=== PATIENT | male | born 1955 | race Caucasian/White ===

== ENCOUNTER → 2020-10-29 08:02 | Outpatient (BNVA) | payer OTHER, SELFPAY | PROVIDERS: Visit Provider Psychiatry & Neurology Neurology | DX: Z76.89 Persons encountering health services in other specified circumstances (principal) ==

== ENCOUNTER 2020-11-15 07:52 | Outpatient (REF) | payer OTHER, SELFPAY ==
--- NOTE | 2020-11-15 07:55 | CT_ITS ---
EXAMINATION: CT MAXILLOFACIAL WITHOUT CONTRAST CLINICAL INFORMATION: Deviated septum. COMPARISON: None. TECHNIQUE: Multidetector helical imaging was performed in the axial plane with generation of coronal and sagittal reformatted images. This CT examination was performed using dose optimization techniques as appropriate, variously including the following: *Automated exposure control *Adjustment of mA and/or kV according to patient size (this includes techniques or standardized protocols for targeted exams where dose is matched to indication/reason for exam; i.e. extremities or head) *Use of iterative reconstruction technique DLP: 126 mGy-cm. FINDINGS: Aside from very mild mucosal thickening in the right maxillary antrum and in the ethmoid air cells, the remaining paranasal sinuses are fairly well aerated. There is a sigmoidal-shaped nasal septal deviation with a leftward curvature anterosuperiorly and a rightward curvature posteriorly. Nasal septal spurring projects into the right nasal passage with mild distortion of the right inferior turbinate. The ostiomeatal complexes are clear. The lamina papyracea are intact. The ethmoid roofs are asymmetric. The carotid canals are normally covered by bone. Multiple root canals noted. The mastoid air cells and visualized middle ear cavities are well aerated. The orbits are normal. The TMJs are unremarkable. The imaged portions of the brain demonstrate no acute abnormality. CT/CT sinus wo con IMPRESSION: Moderate sigmoidal-shaped nasal septal deviation with nasal septal spurring. Very mild mucosal thickening in the right maxillary and ethmoid sinuses.
== END 2020-11-15 07:53 | disposition home or self-care (01) ==
LOC: HO.CT 07:52
PROVIDERS: PCP Nurse Practitioner Family; Visit Provider Otolaryngology
DX: J34.2 Deviated nasal septum (principal); J33.8 Other polyp of sinus
CPT/HCPCS: 70486

== ENCOUNTER 2021-03-26 10:15 | Outpatient (REF) | payer OTHER, SELFPAY ==
[2021-03-26 10:59] LABS: Glucose Urine UA NEG (NEG); Leukocyte Esterase Urine NEG (NEG); Nitrite Urine NEG (NEG); Specific Gravity - Urine <= 1.005 (1.005-1.025); Urine Blood NEG (NEG); Urine Ketones NEG (NEG); Urine Protein NEG (NEG-TRACE)
[2021-03-26 11:01] LABS: Appearance Urine CLEAR; Color Urine STRAW
[2021-03-26 11:19] LABS: RBC Urine 0 /HPF (0); WBC Urine 0 /HPF (0-4)
== END 2021-03-26 10:16 | disposition home or self-care (01) ==
LOC: HO.LAB 10:15
PROVIDERS: PCP Nurse Practitioner Family; Visit Provider Urology
DX: N39.0 Urinary tract infection, site not specified (principal)
CPT/HCPCS: 81001; 87086

== ENCOUNTER 2021-03-31 10:15 | Outpatient (REF) | payer MEDICARE, OTHER, SELFPAY ==
--- NOTE | ~2021-03-31 | XR_ITS ---
EXAMINATION: XR HIP, LEFT CLINICAL INFORMATION: Pain left hip COMPARISON: None. TECHNIQUE: Two views of the left hip. FINDINGS: No fracture, dislocation, or destructive process. There is no focal joint narrowing or erosive change or definite subchondral sclerosis. Soft tissue planes are unremarkable. No widening left SI joint or pubis. XR/XR hip LT min 2V IMPRESSION: No focal joint narrowing or erosive change.
[2021-03-31 11:49] LABS: Alanine Aminotransferase 24 U/L (0-40); Albumin Level 4.8 g/dL (3.5-5.0); Alkaline Phosphatase 75 U/L (39-117); Anion Gap 12 (12-20); Aspartate Amino Transferase 17 U/L (5-37); Bilirubin Total 0.6 mg/dL (0.0-1.0); Blood Urea Nitrogen 20 mg/dL (9-16); Calcium 9.9 mg/dL (8.4-10.2); Carbon Dioxide 29 mmol/L (22-29); Chloride 104 mmol/L (96-108); Cholesterol 225 mg/dL; Estimated Glomerular Filt Rate > 60; Glucose Fasting 98 mg/dL (60-99); HDL Cholesterol 46 mg/dL; LDL Cholesterol Calculated 143 mg/dl; Sodium 140 mmol/L (135-145); Total Protein 7.5 g/dL (6.5-8.0); Triglycerides 184 mg/dL
[2021-03-31 12:13] LABS: Prostate Specific Antigen Scr 0.22 ng/mL (<0.05-4.0); TSH reflex Free T4 0.98 uIU/mL (0.32-4.0)
== END 2021-03-31 10:16 | disposition home or self-care (01) ==
LOC: HO.HMGCX 10:15
PROVIDERS: PCP Nurse Practitioner Family; Visit Provider Nurse Practitioner Family
DX: Z12.5 Encounter for screening for malignant neoplasm of prostate (principal); M25.552 Pain in left hip; I10 Essential (primary) hypertension
CPT/HCPCS: 36415; 73502; 80053; 80061; 84153; 84443

== ENCOUNTER 2021-04-04 09:11 | Outpatient (REF) | payer MEDICARE, OTHER, SELFPAY | END 2021-04-04 09:12 | disposition home or self-care (01) | LOC: HO.10HDL 09:11 | PROVIDERS: Visit Provider Physician Assistant Medical | DX: Z13.89 Encounter for screening for other disorder (principal) ==

== ENCOUNTER → 2021-04-17 08:06 | Outpatient (REF) | payer MEDICARE, OTHER, SELFPAY ==
--- NOTE | ~2021-04-17 | NM_ITS ---
Exercise Myocardial perfusion study Indication: Shortness of breath to evaluate for myocardial ischemia Technique: The patient was brought in for an exercise perfusion study on 04/17/2021. Patient performed exercise as per Suman protocol and was injected 40 mCi of sestamibi was given intravenously one target HR was achieved. Images were obtained using the SPECT gamma camera interlaced with the gating device. Images were obtained in supine position. Resting perfusion study was performed on 04/18/2021. Patient was administered 40 mCi of sestamibi intravenously at rest. Images were then obtained in supine position. Images obtained with and without CT attenuation. Total DLP 113 mGy-cm. Images were processed with the software and compared side to side in short axis, horizontal long axis and vertical long axis views. Findings: The stress perfusion study showed non attenuated images show mildly to moderately reduced uptake in the inferior wall of the LV myocardium. Remainder of the LV myocardium is normally perfused. Attenuation corrected images show normal uptake of radiotracer in all segments of LV myocardium. The gated study shows normal LV systolic function with calculated LVEF of 70%. LV cavity is normal in size. The gated study shows normal systolic wall thickening and contraction of all segments. There is no transient ischemic dilation. Resting study shows no change in perfusion pattern compared to stress perfusion study. Gating at rest reveals normal systolic wall motion with ejection fraction at 70%. The findings are consistent with normal myocardial perfusion. NM/NM vadim perf SPECT rest & str Impression: 1. Normal myocardial perfusion 2. Gated LVEF is 70% 3. Transient ischemic dilatation not present Stress EKG is negative for ischemia
--- NOTE | 2021-04-17 09:36 | CA_ITS ---
Acquisition Time: 2021-04-17 08:18:35 Total Exercise Time: 00:07:20 Test Indications: SOB, HTN Medications: SEE CHART Protocol: HIPOLITO Max HR: 142 BPM 91% of Pred: 155 BPM Max BP: 168/098 mmHG Max Work Load: 9.0 METS Exercise stress nuclear using Hipolito protocol, total of 7 min 20 sec, METS 9.00, TAPHR 91 %. Pt tolerated well, denies any anginal sx. EKG with isolated PVC's no ischemic changes seen during exercise or in recovery. Nuclear images to follow. Normotensive response to exercise. Test reviewed with Dr. Clarke. Referred By: Landon Wong Overread By: Raya Hearn NP
== END ==
LOC: HO.CARD 08:06
PROVIDERS: Visit Provider Nurse Practitioner Family
DX: R06.02 Shortness of breath (principal)
CPT/HCPCS: 78452; 93016; 93017; 93018; A9500

== ENCOUNTER → 2021-08-15 09:02 | Outpatient (BNVA) | payer MEDICARE, OTHER, SELFPAY | PROVIDERS: PCP Nurse Practitioner Family; Visit Provider Urology | DX: N48.1 Balanitis (principal); N40.1 Benign prostatic hyperplasia with lower urinary tract symptoms; R35.1 Nocturia | CPT/HCPCS: 51798; 99212 ==

== ENCOUNTER → 2021-09-16 08:55 | Outpatient (BNVA) | payer MEDICARE, OTHER, SELFPAY | PROVIDERS: PCP Nurse Practitioner Family; Visit Provider Urology | DX: N40.1 Benign prostatic hyperplasia with lower urinary tract symptoms (principal); R35.1 Nocturia | CPT/HCPCS: 52000; 99212 ==

== ENCOUNTER → 2021-11-07 11:14 | Outpatient (BNVA) | payer MEDICARE, OTHER, SELFPAY | PROVIDERS: PCP Nurse Practitioner Family; Visit Provider Urology ==

== ENCOUNTER 2021-12-17 11:05 | Outpatient (REF) | payer MEDICARE, OTHER, SELFPAY ==
[2021-12-17 13:58] LABS: MANUAL DIFF FLAG NO
[2021-12-17 14:01] LABS: Basophils Percent Auto 0.6 % (0-2); Eosinophils Absolute Auto 0.1 X10*3/uL (0.0-0.4); Eosinophils Percent Auto 2.3 % (0-4); Hematocrit 43.4 % (42.0-52.0); Hemoglobin 14.8 g/dl (14.0-18.0); Imm Gran Abs Auto 0.01 X10*3/uL (0.00-0.03); Imm Gran Pct Auto 0.2 % (0.0-0.4); Lymphocytes Absolute Auto 1.7 X10*3/uL (1.2-4.9); Lymphocytes Percent Auto 32.5 % (20-40); Mean Corpuscular HGB Conc 34.1 g/dl (31.0-36.0); Mean Corpuscular Hemoglobin 29.4 pg (27.0-33.0); Mean Corpuscular Volume 86.3 fL (80.0-98.0); Mean Platelet Volume 9.6 fL (9.4-12.4); Monocytes Absolute Auto 0.5 X10*3/uL (0.1-1.2); Monocytes Percent Auto 9.9 % (2-11); Neutrophils Absolute Auto 2.9 x10*3/uL (2.0-8.3); Neutrophils Percent Auto 54.5 % (45-73); Platelet Count 224 X10*3/uL (160-400); Red Blood Count 5.03 X10*6/uL (4.60-5.80); Red Cell Distribution Width 12.8 % (11.0-16.0); White Blood Count 5.2 X10*3/uL (4.8-10.8)
[2021-12-17 14:28] LABS: Alanine Aminotransferase 43 U/L (0-40); Albumin Level 4.8 g/dL (3.5-5.0); Alkaline Phosphatase 76 U/L (39-117); Anion Gap 14 (12-20); Aspartate Amino Transferase 28 U/L (5-37); Bilirubin Total 0.6 mg/dL (0.0-1.0); Blood Urea Nitrogen 16 mg/dL (9-16); Calcium 10.1 mg/dL (8.4-10.2); Carbon Dioxide 27 mmol/L (22-29); Chloride 102 mmol/L (96-108); Estimated Glomerular Filt Rate 57; Glucose Random 100 mg/dL (60-115); Potassium 4.6 mmol/L (3.3-5.1); Sodium 138 mmol/L (135-145); Total Protein 7.9 g/dL (6.5-8.0)
== END 2021-12-17 11:06 | disposition home or self-care (01) ==
LOC: HO.10HDL 11:05
PROVIDERS: Visit Provider Physician Assistant Medical
DX: L40.0 Psoriasis vulgaris (principal); Z79.899 Other long term (current) drug therapy
CPT/HCPCS: 36415; 80053; 85025

== ENCOUNTER 2022-12-09 14:50 | Outpatient (REF) | payer MEDICARE, OTHER, SELFPAY ==
[2022-12-12 05:29] LABS: TS Negative Control Passed; TS Panel A 2; TS Panel B 4; TS Positive Control Passed; TSpotTB Negative (Negative)
== END 2022-12-09 14:51 | disposition home or self-care (01) ==
LOC: HO.LAB 14:50
PROVIDERS: PCP Nurse Practitioner Family; Visit Provider Physician Assistant Medical
DX: Z11.1 Encounter for screening for respiratory tuberculosis (principal); L40.0 Psoriasis vulgaris
CPT/HCPCS: 36415; 86481

== ENCOUNTER 2023-07-22 13:02 | Outpatient (AMB) | payer MEDICARE, OTHER, SELFPAY ==
--- NOTE | 2023-07-22 13:20 | MHC.PC.OV ---
Vital Signs 07/22/23 13:21 Height 6 ft 1 in Weight 278 lb BMI 36.7 BP 142/94 H Blood Pressure Location Rt brachial Position Sitting Pulse 88 Pulse Source Pulse Oximeter Pulse Oximetry (%) 98 Oxygen Delivery Method Room Air Intake Visit Reasons: 3 month ffup asthma Allergies oxycodone Allergy (Unknown, Verified 07/22/23 13:25) itchy ENVIRONMENTAL Allergy (Unknown, Uncoded 07/22/23 13:25) ITCHY EYES, WHEEZING statins Allergy (Unknown, Uncoded 07/22/23 13:25) hives Tremfya Allergy (Unknown, Uncoded 07/22/23 13:25) secondary rash Medication List - Last Reconciled 07/22/23 by ANANT Wallace albuterol sulfate 2.5 mg (3 mL) inhalation QID PRN aspirin (Adult Aspirin Regimen) 81 mg PO DAILY famotidine (Pepcid AC) 20 mg PO BID loratadine (Allergy Relief (loratadine)) 10 mg PO DAILY pantoprazole 40 mg PO DAILY 90 days secukinumab (Cosentyx Pen 300 mg/2 Pens () mg subcut Q4W Tobacco use date assessed: 07/22/23 Fall risk assessment: No Falls in past year Last assessed Fall Risk: 07/22/23 Dental Screening Dental Screen Date: 07/22/23 Did you have a dental visit in the last 12 months?: Yes Did you have a dental problem in the last 6 months where you did not have access to dental care?: No Was dental information given to patient?: Patient has dentist HPI 3 month ffup asthma HPI Details HTN: Pt is not currently taking any medications for this. Pt reports that his blood pressure is much better at home. 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 He will continue to monitor his BP at home. Denies chest pain, shortness of breath, headache, dizziness, and blurred vision. Pt c/o pain to his right thumb after an injury many years ago. He reports pain to the base of his thumb. Will order xr. Due for colon screen, will refer to GI. Due for PSA, will order. Denies dribbling with urination, weak stream, and nocturia. [facility] Medical History (Updated 07/22/23 @ 14:17 by ANANT Wallace) Asthma Balanitis Benign prostatic hyperplasia with lower urinary tract symptoms Feeling of incomplete bladder emptying GERD (gastroesophageal reflux disease) Gross hematuria Nocturia Psoriatic arthritis Surgical History H/O umbilical hernia repair History of prostate surgery History of surgery Family History Father Diabetes Hypertension Cancer Mother Hypertension Cancer Social History Housing: House Patient Tobacco Use Status: Never used Tobacco e-Cigarette/Vaping Use: Never Used Second Hand Smoke Exposure: No Current occupational status: retired Cognitive needs: No Hearing needs: No Vision needs: No Review of Systems Const Reports as per HPI Physical exam (Primary Care) Vital Signs: Last Vital Signs Pulse 88 07/22/23 13:21 BP 142/94 H 07/22/23 13:21 Pulse Ox 98 07/22/23 13:21 Oxygen Delivery Method Room Air 07/22/23 13:21 BMI result Body Mass Index 36.7 Tobacco/Smoking Status: Tobacco use Status Tobacco use date assessed 07/22/23 07/22/23 13:29 Patient Tobacco Use Status Never used Tobacco 07/22/23 13:21 e-Cigarette/Vaping Use Never Used 07/22/23 13:29 Const General: cooperative Nutritional Appearance: obese Orientation/consciousness: patient oriented x3 Resp Effort & Inspection: normal respiratory effort Auscultation: clear to auscultation bilaterally Cardio Rate: regular rate Rhythm: regular rhythm Heart sounds: S1 normal heart sound present and S2 normal heart sound present Neuro General: patient oriented x3 Extrem Other: right thenar swollen, slight tenderness with touch, weakness with flexion of right thumb, extensive varicose veins to BLE Right lower extremity: no edema Left lower extremity: no edema Psych Appearance: grossly normal Mental Status: mental status grossly normal Speech and movement: Normal speech and movement present Affect: normal affect Attitude: cooperative Thought process: Normal thought process present Thought content: Normal thought content present Insight: Good insight present (Psych) Judgement: Good judgement present (Psych) Assessment and Plan Assessment & Plan (1) HTN (hypertension): Code(s): I10 - Essential (primary) hypertension Plan: Continue to monitor BP at home (2) Screening for colon cancer: Code(s): Z12.11 - Encounter for screening for malignant neoplasm of colon Plan: Referred to GI (3) Screening PSA (prostate specific antigen): Code(s): Z12.5 - Encounter for screening for malignant neoplasm of prostate Plan: PSA ordered (4) Pain of right thumb: Code(s): M79.644 - Pain in right finger(s) (5) Obesity: Code(s): E66.9 - Obesity, unspecified (6) Obstructive sleep apnea: Code(s): G47.33 - Obstructive sleep apnea (adult) (pediatric) Plan The patient agreed to the use of a biomedical field service engineer for this encounter. Scribed for KACY Quintanilla-TRAMAINE by Cathi Barkley biomedical field service engineer, on 07/22/2023 at 13:30 EST. Orders: Orders Comprehensive Bypro. Panel Fast Today I10 - Essential (primary) hypertension Lipid Panel Today I10 - Essential (primary) hypertension TSH reflex Free T4 Today I10 - Essential (primary) hypertension Complete Blood Count Auto Diff Today I10 - Essential (primary) hypertension UA CC w/rflx Micro + Cult Today I10 - Essential (primary) hypertension Prostate Specific Antigen Scr Today Z12.5 - Encounter for screening for malignant neoplasm of prostate XR finger RT min 2V Today M79.644 - Pain in right finger(s) CA echo transthoracic complete Today E66.9 - Obesity, unspecified, G47.33 - Obstructive sleep apnea (adult) (pediatric), I10 - Essential (primary) hypertension Referrals Gastroenterology Referral Z12.11 - Encounter for screening for malignant neoplasm of colon Coding Level of Care Code Est Pt Level 3 (09203) Diagnoses HTN (hypertension) I10 Screening for colon cancer Z12.11 Screening PSA (prostate specific antigen) Z12.5 Pain of right thumb M79.644 Obesity E66.9 Obstructive sleep apnea G47.33
[2023-07-22 13:21] VITALS: BP 142/94; PULSE 88; O2SAT 98; BMI 36.7
== END 2023-07-22 14:32 | disposition home or self-care (01) ==
PROVIDERS: PCP Nurse Practitioner Family; Visit Provider Nurse Practitioner Family
DX: I10 Essential (primary) hypertension (principal); M79.644 Pain in right finger(s); E66.9 Obesity, unspecified; Z68.36 Body mass index [BMI] 36.0-36.9, adult; G47.33 Obstructive sleep apnea (adult) (pediatric)
CPT/HCPCS: 99213

== ENCOUNTER 2023-07-23 08:23 | Outpatient (REF) | payer MEDICARE, OTHER, SELFPAY ==
--- NOTE | ~2023-07-23 | XR_ITS ---
EXAMINATION: XR THUMB, RIGHT CLINICAL INFORMATION: Pain. COMPARISON: None available. TECHNIQUE: Three views of the right thumb. FINDINGS: There is bony demineralization. There is mild osteoarthritic change of the interphalangeal joint of the thumb. There is marked osteoarthritic change of the first carpometacarpal joint. No fracture or dislocation is seen. Normal sesamoid bones are noted. There is no focal soft tissue swelling, gas or foreign body. XR/XR finger RT min 2V IMPRESSION: There is mild osteoarthritic change of the interphalangeal joint of the right thumb, and marked osteoarthritic change is seen of the first carpometacarpal joint. No fracture or dislocation is seen.
[2023-07-23 11:22] LABS: MANUAL DIFF FLAG NO
[2023-07-23 11:33] LABS: Basophils Absolute Auto 0.1 X10*3/uL (0.0-0.2); Basophils Percent Auto 1.7 % (0-2); Eosinophils Absolute Auto 0.2 X10*3/uL (0.0-0.4); Hematocrit 42.9 % (42.0-52.0); Hemoglobin 14.6 g/dl (14.0-18.0); Imm Gran Abs Auto 0.01 X10*3/uL (0.00-0.03); Imm Gran Pct Auto 0.2 % (0.0-0.4); Lymphocytes Absolute Auto 1.4 X10*3/uL (1.2-4.9); Lymphocytes Percent Auto 28.3 % (20-40); Mean Corpuscular Hemoglobin 29.6 pg (27.0-33.0); Mean Platelet Volume 9.9 fL (9.4-12.4); Monocytes Absolute Auto 0.5 X10*3/uL (0.1-1.2); Monocytes Percent Auto 10.7 % (2-11); Neutrophils Absolute Auto 2.6 x10*3/uL (2.0-8.3); Neutrophils Percent Auto 55.1 % (45-73); Platelet Count 223 X10*3/uL (160-400); Red Blood Count 4.93 X10*6/uL (4.60-5.80); Red Cell Distribution Width 12.7 % (11.0-16.0); White Blood Count 4.8 X10*3/uL (4.8-10.8)
[2023-07-23 11:39] LABS: Appearance Urine Clear; Color Urine Yellow; Glucose Urine UA Negative (Negative); Leukocyte Esterase Urine Negative (Negative); Nitrite Urine Negative (Negative); PH 5.5 (5.0-9.0); Specific Gravity - Urine 1.015 (1.005-1.025); Urine Blood Negative (Negative); Urine Ketones Negative (Negative); Urine Protein Negative (Neg-Trace)
[2023-07-23 12:25] LABS: Alanine Aminotransferase 46 U/L (0-40); Albumin Level 4.6 g/dL (3.5-5.0); Alkaline Phosphatase 77 U/L (39-117); Anion Gap 13 (12-20); Aspartate Amino Transferase 27 U/L (5-37); Bilirubin Total 0.5 mg/dL (0.0-1.0); Blood Urea Nitrogen 17 mg/dL (9-16); Calcium 9.8 mg/dL (8.4-10.2); Carbon Dioxide 27 mmol/L (22-29); Chloride 105 mmol/L (96-108); Cholesterol 228 mg/dL (<200); Estimated Glomerular Filt Rate 57; Glucose Fasting 112 mg/dL (60-99); HDL Cholesterol 49 mg/dL (>40); LDL Cholesterol Calculated 134 mg/dL (<100); Potassium 4.8 mmol/L (3.3-5.1); Sodium 140 mmol/L (135-145); Total Protein 7.5 g/dL (6.5-8.0); Triglycerides 227 mg/dL (<150)
[2023-07-23 12:28] LABS: TSH reflex Free T4 1.46 uIU/mL (0.32-4.0)
[2023-07-23 12:35] LABS: Prostate Specific Antigen Scr 0.23 ng/mL (<0.05-4.0)
== END 2023-07-23 08:24 | disposition home or self-care (01) ==
LOC: HO.HMGCX 08:23
PROVIDERS: PCP Nurse Practitioner Family; Visit Provider Nurse Practitioner Family
DX: M79.644 Pain in right finger(s) (principal); I10 Essential (primary) hypertension; Z12.5 Encounter for screening for malignant neoplasm of prostate
CPT/HCPCS: 36415; 73140; 80053; 80061; 81003; 84153; 84443; 85025

== ENCOUNTER 2023-08-10 08:27 | Outpatient (REF) | payer MEDICARE, OTHER, SELFPAY ==
--- NOTE | ~2023-08-10 | US_ITS ---
EXAMINATION: US ABDOMEN COMPLETE CLINICAL INFORMATION: Elevated liver enzymes. COMPARISON: Ultrasound abdomen 10/18/2019. TECHNIQUE: Real-time imaging of the abdominal viscera. Technically difficult study secondary to body habitus. FINDINGS: PANCREAS: Normal. ABDOMINAL AORTA: The proximal, mid, and distal segments are normal in caliber. INFERIOR VENA CAVA: Visualized portions are normal. LIVER: The liver is normal in size. The liver contour is normal. There is diffuse increased liver parenchymal echogenicity, consistent with hepatic steatosis. No focal hepatic lesion. There is no intrahepatic biliary duct dilatation seen. GALLBLADDER: Normal. The gallbladder is physiologically distended without evidence of stones, sludge, polyps, wall thickening or pericholecystic fluid. COMMON BILE DUCT: Normal in caliber measuring 0.6 cm in diameter. RIGHT KIDNEY: Normal. No hydronephrosis. No renal calculi or focal parenchymal lesions. The kidney measures 11.8 cm in maximum dimension. LEFT KIDNEY: Previously seen left renal cyst which measured only 1 cm is not seen on the current study. No hydronephrosis. No renal calculi or focal parenchymal lesions. The kidney measures 12.1 cm in maximum dimension. SPLEEN: Normal. The spleen measures 11.0 cm in maximum dimension. FREE FLUID: None. US/US abdomen complete IMPRESSION: Hepatic steatosis.
== END 2023-08-10 08:28 | disposition home or self-care (01) ==
LOC: HO.HMGCX 08:27
PROVIDERS: PCP Nurse Practitioner Family; Visit Provider Nurse Practitioner Family
DX: R74.8 Abnormal levels of other serum enzymes (principal)
CPT/HCPCS: 76700

== ENCOUNTER → 2023-08-23 07:52 | Outpatient (REF) | payer MEDICARE, OTHER, SELFPAY ==
--- NOTE | 2023-08-23 07:54 | CA_ITS ---
Transthoracic Echocardiogram Patient (Last, First, Middle): Kwabena Lucio J Gender: Male Date of : 1955 Age: 68 Procedure Date: 08/23/2023 Procedure Type: Transthoracic Echocardiogram Location: OP Height: 185.42 cm Weight: 121.56 kg BSA: 2.44 m2 Heart Rate: bpm BP: 160 / 94 mmHg Security Analyst: YULISSA Referring MD: Landon Wong [facility]- Teletype Telegrapher: Jhonatan Murcia MD Symptoms: I10 - Essential (primary) hypertension Study Quality: Adequate with contrast ECG Rhythm: Sinus Conclusions: - 1. Normal LV ejection fraction of 65-70% with mild LVH with grade 1 diastolic dysfunction 2. Mild aortic regurgitation 3. Mildly dilated ascending aorta at 3.8 cm 4. No gross pericardial effusion Findings Left Ventricle Normal left ventricular size and systolic function. There is mildly increased left ventricular wall thickness. The visually estimated ejection fraction is between 65-70%. Spectral Doppler is indicative of an impaired relaxation filling pattern. E/E prime ratio is <8, consistent with normal filling pressures. Evidence suggests grade I (mild) diastolic dysfunction. Right Ventricle Normal right ventricular cavity size and systolic function. Atria The left atrium is likely dilated. Interatrial shunt cannot be excluded. The right atrium was not well visualized. Aortic Valve The aortic valve was not well visualized. There is no aortic valve stenosis. There is mild aortic valve regurgitation. Mitral Valve Likely normal mitral valve structure and function. There is trace mitral valve regurgitation. There is no mitral valve stenosis. Pulmonic Valve The pulmonic valve is likely normal. There is trace pulmonic valve regurgitation. Tricuspid Valve Normal tricuspid valve structure. Tricuspid regurgitation envelope is inadequate for calculation of right ventricular systolic pressure. Great Vessels The pulmonary artery was not well visualized. There is mild dilatation of the ascending aorta measuring 3.80 cm. Venous The inferior vena cava is normal in size and collapses greater than 50% with inspiration. Pericardium/Pleural There is no evidence of pericardial effusion. Measurements 2D Linear Measurements IVSd: 1.31 0.6-0.9/0.6-1.0 cm LVIDd: 4.45 3.9-5.3/4.2-5.9 cm LVIDd Index: 1.82 2.4-3.2/2.2-3.1 cm/m2 LVIDs: 2.52 2.0-3.6 cm LVPWd: 1.22 0.7-1.1 cm LA Diam: 3.70 2.7-3.8/3.0-4.0 cm LAIDs Index: 1.52 1.5-2.3 cm/m2 LV Mass: 262.03 67-162/88-224 g LV Mass Index: 107.39 43-95/49-115 g/m2 LVOT Diam: 2.20 3.0+(-)1.3 cm 2D Systolic Function EF 4C: 65.60 >55% EF 2C: 69.50 >55% EF BiP: 68.00 >55% Mitral Valve MV Pk E: 0.64 MV PK A: 0.81 MV Decel Time: 254.00 E/A: 0.80 E'Lateral: 8.49 E'Medial: 6.31 E/E' Med: 10.10 E/E' Lat: 7.50 PHT: 74.00 MVA PHT: 2.97 Decel Taliaferro: 2.52 Aortic Valve AoV Pk Kiko: 1.42 AoV Mn Kiko: 1.03 AoV VTI: 0.29 AoV Pk Grad: 8.00 Aov Mn Grad: 5.00 [place] Cont.VTI: 3.94 LVOT LVOT Pk Kiko: 1.29 LVOT Mn Kiko: 1.00 LVOT VTI: 0.30 LVOT Pk Grad: 7.00 LVOT Mn Grad: 4.00 LVOT Diam: 2.20 LVOT Area: 3.80 Diastolic Function MV Pk E: 0.64 MV Pk A: 0.81 E/A: 0.80 E'Medial: 6.31 E/E' Med: 10.10 E' Laterial: 8.49 E/E' Lat: 7.50 Right Ventricle TAPSE (mm): 22.80 TVS' Kiko: 10.10 Tricuspid Valve RA Press: 3.00 Great Vessels Aorta Sinus of Valsalva: 3.72 2.0-3.5 cm Ao Asc: 3.80 2.1-3.4 cm Updated in Other Vendor System with Status of Final Jhonatan Murcia MD electronically signed on 08/23/2023 4:46:24 PM with status of Final
== END ==
LOC: HO.CARD 07:52
PROVIDERS: PCP Nurse Practitioner Family; Visit Provider Nurse Practitioner Family
DX: I10 Essential (primary) hypertension (principal); E66.9 Obesity, unspecified; G47.33 Obstructive sleep apnea (adult) (pediatric)
CPT/HCPCS: 93306; Q9957

== ENCOUNTER → 2023-08-23 07:54 | Outpatient (BNV) | payer MEDICARE, OTHER, SELFPAY | PROVIDERS: PCP Nurse Practitioner Family; Visit Provider Internal Medicine Cardiovascular Disease | DX: I35.1 Nonrheumatic aortic (valve) insufficiency (principal); I51.9 Heart disease, unspecified | CPT/HCPCS: 93306 ==

== ENCOUNTER 2023-08-24 11:22 | Outpatient (AMB) | payer MEDICARE, OTHER, SELFPAY ==
[2023-08-24 11:27] VITALS: BP 152/90; PULSE 82; TEMP 36.1; O2SAT 96; BMI 35.8
--- NOTE | 2023-08-24 11:27 | MHC.OFFWIV ---
Intake Vital Signs 08/24/23 11:27 Height 6 ft 1 in Weight 271 lb BMI 35.8 BP 152/90 H Blood Pressure Location Lt brachial Position Sitting Pulse 82 Pulse Source Pulse Oximeter Temp 97.0 F Temp Source Temporal Artery Scan Pulse Oximetry (%) 96 Oxygen Delivery Method Room Air Intake Visit Reasons: EST/sinus infection Intake Note: pt is here for c/o sinus infection, cough, congestion Patient Tobacco Use Status: Never used Tobacco Allergies oxycodone Allergy (Unknown, Verified 08/24/23 11:51) itchy ENVIRONMENTAL Allergy (Unknown, Uncoded 08/24/23 11:51) ITCHY EYES, WHEEZING statins Allergy (Unknown, Uncoded 08/24/23 11:51) hives Tremfya Allergy (Unknown, Uncoded 08/24/23 11:51) secondary rash Medication List - Last Reconciled 08/24/23 by Jermain Lin MD albuterol sulfate 2.5 mg (3 mL) inhalation QID PRN aspirin (Adult Aspirin Regimen) 81 mg PO DAILY ezetimibe 10 mg PO DAILY famotidine (Pepcid AC) 20 mg PO BID loratadine (Allergy Relief (loratadine)) 10 mg PO DAILY pantoprazole 40 mg PO DAILY 90 days secukinumab (Cosentyx Pen 300 mg/2 Pens () mg subcut Q4W Do you need a note to return to daycare/school/sports/work: Yes HPI EST/sinus infection HPI Details Patient presents for a sick visit. Reporting symptoms of sinus congestion, sore throat and difficulty swallowing. Low-grade fever. No family member is sick. No recent travel. Patient reports symptoms of malaise and fatigue. [facility] Medical History (Updated 08/24/23 @ 11:53 by Jermain Lin MD) Mild ascending aorta dilatation Psoriatic arthritis Balanitis Gross hematuria Feeling of incomplete bladder emptying Benign prostatic hyperplasia with lower urinary tract symptoms Nocturia Asthma GERD (gastroesophageal reflux disease) Surgical History History of surgery History of prostate surgery H/O umbilical hernia repair Family History Father Diabetes Hypertension Cancer Mother Hypertension Cancer Social History Housing: House Patient Tobacco Use Status: Never used Tobacco e-Cigarette/Vaping Use: Never Used Second Hand Smoke Exposure: No Current occupational status: retired Cognitive needs: No Hearing needs: No Vision needs: No Physical Exam Vital Signs: Last Vital Signs Temp 97.0 F 08/24/23 11:27 Pulse 82 08/24/23 11:27 BP 152/90 H 08/24/23 11:27 Pulse Ox 96 08/24/23 11:27 Oxygen Delivery Method Room Air 08/24/23 11:27 BMI result Body Mass Index 35.8 Const General: cooperative and healthy appearing Nutritional Appearance: well nourished Orientation/consciousness: patient oriented x3 Limitations: no limitations HEENT Head: Yes normal to inspection Eyes General: appearance normal, both eyes and all related structures Neck Neck: Yes normal visual inspection Chest Chest palpation & inspection: normal palpation of entire chest wall Resp Other: Scattered wheeze. Effort & Inspection: normal respiratory effort Neuro General: patient oriented x3 Assessment & Plan Assessment & Plan (1) Acute bronchitis: Code(s): J20.9 - Acute bronchitis, unspecified Plan Chest x-ray was reviewed by me. Antibiotics, prednisone and albuterol called in. If symptoms do not improve to follow-up here. Orders: Orders XR chest 2V Today R05.9 - Cough, unspecified Coding Level of Care Code Est Pt Level 4 (39064) Diagnoses Acute bronchitis J20.9
== END 2023-08-24 12:40 | disposition home or self-care (01) ==
PROVIDERS: PCP Nurse Practitioner Family; Visit Provider Internal Medicine
DX: J20.9 Acute bronchitis, unspecified (principal)
CPT/HCPCS: 99214

== ENCOUNTER 2023-08-24 11:40 | Outpatient (REF) | payer MEDICARE, OTHER, SELFPAY ==
--- NOTE | ~2023-08-24 | XR_ITS ---
EXAMINATION: XR CHEST 2 VIEW CLINICAL INFORMATION: Fall COMPARISON: 07/15/2020 TECHNIQUE: PA and lateral views of the chest obtained. FINDINGS: The lungs are clear. There are no pleural effusions. The cardiomediastinal silhouette is normal. XR/XR chest 2V IMPRESSION: No acute cardiopulmonary disease.
== END 2023-08-24 11:41 | disposition home or self-care (01) ==
LOC: HO.HMGCX 11:40
PROVIDERS: PCP Nurse Practitioner Family; Visit Provider Internal Medicine
DX: R05.9 Cough, unspecified (principal)
CPT/HCPCS: 71046

== ENCOUNTER 2023-09-14 16:40 | Outpatient (REF) | payer MEDICARE, OTHER, SELFPAY ==
--- NOTE | ~2023-09-14 | XR_ITS ---
EXAMINATION: XR HAND, RIGHT CLINICAL INFORMATION: Pain in right hand. COMPARISON: None available. TECHNIQUE: PA, lateral, and oblique views of the right hand. Radiopaque marker placed by technologist to indicate the area of concern as indicated by the patient along the shaft of the 1st metacarpal. FINDINGS: The bones are diffusely demineralized. Severe degenerative changes at the 1st carpometacarpal joint with loss of the joint space, remodeling, and periarticular sclerotic and cystic change. There is radial subluxation of the 1st metacarpal. Mild degenerative changes in scattered IP joints. XR/XR hand RT min 3V IMPRESSION: Severe degenerative changes 1st carpometacarpal joint. No displaced fracture. Recommend followup imaging in 10-14 days if fracture is suspected.
== END 2023-09-14 16:41 | disposition home or self-care (01) ==
LOC: HO.HOSX 16:40
PROVIDERS: Visit Provider Orthopaedic Surgery
DX: M79.641 Pain in right hand (principal)
CPT/HCPCS: 73130

== ENCOUNTER 2023-09-15 07:54 | Outpatient (AMB) | payer MEDICARE, OTHER, SELFPAY ==
[2023-09-15 08:08] VITALS: BMI 35.8
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
== END 2023-09-15 08:53 | disposition home or self-care (01) ==
PROVIDERS: PCP Nurse Practitioner Family; Visit Provider Orthopaedic Surgery
DX: M18.11 Unilateral primary osteoarthritis of first carpometacarpal joint, right hand (principal)
CPT/HCPCS: 99203

== ENCOUNTER → 2023-09-15 07:54 | Outpatient (BNVA) | payer MEDICARE, OTHER, SELFPAY | PROVIDERS: PCP Nurse Practitioner Family; Visit Provider Orthopaedic Surgery | DX: M79.641 Pain in right hand (principal) ==

== ENCOUNTER 2023-10-29 08:04 | Outpatient (REF) | payer MEDICARE, OTHER, SELFPAY ==
[2023-10-29 12:05] LABS: Alanine Aminotransferase 55 U/L (0-40); Albumin Level 4.7 g/dL (3.5-5.0); Alkaline Phosphatase 68 U/L (39-117); Anion Gap 13 (12-20); Aspartate Amino Transferase 33 U/L (5-37); Bilirubin Total 0.4 mg/dL (0.0-1.0); Blood Urea Nitrogen 24 mg/dL (9-16); Calcium 9.8 mg/dL (8.4-10.2); Carbon Dioxide 28 mmol/L (22-29); Chloride 106 mmol/L (96-108); Cholesterol 217 mg/dL (<200); Estimated Glomerular Filt Rate > 60; Glucose Fasting 106 mg/dL (60-99); HDL Cholesterol 50 mg/dL (>40); LDL Cholesterol Calculated 135 mg/dL (<100); Potassium 5.1 mmol/L (3.3-5.1); Sodium 142 mmol/L (135-145); Total Protein 7.6 g/dL (6.5-8.0); Triglycerides 164 mg/dL (<150)
== END 2023-10-29 08:05 | disposition home or self-care (01) ==
LOC: HO.HMGCLDS 08:04
PROVIDERS: PCP Nurse Practitioner Family; Visit Provider Nurse Practitioner Family
DX: E78.5 Hyperlipidemia, unspecified (principal); R74.8 Abnormal levels of other serum enzymes
CPT/HCPCS: 36415; 80053; 80061

== ENCOUNTER 2023-11-10 08:10 | Outpatient (AMB) | payer MEDICARE, OTHER, SELFPAY ==
--- NOTE | 2023-11-10 09:17 | MHC.OFFWIV ---
Intake Vital Signs 11/10/23 09:19 Height 6 ft 1 in Weight 280 lb 4 oz BMI 37.0 BP 146/90 H Blood Pressure Location Lt brachial Position Sitting Pulse 96 Pulse Source Pulse Oximeter Temp 97.6 F Temp Source Temporal Artery Scan Pulse Oximetry (%) 97 Oxygen Delivery Method Room Air Intake Visit Reasons: EP, sore throat, congestion ([phone]) Intake Note: Pt is here c/o sore throat and chest congestion for the past five days. Patient Tobacco Use Status: Never used Tobacco Allergies oxycodone Allergy (Unknown, Verified 11/10/23 09:45) itchy ENVIRONMENTAL Allergy (Unknown, Uncoded 11/10/23 09:18) ITCHY EYES, WHEEZING statins Allergy (Unknown, Uncoded 11/10/23 09:18) hives Tremfya Allergy (Unknown, Uncoded 11/10/23 09:18) secondary rash Medication List - Last Reconciled 11/10/23 by Jovana Carrillo PA-C albuterol sulfate 2.5 mg (3 mL) inhalation QID PRN aspirin (Adult Aspirin Regimen) 81 mg PO DAILY doxycycline hyclate 100 mg PO BID ezetimibe 10 mg PO DAILY famotidine (Pepcid AC) 20 mg PO BID loratadine (Allergy Relief (loratadine)) 10 mg PO DAILY pantoprazole 40 mg PO DAILY 90 days secukinumab (Cosentyx Pen 300 mg/2 Pens () mg subcut Q4W Do you need a note to return to daycare/school/sports/work: No HPI HPI Comments History of Present Illness Details sore throat, sinus pain and tenderness, bad taste in mouth started 5 days hx of recurrent sinus infections when laying down at night causes PND and coughing last sinus infection treated w/ ab 2 months ago UTD on vaccines [facility] Medical History (Updated 11/10/23 @ 09:22 by Jovana Carrillo PA-C) Mild ascending aorta dilatation Psoriatic arthritis Balanitis Gross hematuria Feeling of incomplete bladder emptying Benign prostatic hyperplasia with lower urinary tract symptoms Nocturia Asthma GERD (gastroesophageal reflux disease) Surgical History History of surgery History of prostate surgery H/O umbilical hernia repair Family History Father Diabetes Hypertension Cancer Mother Hypertension Cancer Social History (Updated 09/15/23 @ 08:15 by Anuradha Alarcon [facility]) Housing: House Patient Tobacco Use Status: Never used Tobacco e-Cigarette/Vaping Use: Never Used Second Hand Smoke Exposure: No Current occupational status: 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 Cognitive needs: No Hearing needs: No Vision needs: No Review of Systems Const All systems reviewed & are unremarkable except as noted in HPI and below Physical Exam Vital Signs: Last Vital Signs Temp 97.6 F 11/10/23 09:19 Pulse 96 11/10/23 09:19 BP 146/90 H 11/10/23 09:19 Pulse Ox 97 11/10/23 09:19 Oxygen Delivery Method Room Air 11/10/23 09:19 BMI result Body Mass Index 37.0 Const Other: awake alert nad TM intact, + effusion and loss of landmarks on R, mild injection on L Nares patent, turbinates pale and edematous bilat R>L, frontal sinuses on R tender w/ palp + PND, otherwise pharynx clear RRR LS CTAB Results AMB Rapid Strep AMB Rapid Strep Negative Last Edit by Vi Sanchez CMA on 11/10/23 09:52 Results Reviewed Results Reviewed: Laboratory Last Values Strep Scn Rapid Clinic Negative 11/10/23 09:50 Assessment & Plan Assessment & Plan (1) Sinusitis: Code(s): J32.9 - Chronic sinusitis, unspecified Qualifiers: Sinusitis location: frontal Chronicity: acute Recurrence: recurrent Qualified Code(s): J01.11 - Acute recurrent frontal sinusitis Plan . Orders: Orders AMB Rapid Strep Screen Today Z13.9 - Encounter for screening, unspecified Medications: New prednisone 50 mg PO DAILY 5 days 5 tabs 0RF azithromycin For 250 mg dose pack: take 500 mg today (day 1), then 250 mg for 4 days (days 2-5) PO 5 days 6 tabs 0RF Coding Level of Care Code Est Pt Level 3 (00455) Diagnoses Acute recurrent frontal sinusitis J01.11 Sinusitis location: frontal Chronicity: acute Recurrence: recurrent
[2023-11-10 09:19] VITALS: BP 146/90; PULSE 96; TEMP 36.4; O2SAT 97; BMI 37.0
== END 2023-11-10 10:16 | disposition home or self-care (01) ==
PROVIDERS: PCP Nurse Practitioner Family; Visit Provider Nurse Practitioner Family
DX: J01.11 Acute recurrent frontal sinusitis (principal); J02.9 Acute pharyngitis, unspecified
CPT/HCPCS: 87880; 99213

== ENCOUNTER 2023-11-30 14:20 | Outpatient (AMB) | payer MEDICARE, OTHER, SELFPAY ==
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
== END 2023-11-30 15:19 | disposition home or self-care (01) ==
PROVIDERS: PCP Nurse Practitioner Family; Visit Provider Orthopaedic Surgery
DX: M18.11 Unilateral primary osteoarthritis of first carpometacarpal joint, right hand (principal)
CPT/HCPCS: 20600; 99213

== ENCOUNTER → 2023-11-30 14:20 | Outpatient (BNVA) | payer MEDICARE, OTHER, SELFPAY | PROVIDERS: PCP Nurse Practitioner Family; Visit Provider Orthopaedic Surgery | DX: M18.11 Unilateral primary osteoarthritis of first carpometacarpal joint, right hand (principal) | CPT/HCPCS: 20600; 99212; J1020 ==

== ENCOUNTER 2023-12-27 08:46 | Outpatient (AMB) | payer MEDICARE, OTHER, SELFPAY ==
[2023-12-27 08:58] VITALS: BP 150/88; PULSE 89; O2SAT 99; BMI 37.0
--- NOTE | 2023-12-27 08:58 | A.OFFPC_ITS ---
Vital Signs 12/27/23 08:58 Height 6 ft 1 in Weight 280 lb 2 oz BMI 37.0 BP 150/88 H Blood Pressure Location Rt brachial Position Sitting Pulse 89 Pulse Source Pulse Oximeter Pulse Oximetry (%) 99 Oxygen Delivery Method Room Air Intake Visit Reasons: Annual PE Intake Note: Pt is here for his Annual PE Allergies oxycodone Allergy (Unknown, Verified 12/27/23 09:02) itchy ENVIRONMENTAL Allergy (Unknown, Uncoded 12/27/23 09:02) ITCHY EYES, WHEEZING statins Allergy (Unknown, Uncoded 12/27/23 09:02) hives Tremfya Allergy (Unknown, Uncoded 12/27/23 09:02) secondary rash Medication List - Last Reconciled 12/27/23 by ANANT Wallace albuterol sulfate 2.5 mg (3 mL) inhalation Q4-6H PRN aspirin (Adult Aspirin Regimen) 81 mg PO DAILY ezetimibe 10 mg PO DAILY famotidine (Pepcid AC) 20 mg PO BID loratadine (Allergy Relief (loratadine)) 10 mg PO DAILY pantoprazole 40 mg PO DAILY 90 days Tobacco use date assessed: 12/27/23 Fall risk assessment: No Falls in past year Last assessed Fall Risk: 12/27/23 Dental Screening Dental Screen Date: 12/27/23 Did you have a dental visit in the last 12 months?: Yes Did you have a dental problem in the last 6 months where you did not have access to dental care?: No Was dental information given to patient?: Patient has dentist HPI Annual PE HPI Details Pt is here for a PE. Will order labs. PSA is up to date. He does report incomplete bladder emptying, nocturia, and dribbling with urination. Pt would like a different urologist, will refer. Due for colon screen. Pt has been referred to GI but would like to see a different provider, will refer again. Pt's blood pressure is elevated today. Will start losartan 25mg. 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 Denies chest pain, shortness of breath, headache, dizziness, and blurred vision. Informed pt that he can obtain his prevnar 20 vaccine at his pharmacy. [facility] Medical History (Updated 12/27/23 @ 10:05 by ANANT Wallace) Mild ascending aorta dilatation Psoriatic arthritis Balanitis Gross hematuria Feeling of incomplete bladder emptying Benign prostatic hyperplasia with lower urinary tract symptoms Nocturia Asthma GERD (gastroesophageal reflux disease) Surgical History History of surgery History of prostate surgery H/O umbilical hernia repair Family History Father Diabetes Hypertension Cancer Mother Hypertension Cancer Social History (Updated 09/15/23 @ 08:15 by Anuradha [facility]) Housing: House Patient Tobacco Use Status: Never used Tobacco e-Cigarette/Vaping Use: Never Used Second Hand Smoke Exposure: No Current occupational status: 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 1. Little interest or pleasure in doing things: not at all 2. Feeling down, depressed, or hopeless: not at all 3. Trouble falling or staying asleep, or sleeping too much: not at all 4. Feeling tired or having little energy: not at all 5. Poor appetite or overeating: more than half the days 6. Feeling bad about yourself - or that you are a failure or have let yourself or your family down: not at all 7. Trouble concentrating on things, such as reading the newspaper or watching television: not at all 8. Moving or speaking so slowly that other people could have noticed. Or the opposite - being so fidgety or restless that you have been moving around a lot more than usual: not at all 9. Thoughts that you would be better off or of hurting yourself in some way: not at all Total score: 2 Source: Developed by Drs. Dwight Ferreira, Yoselin Ruvalcaba, Curt Tabares and colleagues, with an educational salina from [employer]. Thrive Questionnaire Date Thrive assessed: 12/27/23 I am a: Patient What is your living situation today?: I have a steady place to live Within the past 12 months, did the food you bought not last and you didn't have the money to get more?: Never true Within the past 12 months, did you worry whether your food would run out before you got money to buy more?: Never true Do you have trouble paying for medicines?: No Do you have trouble getting transportation to medical appointments?: No Do you have trouble paying your heating and electricity bill?: No Do you have trouble taking care of your child, family member or friend?: No Do you have trouble with day-to-day activities such as bathing, preparing meals, shopping, managing finances, etc.?: No Are you currently unemployed and looking for a job?: No Are you interested in more education?: No THRIVE Score: 0 AUDIT C Alcohol Use Questionnaire (AUDIT-C) 1. How often do you have a drink containing alcohol?: 2-4 times a month 2. How many drinks containing alcohol do you have on a typical day when you are drinking?: 7 to 9 3. How often do you have six or more drinks on one occasion?: Weekly Total Score: 8 PATRICIA-7 AMB Questionnaire PATRICIA-7 Date PATRICIA - 7 assessed: 12/27/23 Feeling nervous, anxious, or on edge: 0 = Not at all Not being able to stop or control worryin = Not at all Worrying too much about different things: 0 = Not at all Trouble relaxin = Not at all Being so restless that it is hard to sit still: 0 = Not at all Becoming easily annoyed or irritable: 0 = Not at all Feeling afraid as if something awful might happen: 0 = Not at all Total PATRICIA-7 score (0-4 normal; 5-9 mild; 10-14 moderate; 15-21 severe): 0 Source: Developed by Drs. Dwight Ferreira, Yoselin Ruvalcaba, Curt Tabares and colleagues, with an educational salina from [employer]. Review of Systems Const Denies chills and Denies fever(s) Eyes Denies blurry vision ENT Denies vertigo, Denies dizziness and Denies sore throat Card Denies chest pain at rest, Denies chest pain with activity, Denies diaphoresis, Denies dyspnea and Denies dyspnea on exertion Resp Denies cough, Denies dyspnea, Denies dyspnea on exertion and Denies wheezing GI Denies abdominal pain, Denies melena, Denies hematochezia, Denies constipation, Denies diarrhea and Denies loose stools Denies hematuria Musc Denies numbness and Denies tingling Skin/Breast Denies lesions Neuro Denies vertigo, Denies dizziness, Denies numbness and Denies tingling Psych Denies anxiety, Denies depression, Denies homicidal ideation, Denies suicidal ideation and Denies other (substance abuse) Aller/Immun Denies wheezing Physical exam (Primary Care) Vital Signs: Last Vital Signs Pulse 89 12/27/23 08:58 BP 150/88 H 12/27/23 08:58 Pulse Ox 99 12/27/23 08:58 Oxygen Delivery Method Room Air 12/27/23 08:58 BMI result Body Mass Index 37.0 Tobacco/Smoking Status: Tobacco use Status Tobacco use date assessed 12/27/23 12/27/23 09:06 Patient Tobacco Use Status Never used Tobacco 12/27/23 09:06 e-Cigarette/Vaping Use Never Used 12/27/23 09:06 Const General: cooperative Nutritional Appearance: obese Orientation/consciousness: patient oriented x3 HENMT Head: Yes normal to inspection, Yes normocephalic and Yes atraumatic Ears: TM's normal bilaterally Eyes General: appearance normal, both eyes and all related structures Alignment and Position: alignment normal and position normal Neck Neck: Yes normal visual inspection and Yes no lymphadenopathy Thyroid: Thyroid normal Resp Effort & Inspection: normal respiratory effort Auscultation: clear to auscultation bilaterally Cardio Rate: regular rate Rhythm: regular rhythm Heart sounds: S1 normal heart sound present, S2 normal heart sound present and no murmurs GI Palpation (GI): Soft to palpation and nontender Auscultation: normal bowel sounds Male General Exam: Yes normal external exam Penis: normal penis Scrotum: scrotum normal, testes descended bilaterally and no inguinal hernias Testes: no testicular mass Skin Rashes: no rashes Neuro General: patient oriented x3, moves all extremities, no focal motor deficits and deep tendon reflexes 2+ bilaterally Romberg Test: Negative Psych Appearance: grossly normal Mental Status: mental status grossly normal Speech and movement: Normal speech and movement present Affect: normal affect Attitude: cooperative Thought process: Normal thought process present Thought content: Normal thought content present Insight: Good insight present (Psych) Judgement: Good judgement present (Psych) Assessment and Plan Assessment & Plan (1) Screening PSA (prostate specific antigen): Code(s): Z12.5 - Encounter for screening for malignant neoplasm of prostate Plan: PSA ordered (2) Benign prostatic hyperplasia with lower urinary tract symptoms: Code(s): N40.1 - Benign prostatic hyperplasia with lower urinary tract symptoms Plan: Referred to urology (3) Encounter for routine adult physical exam with abnormal findings: Code(s): Z00.01 - Encounter for general adult medical examination with abnormal findings (4) HTN (hypertension): Code(s): I10 - Essential (primary) hypertension Plan: starting losartan, pt's is a nurse, and will monitor his BP. They know to call if BP sustains above 140/90 Plan The patient agreed to the use of a medical accountant for this encounter. Scribed for ANANT Quintanilla by Cathi Barkley medical accountant, on 12/27/2023 at 09:15 EST. Orders: Orders Complete Blood Count Auto Diff Today Z00.00 - Encounter for general adult medical examination without abnormal findings Comprehensive [place]. Panel Fast Today Z00.00 - Encounter for general adult medical examination without abnormal findings TSH reflex Free T4 Today Z00.00 - Encounter for general adult medical examination without abnormal findings UA CC w/rflx Micro + Cult Today Z00.00 - Encounter for general adult medical examination without abnormal findings Lipid Panel Today Z00.00 - Encounter for general adult medical examination without abnormal findings Prostate Specific Antigen Scr Today Z12.5 - Encounter for screening for malignant neoplasm of prostate Referrals Gastroenterology Referral Z12.11 - Encounter for screening for malignant neoplasm of colon Urology Referral N40.1 - Benign prostatic hyperplasia with lower urinary tract symptoms Medications: New losartan 25 mg PO DAILY 30 days 30 tabs 2RF Coding Level of Care Code Est Pt Prev Care >65y(76824) Diagnoses Screening PSA (prostate specific antigen) Z12.5 Benign prostatic hyperplasia with lower urinary tract symptoms N40.1 Encounter for routine adult physical exam with abnormal findings Z00.01 HTN (hypertension) I10
== END 2023-12-27 09:42 | disposition home or self-care (01) ==
PROVIDERS: PCP Nurse Practitioner Family; Visit Provider Nurse Practitioner Family
DX: Z00.01 Encounter for general adult medical examination with abnormal findings (principal); I10 Essential (primary) hypertension; Z12.5 Encounter for screening for malignant neoplasm of prostate; N40.1 Benign prostatic hyperplasia with lower urinary tract symptoms
CPT/HCPCS: 99213; 99397

== ENCOUNTER 2024-02-21 08:25 | Outpatient (AMB) | payer MEDICARE, OTHER, SELFPAY ==
[2024-02-21 08:38] VITALS: BP 142/80; PULSE 91; TEMP 36.8; O2SAT 97; BMI 36.9
--- NOTE | 2024-02-21 08:38 | AM.OFFWIN_ITS ---
Intake Vital Signs 02/21/24 08:38 Height 6 ft 1 in Weight 280 lb BMI 36.9 BP 142/80 H Blood Pressure Location Lt brachial Position Sitting Pulse 91 Pulse Source Pulse Oximeter Temp 98.2 F Temp Source Oral Pulse Oximetry (%) 97 Oxygen Delivery Method Room Air Intake Visit Reasons: EP Breathing Diff, Walking Intake Note: pt is here for difficulty breathing with exertion Patient Tobacco Use Status: Never used Tobacco Allergies oxycodone Allergy (Unknown, Verified 03/01/24 14:28) itchy ENVIRONMENTAL Allergy (Unknown, Uncoded 03/01/24 14:28) ITCHY EYES, WHEEZING statins Allergy (Unknown, Uncoded 03/01/24 14:28) hives Tremfya Allergy (Unknown, Uncoded 03/01/24 14:28) secondary rash Medication List - Last Reconciled 03/01/24 by Jermain Lin MD albuterol sulfate 2.5 mg (3 mL) inhalation Q4-6H PRN aspirin (Adult Aspirin Regimen) 81 mg PO DAILY bisacodyl (Dulcolax (bisacodyl)) 20 mg (4 x 5 mg) PO ONCE PRN 1 day ezetimibe 10 mg PO DAILY 90 days losartan 25 mg PO DAILY 30 days omega 5-mza-cpi-fish oil 1,200 (144-216) mg (Fish Oil) caps PO pantoprazole 40 mg PO DAILY 90 days polyethylene glycol 3350 (Miralax) 238 grams PO ONCE PRN 1 day Do you need a note to return to daycare/school/sports/work: No HPI EP Breathing Diff, Walking HPI Details 68-year-old male presents to the office for a sick visit. Patient came down with COVID 5 weeks ago. He got a prescription for Paxlovid. His symptoms subsided. Two weeks later, patient reports he choked on a piece of food. Subsequently his cough has worsened with shortness of breath. He has been using the nebulizer 4 times a day. No fever or chills. Main symptom is the shortness of breath. [facility] Medical History (Updated 02/29/24 @ 08:17 by Emily Hernandez PA-C) Mild ascending aorta dilatation Psoriatic arthritis Balanitis Gross hematuria Feeling of incomplete bladder emptying Benign prostatic hyperplasia with lower urinary tract symptoms Nocturia Asthma GERD (gastroesophageal reflux disease) Surgical History History of surgery History of prostate surgery H/O umbilical hernia repair Family History Father Diabetes Hypertension Cancer Mother Hypertension Cancer Social History Housing: House Patient Tobacco Use Status: Never used Tobacco e-Cigarette/Vaping Use: Never Used Second Hand Smoke Exposure: No Current occupational status: 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 Cognitive needs: No Hearing needs: No Vision needs: No Physical Exam Vital Signs: Last Vital Signs Temp 98.2 F 02/21/24 08:38 Pulse 91 02/21/24 08:38 BP 142/80 H 02/21/24 08:38 Pulse Ox 97 02/21/24 08:38 Oxygen Delivery Method Room Air 02/21/24 08:38 BMI result Body Mass Index 36.9 Const General: cooperative and healthy appearing Nutritional Appearance: well nourished Orientation/consciousness: patient oriented x3 Limitations: no limitations HEENT Head: Yes normal to inspection Eyes General: appearance normal, both eyes and all related structures Neck Neck: Yes normal visual inspection Chest Chest palpation & inspection: normal palpation of entire chest wall Resp Other: Basilar crackles, right lower base. Effort & Inspection: normal respiratory effort Neuro General: patient oriented x3 Assessment & Plan Assessment & Plan (1) Upper respiratory tract infection: Code(s): J06.9 - Acute upper respiratory infection, unspecified Plan: Antibiotics ordered. Increase fluid intake. Tylenol for aches and pains. If symptoms worsen, follow-up here for a recheck. X-ray images were personally reviewed by me. No infiltrate seen. Orders: Orders XR chest 2V 02/21/24 R05.9 - Cough, unspecified Medications: Changed From azithromycin For 250 mg dose pack: take 500 mg today (day 1), then 250 mg for 4 days (days 2-5) PO 5 days 6 tabs 0RF To azithromycin For 250 mg dose pack: take 500 mg today (day 1), then 250 mg for 4 days (days 2-5) PO 6 tabs 0RF 5 days Refilled albuterol sulfate 2.5 mg (3 mL) inhalation Q4-6H PRN 75 mL 0RF shortness of michael ath or wheezing J45.909 - Unspecified asthma, uncomplicated prednisone 50 mg PO DAILY 5 tabs 0RF 5 days Discontinued bempedoic acid-ezetimibe 180-10 mg Discontinued Reason: Insurance Denied 1 tab PO DAILY 90 tabs 0RF ezetimibe Discontinued Reason: Duplicate 10 mg PO DAILY 90 tabs 0RF Coding Level of Care Code Est Pt Level 4 (60809) Diagnoses Upper respiratory tract infection J06.9
== END 2024-02-21 10:17 | disposition home or self-care (01) ==
PROVIDERS: PCP Nurse Practitioner Family; Visit Provider Internal Medicine
DX: J06.9 Acute upper respiratory infection, unspecified (principal)
CPT/HCPCS: 99214

== ENCOUNTER 2024-02-21 08:54 | Outpatient (REF) | payer MEDICARE, OTHER, SELFPAY ==
--- NOTE | ~2024-02-21 | XR_ITS ---
EXAMINATION: XR CHEST CLINICAL INFORMATION: Cough unspecified COMPARISON: Chest radiograph from 08/24/2023 TECHNIQUE: 2 views of the chest were obtained. FINDINGS: Stable elevation the right hemidiaphragm. No pneumothorax. Trachea is midline. Cardiac mediastinal silhouette is not enlarged. No large pleural effusion. Flowing anterior osteophytes of the thoracolumbar spine. Soft tissues are unremarkable. XR/XR chest 2V IMPRESSION: No acute cardiopulmonary process.
[2024-02-21 11:16] LABS: Appearance Urine Clear; Color Urine Yellow; Glucose Urine UA Negative (Negative); Leukocyte Esterase Urine Negative (Negative); Nitrite Urine Negative (Negative); PH 5.5 (5.0-9.0); Specific Gravity - Urine 1.025 (1.005-1.025); Urine Blood Negative (Negative); Urine Ketones Negative (Negative); Urine Protein Negative (Neg-Trace)
[2024-02-21 11:20] LABS: MANUAL DIFF FLAG NO
[2024-02-21 11:25] LABS: Basophils Absolute Auto 0.1 X10*3/uL (0.0-0.2); Basophils Percent Auto 0.9 % (0-2); Eosinophils Absolute Auto 0.3 X10*3/uL (0.0-0.4); Eosinophils Percent Auto 5.3 % (0-4); Hematocrit 42.1 % (42.0-52.0); Hemoglobin 14.2 g/dl (14.0-18.0); Imm Gran Abs Auto 0.01 X10*3/uL (0.00-0.03); Imm Gran Pct Auto 0.2 % (0.0-0.4); Lymphocytes Absolute Auto 1.4 X10*3/uL (1.2-4.9); Lymphocytes Percent Auto 24.9 % (20-40); Mean Corpuscular HGB Conc 33.7 g/dl (31.0-36.0); Mean Corpuscular Hemoglobin 29.3 pg (27.0-33.0); Mean Corpuscular Volume 86.8 fL (80.0-98.0); Mean Platelet Volume 9.4 fL (9.4-12.4); Monocytes Absolute Auto 0.6 X10*3/uL (0.1-1.2); Monocytes Percent Auto 10.2 % (2-11); Neutrophils Absolute Auto 3.3 x10*3/uL (2.0-8.3); Neutrophils Percent Auto 58.5 % (45-73); Platelet Count 242 X10*3/uL (160-400); Red Blood Count 4.85 X10*6/uL (4.60-5.80); Red Cell Distribution Width 13.1 % (11.0-16.0); White Blood Count 5.7 X10*3/uL (4.8-10.8)
[2024-02-21 13:13] LABS: Prostate Specific Antigen Scr 0.72 ng/mL (<0.05-4.0)
[2024-02-21 13:59] LABS: Alanine Aminotransferase 46 U/L (0-40); Albumin Level 4.7 g/dL (3.5-5.0); Alkaline Phosphatase 78 U/L (39-117); Anion Gap 12 (12-20); Aspartate Amino Transferase 26 U/L (5-37); Bilirubin Total 0.4 mg/dL (0.0-1.0); Blood Urea Nitrogen 20 mg/dL (9-16); Calcium 9.7 mg/dL (8.4-10.2); Carbon Dioxide 27 mmol/L (22-29); Chloride 108 mmol/L (96-108); Cholesterol 217 mg/dL (<200); Estimated Glomerular Filt Rate 58; Glucose Fasting 109 mg/dL (60-99); HDL Cholesterol 54 mg/dL (>40); LDL Cholesterol Calculated 122 mg/dL (<100); Potassium 4.9 mmol/L (3.3-5.1); Sodium 142 mmol/L (135-145); Total Protein 7.6 g/dL (6.5-8.0); Triglycerides 208 mg/dL (<150)
[2024-02-21 14:19] LABS: TSH reflex Free T4 1.07 uIU/mL (0.32-4.0)
== END 2024-02-21 08:55 | disposition home or self-care (01) ==
LOC: HO.HMGCX 08:54
PROVIDERS: PCP Nurse Practitioner Family; Referring Provider Internal Medicine; Visit Provider Nurse Practitioner Family
DX: Z00.00 Encounter for general adult medical examination without abnormal findings (principal); R05.9 Cough, unspecified; Z12.5 Encounter for screening for malignant neoplasm of prostate
CPT/HCPCS: 36415; 71046; 80053; 80061; 81003; 84153; 84443; 85025

== ENCOUNTER → 2024-02-29 07:23 | Outpatient (BNVA) | payer MEDICARE, OTHER, SELFPAY | PROVIDERS: PCP Nurse Practitioner Family; Visit Provider Physician Assistant ==

== ENCOUNTER 2024-04-13 09:21 | Outpatient (AMB) | payer MEDICARE, OTHER, SELFPAY ==
--- NOTE | 2024-04-13 09:27 | MHC.PC.OV ---
Vital Signs 04/13/24 09:29 Height 6 ft 1 in Weight 279 lb BMI 36.8 BP 136/98 H Blood Pressure Location Lt brachial Position Sitting Pulse 91 Pulse Source Pulse Oximeter Pulse Oximetry (%) 98 Oxygen Delivery Method Room Air Intake Visit Reasons: 4M F/U Intake Note: Patient here for follow up on HTN and would like to talk about a possible UTI that has been present for about 3 weeks, pain when urinating,chills, inflammation. Allergies oxycodone Allergy (Unknown, Verified 04/13/24 10:17) itchy ENVIRONMENTAL Allergy (Unknown, Uncoded 04/13/24 10:17) ITCHY EYES, WHEEZING statins Allergy (Unknown, Uncoded 04/13/24 10:17) hives Tremfya Allergy (Unknown, Uncoded 04/13/24 10:17) secondary rash Medication List - Last Reconciled 04/13/24 by ANANT Wallace albuterol sulfate 2.5 mg (3 mL) inhalation Q4-6H PRN aspirin (Adult Aspirin Regimen) 81 mg PO DAILY bisacodyl (Dulcolax (bisacodyl)) 20 mg (4 x 5 mg) PO ONCE PRN 1 day ezetimibe 10 mg PO DAILY 90 days losartan 50 mg PO DAILY 30 days omega 0-mkf-ixq-fish oil 1,200 (144-216) mg (Fish Oil) caps PO pantoprazole 40 mg PO DAILY 90 days polyethylene glycol 3350 (Miralax) 238 grams PO ONCE PRN 1 day Tobacco use date assessed: 12/27/23 Fall risk assessment: No Falls in past year Last assessed Fall Risk: 04/13/24 Dental Screening Dental Screen Date: 12/27/23 HPI 4M F/U HPI Details HTN: Blood pressure is managed with losartan 25mg. BP is elevated today. His BPs at home are more stable, though some are slightly elevated. Will increase losartan from 25mg to 50mg. Denies chest pain, shortness of breath, headache, dizziness, and blurred vision. Pt has started a walking routine, up to 6 miles a day. [facility] Medical History Mild ascending aorta dilatation Psoriatic arthritis Balanitis Gross hematuria Feeling of incomplete bladder emptying Benign prostatic hyperplasia with lower urinary tract symptoms Nocturia Asthma GERD (gastroesophageal reflux disease) Surgical History History of surgery History of prostate surgery H/O umbilical hernia repair Family History Father Diabetes Hypertension Cancer Mother Hypertension Cancer Social History Housing: House Patient Tobacco Use Status: Never used Tobacco e-Cigarette/Vaping Use: Never Used Second Hand Smoke Exposure: No Current occupational status: 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 07540 - PHQ-9 Billing: Patient declined-do not bill Source: Developed by Drs. Dwight Ferreira, Curt Mayen and colleagues, with an educational salina from [employer]. Thrive Questionnaire Date Thrive assessed: 12/27/23 PATRICIA-7 AMB Questionnaire PATRICIA-7 Date PATRICIA - 7 assessed: 12/27/23 Source: Developed by Drs. Dwight Ferreira, Yoselin Ruvalcaba, Curt Tabares and colleagues, with an educational salina from [employer]. PATRICIA-7 Assessment Billing PATRICIA-7 Assessment Tool: pt declined-do not bill Review of Systems Const Reports as per HPI Physical exam (Primary Care) Vital Signs: Last Vital Signs Pulse 91 04/13/24 09:29 BP 136/98 H 04/13/24 09:29 Pulse Ox 98 04/13/24 09:29 Oxygen Delivery Method Room Air 04/13/24 09:29 BMI result Body Mass Index 36.8 Tobacco/Smoking Status: Tobacco use Status Tobacco use date assessed 12/27/23 04/13/24 09:29 Patient Tobacco Use Status Never used Tobacco 04/13/24 09:29 e-Cigarette/Vaping Use Never Used 04/13/24 09:29 Thrive Assessment: Date of Thrive Assessment Date Thrive assessed 12/27/23 04/13/24 09:29 Const General: cooperative Nutritional Appearance: obese Orientation/consciousness: patient oriented x3 Neuro General: patient oriented x3 Psych Appearance: grossly normal Mental Status: mental status grossly normal Speech and movement: Normal speech and movement present Affect: normal affect Attitude: cooperative Thought process: Normal thought process present Thought content: Normal thought content present Insight: Good insight present (Psych) Judgement: Good judgement present (Psych) Results AMB Urinalysis, Automated UA Leukoctes 0 Megha/uL Last Edit by Saima Ferrer [facility] on 04/13/24 09:49 UA Nitrite Negative Last Edit by Saima Ferrer [facility] on 04/13/24 09:49 UA Urobilinogen 0.2 mg/dL Last Edit by Saima Ferrer [facility] on 04/13/24 09:49 UA Protein 0 mg/dL Last Edit by Saima Ferrer [facility] on 04/13/24 09:49 UA pH 6.0 Last Edit by Saima Ferrer [facility] on 04/13/24 09:49 UA Blood 0 Lamine/uL Last Edit by Saima Ferrer [facility] on 04/13/24 09:49 UA Specific Effie 1.015 Last Edit by RamilaJuan Ferrer [facility] on 04/13/24 09:49 UA Ketone Negative Last Edit by Saima Ferrer [facility] on 04/13/24 09:49 UA Bilirubin 0 mg/dL Last Edit by RamilaJuan Ferrer [facility] on 04/13/24 09:49 UA Glucose 0 mg/dL Last Edit by RamilaJuan Ferrer [facility] on 04/13/24 09:49 Assessment and Plan Assessment & Plan (1) HTN (hypertension): Code(s): I10 - Essential (primary) hypertension Plan: Increasing losartan from 25mg to 50mg Plan The patient agreed to the use of a emergency medical tech for this encounter. Scribed for ANANT Quintanilla by Cathi Barkley emergency medical tech, on 04/13/2024 at 09:45 EST. Orders: Orders Comprehensive [place]. Panel Fast Today I10 - Essential (primary) hypertension AMB Urinalysis Automated Today Z13.9 - Encounter for screening, unspecified Complete Blood Count Auto Diff Today I10 - Essential (primary) hypertension TSH reflex Free T4 Today I10 - Essential (primary) hypertension UA CC w/rflx Micro + Cult Today I10 - Essential (primary) hypertension Lipid Panel Today I10 - Essential (primary) hypertension Medications: New mupirocin 2% 1 appl topical DAILY 50 grams 0RF Changed From losartan 25 mg PO DAILY 30 days 30 tabs 2RF To losartan 50 mg PO DAILY 30 days 30 tabs 2RF Coding Level of Care Code Est Pt Level 3 (04666) Diagnoses HTN (hypertension) I10
[2024-04-13 09:29] VITALS: BP 136/98; PULSE 91; O2SAT 98; BMI 36.8
== END 2024-04-13 09:58 | disposition home or self-care (01) ==
PROVIDERS: PCP Nurse Practitioner Family; Visit Provider Nurse Practitioner Family
DX: Z13.9 Encounter for screening, unspecified (principal); I10 Essential (primary) hypertension
CPT/HCPCS: 81003; 99213

== ENCOUNTER 2024-04-17 08:20 | Outpatient (REF) | payer MEDICARE, OTHER, SELFPAY ==
[2024-04-17 10:25] LABS: MANUAL DIFF FLAG NO
[2024-04-17 10:38] LABS: Appearance Urine Clear; Color Urine Yellow; Glucose Urine UA Negative (Negative); Leukocyte Esterase Urine Negative (Negative); Nitrite Urine Negative (Negative); PH 5.5 (5.0-9.0); Urine Blood Negative (Negative); Urine Ketones Negative (Negative); Urine Protein Negative (Neg-Trace)
[2024-04-17 10:39] LABS: Basophils Absolute Auto 0.1 X10*3/uL (0.0-0.2); Basophils Percent Auto 1.2 % (0-2); Eosinophils Absolute Auto 0.3 X10*3/uL (0.0-0.4); Eosinophils Percent Auto 5.4 % (0-4); Hematocrit 41.3 % (42.0-52.0); Hemoglobin 13.9 g/dl (14.0-18.0); Imm Gran Abs Auto 0.01 X10*3/uL (0.00-0.03); Imm Gran Pct Auto 0.2 % (0.0-0.4); Lymphocytes Absolute Auto 1.7 X10*3/uL (1.2-4.9); Lymphocytes Percent Auto 35.7 % (20-40); Mean Corpuscular HGB Conc 33.7 g/dl (31.0-36.0); Mean Corpuscular Hemoglobin 29.3 pg (27.0-33.0); Mean Corpuscular Volume 87.1 fL (80.0-98.0); Mean Platelet Volume 9.6 fL (9.4-12.4); Monocytes Absolute Auto 0.6 X10*3/uL (0.1-1.2); Monocytes Percent Auto 11.8 % (2-11); Neutrophils Absolute Auto 2.2 x10*3/uL (2.0-8.3); Neutrophils Percent Auto 45.7 % (45-73); Platelet Count 198 X10*3/uL (160-400); Red Blood Count 4.74 X10*6/uL (4.60-5.80); Red Cell Distribution Width 12.6 % (11.0-16.0); White Blood Count 4.9 X10*3/uL (4.8-10.8)
[2024-04-17 11:10] LABS: Alanine Aminotransferase 36 U/L (0-40); Albumin Level 4.5 g/dL (3.5-5.0); Alkaline Phosphatase 76 U/L (39-117); Anion Gap 15 (12-20); Aspartate Amino Transferase 26 U/L (5-37); Bilirubin Total 0.4 mg/dL (0.0-1.0); Blood Urea Nitrogen 19 mg/dL (9-16); Calcium 9.5 mg/dL (8.4-10.2); Carbon Dioxide 24 mmol/L (22-29); Chloride 106 mmol/L (96-108); Cholesterol 210 mg/dL (<200); Estimated Glomerular Filt Rate 56; Glucose Fasting 113 mg/dL (60-99); HDL Cholesterol 47 mg/dL (>40); LDL Cholesterol Calculated 129 mg/dL (<100); Potassium 4.3 mmol/L (3.3-5.1); Sodium 141 mmol/L (135-145); Total Protein 7.3 g/dL (6.5-8.0); Triglycerides 171 mg/dL (<150)
[2024-04-17 11:12] LABS: TSH reflex Free T4 1.36 uIU/mL (0.32-4.0)
[2024-04-20 08:04] LABS: TS Negative Control Passed; TS Panel A 0; TS Panel B 3; TS Positive Control Passed; TSpotTB Negative (Negative)
== END 2024-04-17 08:21 | disposition home or self-care (01) ==
LOC: HO.HMGCLDS 08:20
PROVIDERS: PCP Nurse Practitioner Family; Referring Provider Physician Assistant Medical; Visit Provider Nurse Practitioner Family
DX: I10 Essential (primary) hypertension (principal); L40.0 Psoriasis vulgaris; L40.59 Other psoriatic arthropathy; D48.5 Neoplasm of uncertain behavior of skin; Z79.899 Other long term (current) drug therapy
CPT/HCPCS: 36415; 80053; 80061; 81003; 84443; 85025; 86481

== ENCOUNTER 2024-06-28 07:13 | Day surgery (SDC) | payer MEDICARE, OTHER, SELFPAY ==
[2024-06-26 13:30] VITALS: BMI 36.9
--- NOTE | 2024-06-26 14:28 | P.CONAN_ITS ---
Documented by User: Ary Hi NP 06/26/24 14:29 HPI - Anesthesia Eval Consult details Narrative: 69yo M for Colonoscopy PMFSH Active Problems Active Problems: All Active Problems History of adenomatous polyp of colon (Acute) GERD (gastroesophageal reflux disease) (Acute) Encounter for routine adult physical exam with abnormal findings (Acute) Physical exam (Acute) Visit for suture removal (Acute) Suture check (Acute) Cellulitis (Acute) Fatty liver (Acute) Arthritis of carpometacarpal (CMC) joint of right thumb (Acute) Acute bronchitis (Acute) Osteoarthritis of thumb (Acute) Elevated liver enzymes (Acute) Obesity (Acute) Pain of right thumb (Acute) Screening for colon cancer (Acute) Upper respiratory tract infection (Acute) Asthma (Acute) Nocturia (Acute) Benign prostatic hyperplasia with lower urinary tract symptoms (Acute) Dyslipidemia (Acute) SOB (shortness of breath) (Acute) Left hip pain (Acute) Screening PSA (prostate specific antigen) (Acute) HTN (hypertension) (Acute) Balanitis (Acute) Chronic UTI (urinary tract infection) (Acute) Obstructive sleep apnea (Acute) Past Medical History Medical History Mild ascending aorta dilatation Psoriatic arthritis Balanitis Gross hematuria Feeling of incomplete bladder emptying Benign prostatic hyperplasia with lower urinary tract symptoms Nocturia Asthma GERD (gastroesophageal reflux disease) Family History Family History Father Diabetes Hypertension Cancer Mother Hypertension Cancer Surgical History Surgical History History of surgery History of prostate surgery H/O umbilical hernia repair Social History Social History Housing: House Patient Tobacco Use Status: Never used Tobacco e-Cigarette/Vaping Use: Never Used Second Hand Smoke Exposure: No Use of substances other than those prescribed or required for medical reasons: No Are you DNR?: No Advance Directives: No Advance Directives Information Provided: Yes Current occupational status: 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 Cognitive needs: No Hearing needs: No Vision needs: No Meds Allergies Allergy/AdvReac Type Severity Reaction Status Date / Time oxycodone Allergy Unknown itchy Verified 06/28/24 07:41 ENVIRONMENTAL Allergy Unknown ITCHY Uncoded 06/28/24 07:41 EYES, WHEEZING statins Allergy Unknown hives Uncoded 06/28/24 07:41 Tremfya Allergy Unknown secondary Uncoded 06/28/24 07:41 rash Home Medications ?Medication ?Instructions ?Recorded ?Confirmed ?Last Taken ?Type aspirin 81 mg tablet,delayed 81 mg PO DAILY 03/31/21 06/28/24 Unknown History release (Adult Aspirin Regimen) omega 8-lee-obd-fish oil 1,200 mg 1 cap PO DAILY 02/29/24 06/28/24 06/21/24 History (144 mg-216 mg) capsule (Fish Oil) risankizumab-rzaa 150 mg/mL See Rx Instructions .Route .COMPLEX 06/28/24 06/28/24 Unknown History subcutaneous pen injector (Skyrizi) Exam Height,Weight and Vital Signs: Height 6 ft 1 in Weight 127.006 kg Pertinent Lab Results Pertinent Lab Results: Laboratory Tests 04/17/24 08:34 WBC 4.9 Hgb 13.9 L Hct 41.3 L Plt Count 198 Sodium 141 Potassium 4.3 Chloride 106 Carbon Dioxide 24 BUN 19 H Creatinine 1.27 Narrative Narrative: ECHO 2022 Conclusions: - 1. Normal LV ejection fraction of 65-70% with mild LVH with grade 1 diastolic dysfunction 2. Mild aortic regurgitation 3. Mildly dilated ascending aorta at 3.8 cm 4. No gross pericardial effusion Assessment and Plan Assessment Anesthesia Assessment: Chart Reviewed Documented by User: Deidra Landeros MD 06/28/24 08:32 [facility] Past Medical History Medical History Mild ascending aorta dilatation Psoriatic arthritis Balanitis Gross hematuria Feeling of incomplete bladder emptying Benign prostatic hyperplasia with lower urinary tract symptoms Nocturia Asthma GERD (gastroesophageal reflux disease) Family History Family History Father Diabetes Hypertension Cancer Mother Hypertension Cancer Family history of problems with anesthesia: No Surgical History Surgical History History of surgery History of prostate surgery H/O umbilical hernia repair History of Problems with Anesthesia: No Social History Social History Housing: House Patient Tobacco Use Status: Never used Tobacco e-Cigarette/Vaping Use: Never Used Second Hand Smoke Exposure: No Use of substances other than those prescribed or required for medical reasons: No Are you DNR?: No Advance Directives: No Advance Directives Information Provided: Yes Current occupational status: 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 Cognitive needs: No Hearing needs: No Vision needs: No Meds Allergies Allergy/AdvReac Type Severity Reaction Status Date / Time oxycodone Allergy Unknown itchy Verified 06/28/24 07:41 ENVIRONMENTAL Allergy Unknown ITCHY Uncoded 06/28/24 07:41 EYES, WHEEZING statins Allergy Unknown hives Uncoded 06/28/24 07:41 Tremfya Allergy Unknown secondary Uncoded 06/28/24 07:41 rash Home Medications ?Medication ?Instructions ?Recorded ?Confirmed ?Last Taken ?Type aspirin 81 mg tablet,delayed 81 mg PO DAILY 03/31/21 06/28/24 Unknown History release (Adult Aspirin Regimen) omega 9-vtc-fza-fish oil 1,200 mg 1 cap PO DAILY 02/29/24 06/28/24 06/21/24 History (144 mg-216 mg) capsule (Fish Oil) risankizumab-rzaa 150 mg/mL See Rx Instructions .Route .COMPLEX 06/28/24 06/28/24 Unknown History subcutaneous pen injector (Skyrizi) Exam Airway Mallampati Class: II TM Dist: >3cm Neck ROM: Full Heart: rrr Lungs: cta Assessment and Plan Assessment Anesthesia Assessment: Anesthesia Plan Discussed Final Anesthetic Review Family History of Problems with Anesthesia: No History of Problems with Anesthesia: No NPO: Yes ASA Class: III Final Preanesthetic Review: No Changes in Pt Med Stat, Meds/Allgs Chart Reviewed, Consent Obtained/Reviewed and Anes Risks/Benef Reviewed Patient Risk: Intermediate Procedure Risk: Low Anesthetic Plan Anesthetic Plan: MAC: Disposition: Standard PACU
[2024-06-28 08:00] VITALS: BP 152/77; PULSE 92; RESP 14; TEMP 36.6; O2SAT 98
[2024-06-28] MEDS: Lactated Ringers 1,000 ML 100 ML IVCONT (08:11)
--- NOTE | 2024-06-28 08:24 | MHC.SHP ---
Pre-Procedural Eval Section A - 24 Hr Update-Section A only Date of Service: 06/28/24 Section B - Complete if H&P > 30 days Chief Complaint: Personal history of colonic polyps Relevant Family History (Specify if Yes): No Relevant Social History: None Present Medications: see Short Stay Collaborative assessment Medical History: Significant History (Mild ascending aorta dilatation Psoriatic arthritis Balanitis Gross hematuria Feeling of incomplete bladder emptying Benign prostatic hyperplasia with lower urinary tract symptoms Nocturia Asthma GERD (gastroesophageal reflux disease)) History of Previous Operations: Relevant previous surgery/procedure and date(s) (History of surgery History of prostate surgery H/O umbilical hernia repair) Allergies: Allergies Allergy/AdvReac Type Severity Reaction Status Date / Time oxycodone Allergy Unknown itchy Verified 06/28/24 07:41 ENVIRONMENTAL Allergy Unknown ITCHY Uncoded 06/28/24 07:41 EYES, WHEEZING statins Allergy Unknown hives Uncoded 06/28/24 07:41 Tremfya Allergy Unknown secondary Uncoded 06/28/24 07:41 rash Review of Systems Sugical H&P ROS: Negative: Constitution, Cardiovascular, Respiratory, Neurological, Psychiatric, Hem-Onc, Allergic/Immunologic, Gastrointestinal, Genitourinary, Musculoskeletal, Integumentary, Endocrine and Eyes/Ears/Nose/Throat Exam Surgical H&P Exam: Normal: HEENT, Normal: Heart, Normal: Lungs, Normal: Extremities, Normal: Abdomen, Normal: Skin and Normal: Neurological Plan Diagnosis/Plan: Unchanged I have reviewed the history and physical and performed a pertinent physical examination on my patient. No changes have occurred unless specified. Time Spent With Patient Time: Total time managing care of this patient today ____ minutes.
--- NOTE | 2024-06-28 08:25 | HO.OPN-COLON ---
Colonoscopy Operative Note Operative Note Date of Service: 06/28/24 Narrative: Operative Information Procedure Description: Colonoscopy Indication: screening, hx of colonic polyps Anesthesia: MAC COLONOSCOPY Instrument: Olympus variable stiffness ADULT scope 190L Colonoscopy Monitoring: Vital signs and clinical assessment, continuous EKG monitoring, Pulse oximetry, Carbon Dioxide monitoring and blood pressure monitoring were done throughout the procedure. Colon withdrawal time was 12 minutes. Procedure: The patient was placed in the left lateral decubitis position and pre-procedure medications were administered. After a digital rectal examination of the ano-rectum, the video colonoscope was inserted into the rectum and advanced through the colon to the cecum/TI. The colonoscope was slowly withdrawn in a retrograde panoramic fashion and the colon mucosa was carefully examined including a retroflexed view of the rectum. Findings and interventions are described below. Procedure Difficulty: easy Findings: Terminal Ileum-normal Cecum:normal Right sided retroflexion- normal Ascending Colon: moderate diverticulosis Transverse Colon -normal Descending Colon:normal Sigmoid Colon: moderate diverticulosis Rectum: Retroflexion with medium internal hemorrhoids seen, grade I-- 6-8 mm sessile polyp removed with cold snare Anorectum - normal Intervention: cold snare Colon preparation: [place] Bowel Preparation Scale Right colon; 3 Transverse colon: 3 Left colon; 3 (0 = Unprepared colon segment with mucosa not seen due to solid stool that cannot be cleared. 1 = Portion of mucosa of the colon segment seen, but other areas of the colon segment not well seen due to staining, residual stool and/or opaque liquid. 2 = Minor amount of residual staining, small fragments of stool and/or opaque liquid, but mucosa of colon segment seen well. 3 = Entire mucosa of colon segment seen well with no residual staining, small fragments of stool or opaque liquid) Impression and Post Procedure Diagnosis: diverticulosis colon polyp internal hemorrhoids Plan: High fiber diet leaflet Avoid straining at stool, epsom salts and sitz bath, anusol supps or cream Repeat Colonoscopy in 5-7 years due to polyp and prior hx of unknown type of polyps or earlier if clinically indicated Above findings were reviewed with the patient and relevant handouts were provided if indicated.
[2024-06-28 08:57] VITALS: BP 114/64; PULSE 85; RESP 16; TEMP 36.1; O2SAT 94
[2024-06-28 09:12] VITALS: BP 126/82; PULSE 81; RESP 16; TEMP 36.1; O2SAT 95
== END 2024-06-28 09:28 | disposition home or self-care (01) ==
PROVIDERS: PCP Nurse Practitioner Family; Visit Provider Internal Medicine Gastroenterology
PROC: 0DJD8ZZ Inspection of Lower Intestinal Tract, Via Natural or Artificial Opening Endoscopic (ICD-10-PCS; CPT 45378; principal; 2024-06-28 08:30)
DX: Z12.11 Encounter for screening for malignant neoplasm of colon (principal); Z86.010 Personal history of colon polyps; K63.5 Polyp of colon; K57.30 Diverticulosis of large intestine without perforation or abscess without bleeding; K64.0 First degree hemorrhoids; K21.9 Gastro-esophageal reflux disease without esophagitis; N40.1 Benign prostatic hyperplasia with lower urinary tract symptoms; R35.1 Nocturia; R39.14 Feeling of incomplete bladder emptying; N48.1 Balanitis; L40.50 Arthropathic psoriasis, unspecified; I77.819 Aortic ectasia, unspecified site; J45.909 Unspecified asthma, uncomplicated; Z79.82 Long term (current) use of aspirin; Z79.899 Other long term (current) drug therapy; Z98.890 Other specified postprocedural states; Z88.8 Allergy status to other drugs, medicaments and biological substances
CPT/HCPCS: 45385; 88305; J2704

== ENCOUNTER → 2024-06-28 07:13 | Outpatient (BNV) | payer MEDICARE, OTHER, SELFPAY | PROVIDERS: PCP Nurse Practitioner Family; Visit Provider Internal Medicine Gastroenterology | DX: Z12.11 Encounter for screening for malignant neoplasm of colon (principal); Z86.010 Personal history of colon polyps; K63.5 Polyp of colon; K57.90 Diverticulosis of intestine, part unspecified, without perforation or abscess without bleeding | CPT/HCPCS: 45385 ==

== ENCOUNTER 2024-08-15 10:01 | Outpatient (AMB) | payer MEDICARE, OTHER, SELFPAY ==
[2024-08-15 10:06] VITALS: BP 132/80; PULSE 92; O2SAT 98; BMI 36.4
--- NOTE | 2024-08-15 10:06 | A.OFFPC_ITS ---
Vital Signs 08/15/24 10:06 Height 6 ft 1 in Weight 276 lb BMI 36.4 BP 132/80 Blood Pressure Location Rt brachial Position Sitting Pulse 92 Pulse Source Pulse Oximeter Pulse Oximetry (%) 98 Intake Visit Reasons: 4 month follow up Intake Note: pt is here for 4 mon f/u Accompanied by: Self / Same As Patient Allergies oxycodone Allergy (Unknown, Verified 08/15/24 10:11) itchy ENVIRONMENTAL Allergy (Unknown, Uncoded 06/28/24 07:41) ITCHY EYES, WHEEZING statins Allergy (Unknown, Uncoded 06/28/24 07:41) hives Tremfya Allergy (Unknown, Uncoded 06/28/24 07:41) secondary rash Tobacco use date assessed: 12/27/23 Fall risk assessment: No Falls in past year Last assessed Fall Risk: 08/15/24 Dental Screening Dental Screen Date: 12/27/23 HPI 4 month follow up HPI Details HTN: Blood pressure is stable, managed with losartan 50mg. Pt reports that his blood pressure at home is stable as well. Denies chest pain, headache, dizziness, and blurred vision. Pt reports having COVID approximately 6 months ago. Since then he has had increased shortness of breath. Pt reports that this is worse with physical activity and he has had to stop his walking routine. Will order labs, echo, stress test, CT, and PFT testing to r/o any underlying pathology. EKG in office today showed normal sinus rhythm. [facility] Medical History Mild ascending aorta dilatation Psoriatic arthritis Balanitis Gross hematuria Feeling of incomplete bladder emptying Benign prostatic hyperplasia with lower urinary tract symptoms Nocturia Asthma GERD (gastroesophageal reflux disease) Surgical History History of surgery History of prostate surgery H/O umbilical hernia repair Family History Father Diabetes Hypertension Cancer Mother Hypertension Cancer Social History Housing: House Patient Tobacco Use Status: Never used Tobacco e-Cigarette/Vaping Use: Never Used Second Hand Smoke Exposure: No Current occupational status: 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 1. Little interest or pleasure in doing things: not at all 2. Feeling down, depressed, or hopeless: not at all 3. Trouble falling or staying asleep, or sleeping too much: several days 4. Feeling tired or having little energy: several days 5. Poor appetite or overeating: several days 6. Feeling bad about yourself - or that you are a failure or have let yourself or your family down: not at all 7. Trouble concentrating on things, such as reading the newspaper or watching television: not at all 8. Moving or speaking so slowly that other people could have noticed. Or the opposite - being so fidgety or restless that you have been moving around a lot more than usual: not at all 9. Thoughts that you would be better off or of hurting yourself in some way: not at all Total score: 3 Depression Screening Interpretation: Negative Depression Screening Done: Yes 81889 - PHQ-9 Billing: Yes Source: Developed by Drs. Dwight Ferreira, Yoselin Ruvalcaba, Curt Tabares and colleagues, with an educational salina from [email or web address]. Thrive Questionnaire Date Thrive assessed: 08/15/24 I am a: Patient What is your living situation today?: I have a steady place to live Within the past 12 months, did the food you bought not last and you didn't have the money to get more?: Never true Within the past 12 months, did you worry whether your food would run out before you got money to buy more?: Never true Do you have trouble paying for medicines?: No Do you have trouble getting transportation to medical appointments?: No Do you have trouble paying your heating and electricity bill?: No Do you have trouble taking care of your child, family member or friend?: No Do you have trouble with day-to-day activities such as bathing, preparing meals, shopping, managing finances, etc.?: No Are you currently unemployed and looking for a job?: No Are you interested in more education?: No Please select the resources that you would like help with: None Currently or been in a relationship where the following occur: No concerns reported THRIVE Score: 0 AUDIT C Alcohol Use Questionnaire (AUDIT-C) 1. How often do you have a drink containing alcohol?: 2-4 times a month 2. How many drinks containing alcohol do you have on a typical day when you are drinking?: 5 or 6 3. How often do you have six or more drinks on one occasion?: Less than monthly Total Score: 5 Score Reviewed/Action Taken: Yes PATRICIA-7 AMB Questionnaire PATRICIA-7 Date PATRICIA - 7 assessed: 08/15/24 Feeling nervous, anxious, or on edge: 0 = Not at all Not being able to stop or control worryin = Not at all Worrying too much about different things: 0 = Not at all Trouble relaxin = Several days Being so restless that it is hard to sit still: 0 = Not at all Becoming easily annoyed or irritable: 0 = Not at all Feeling afraid as if something awful might happen: 0 = Not at all Total PATRICIA-7 score (0-4 normal; 5-9 mild; 10-14 moderate; 15-21 severe): 1 Source: Developed by Drs. Dwight Ferreira, Yoselin Ruvalcaba, Curt Tabares and colleagues, with an educational salina from [email or web address]. PATRICIA-7 Assessment Billing PATRICIA-7 Assessment Tool: PATRICIA-7 Assessment 92251 Review of Systems Const Reports as per HPI Physical exam (Primary Care) Vital Signs: Last Vital Signs Pulse 92 08/15/24 10:06 BP 132/80 08/15/24 10:06 Pulse Ox 98 08/15/24 10:06 BMI result Body Mass Index 36.4 Tobacco/Smoking Status: Tobacco use Status Tobacco use date assessed 12/27/23 08/15/24 10:07 Patient Tobacco Use Status Never used Tobacco 08/15/24 10:07 e-Cigarette/Vaping Use Never Used 08/15/24 10:07 PHQ-9: PHQ-9 Score PHQ-9: Total score 3 08/15/24 10:14 Depression Screening Interpretation: Negative Thrive Assessment: Date of Thrive Assessment Date Thrive assessed 08/15/24 08/15/24 10:14 Currently or been in a relationship where the following occur: No concerns reported Const General: cooperative Nutritional Appearance: obese Orientation/consciousness: patient oriented x3 Resp Effort & Inspection: normal respiratory effort Auscultation: clear to auscultation bilaterally Cardio Rate: regular rate Rhythm: regular rhythm Heart sounds: S1 normal heart sound present and S2 normal heart sound present Neuro General: patient oriented x3 Extrem Right lower extremity: no edema Left lower extremity: no edema Psych Appearance: grossly normal Mental Status: mental status grossly normal Speech and movement: Normal speech and movement present Affect: normal affect Attitude: cooperative Thought process: Normal thought process present Thought content: Normal thought content present Insight: Good insight present (Psych) Judgement: Good judgement present (Psych) Assessment and Plan Assessment & Plan (1) SOB (shortness of breath): Code(s): R06.02 - Shortness of breath Plan: Labs, echo, stress test, CT, and PFT testing ordered (2) HTN (hypertension): Code(s): I10 - Essential (primary) hypertension Plan: stable currently Plan The patient agreed to the use of a medical scientist for this encounter. Scribed for ANANT Quintanilla by Cathi Barkley medical scientist, on 08/15/2024 at 11:00 EST. Orders: Orders Comprehensive [place]. Panel Fast Today R06.02 - Shortness of breath TSH reflex Free T4 Today R06.02 - Shortness of breath UA CC w/rflx Micro + Cult Today R06.02 - Shortness of breath CA echo transthoracic complete Today R06.02 - Shortness of breath NM cardiolite stress test Today R06.02 - Shortness of breath Complete Blood Count Auto Diff Today R06.02 - Shortness of breath Lipid Panel Today R06.02 - Shortness of breath B Type Natriuretic Peptide Today R06.02 - Shortness of breath CA stress test Today R06.02 - Shortness of breath PFT pulmonary function test Today R06.02 - Shortness of breath CT chest wo IV con Today R06.02 - Shortness of breath Coding Level of Care Code Est Pt Level 3 (34370) Diagnoses SOB (shortness of breath) R06.02 HTN (hypertension) I10 Additional Codes PATRICIA-7 Assessment Billing - PATRICIA-7 Assessment Tool: PATRICIA-7 Assessment 36624 ([id number])
== END 2024-08-15 12:06 | disposition home or self-care (01) ==
PROVIDERS: PCP Nurse Practitioner Family; Visit Provider Nurse Practitioner Family
DX: R06.02 Shortness of breath (principal); I10 Essential (primary) hypertension

== ENCOUNTER → 2024-08-15 10:01 | Outpatient (BNVA) | payer MEDICARE, OTHER, SELFPAY | PROVIDERS: PCP Nurse Practitioner Family; Visit Provider Nurse Practitioner Family ==

== ENCOUNTER 2024-08-15 11:32 | Outpatient (REF) | payer MEDICARE, OTHER, SELFPAY ==
[2024-08-15 13:38] LABS: MANUAL DIFF FLAG NO
[2024-08-15 13:45] LABS: Appearance Urine Clear; Color Urine Yellow; Glucose Urine UA Negative (Negative); Leukocyte Esterase Urine Negative (Negative); Nitrite Urine Negative (Negative); PH 5.5 (5.0-9.0); Urine Blood Negative (Negative); Urine Ketones Negative (Negative); Urine Protein Negative (Neg-Trace)
[2024-08-15 13:48] LABS: Basophils Absolute Auto 0.1 X10*3/uL (0.0-0.2); Basophils Percent Auto 0.7 % (0-2); Eosinophils Absolute Auto 0.1 X10*3/uL (0.0-0.4); Eosinophils Percent Auto 1.9 % (0-4); Hematocrit 40.6 % (42.0-52.0); Imm Gran Abs Auto 0.07 X10*3/uL (0.00-0.03); Lymphocytes Absolute Auto 1.9 X10*3/uL (1.2-4.9); Lymphocytes Percent Auto 27.5 % (20-40); Mean Corpuscular HGB Conc 34.5 g/dl (31.0-36.0); Mean Corpuscular Hemoglobin 29.6 pg (27.0-33.0); Mean Corpuscular Volume 85.8 fL (80.0-98.0); Mean Platelet Volume 9.4 fL (9.4-12.4); Monocytes Absolute Auto 0.6 X10*3/uL (0.1-1.2); Monocytes Percent Auto 9.4 % (2-11); Neutrophils Absolute Auto 4.1 x10*3/uL (2.0-8.3); Neutrophils Percent Auto 59.5 % (45-73); Platelet Count 243 X10*3/uL (160-400); Red Blood Count 4.73 X10*6/uL (4.60-5.80); White Blood Count 6.8 X10*3/uL (4.8-10.8)
[2024-08-15 14:09] LABS: B Type Natriuretic Peptide 12 pg/mL (<100)
[2024-08-15 14:27] LABS: Alanine Aminotransferase 63 U/L (0-40); Albumin Level 4.7 g/dL (3.5-5.0); Alkaline Phosphatase 75 U/L (39-117); Anion Gap 13 (12-20); Aspartate Amino Transferase 40 U/L (5-37); Bilirubin Total 0.6 mg/dL (0.0-1.0); Blood Urea Nitrogen 17 mg/dL (9-16); Carbon Dioxide 26 mmol/L (22-29); Chloride 105 mmol/L (96-108); Cholesterol 207 mg/dL (<200); Estimated Glomerular Filt Rate 56; Glucose Fasting 106 mg/dL (60-99); HDL Cholesterol 48 mg/dL (>40); LDL Cholesterol Calculated 111 mg/dL (<100); Potassium 4.6 mmol/L (3.3-5.1); Sodium 139 mmol/L (135-145); TSH reflex Free T4 1.19 uIU/mL (0.32-4.0); Total Protein 7.7 g/dL (6.5-8.0); Triglycerides 241 mg/dL (<150)
== END 2024-08-15 11:33 | disposition home or self-care (01) ==
LOC: HO.HMGCLDS 11:32
PROVIDERS: PCP Nurse Practitioner Family; Visit Provider Nurse Practitioner Family
DX: R06.02 Shortness of breath (principal); I10 Essential (primary) hypertension; Z79.899 Other long term (current) drug therapy
CPT/HCPCS: 36415; 80053; 80061; 81003; 83880; 84443; 85025; 96127; 99212

== ENCOUNTER 2024-10-20 11:06 | Outpatient (REF) | payer MEDICARE, OTHER, SELFPAY ==
--- NOTE | ~2024-10-20 | XR_ITS ---
EXAMINATION: XR CHEST CLINICAL INFORMATION: R05.9 - Cough, unspecified COMPARISON: X-ray dated February 21, 2024. TECHNIQUE: 2 views of the chest were obtained. FINDINGS: No consolidation pleural effusion or pneumothorax. Cardiomediastinal silhouette is normal in size. Calcified plaque thoracic aorta. Multilevel thoracic spondylosis. XR/XR chest 2V IMPRESSION: No acute airspace disease. Electronically signed by: Braden Morales MD 10/20/2024 03:24 PM EST
[2024-10-20 16:08] LABS: Influenza A PCR NEGATIVE (Negative); Influenza B PCR NEGATIVE (Negative); Resp Syncy Virus RNA Qual PCR NEGATIVE (Negative); SARS COV2 PCR INHOUSE NEGATIVE (Negative)
== END 2024-10-20 11:07 | disposition home or self-care (01) ==
LOC: HO.HMGCX 11:06
PROVIDERS: PCP Nurse Practitioner Family; Visit Provider Physician Assistant
DX: R05.9 Cough, unspecified (principal); J06.9 Acute upper respiratory infection, unspecified
CPT/HCPCS: 0241U; 71046; 99212

== ENCOUNTER 2024-10-20 11:06 | Outpatient (AMB) | payer MEDICARE, OTHER, SELFPAY ==
[2024-10-20 11:15] VITALS: BP 132/80; PULSE 83; TEMP 36.8; O2SAT 97
--- NOTE | 2024-10-20 11:15 | AM.OFFWIN_ITS ---
Intake Vital Signs 10/20/24 11:15 Height 6 ft 1 in BP 132/80 Blood Pressure Location Lt brachial Position Sitting Pulse 83 Pulse Source Pulse Oximeter Temp 98.3 F Temp Source Oral Pulse Oximetry (%) 97 Intake Visit Reasons: EP Flu like symptoms Intake Note: pt is here for chest congestion, sinuses for 3 days Patient Tobacco Use Status: Never used Tobacco Accompanied by: Self / Same As Patient Allergies oxycodone Allergy (Unknown, Verified 10/20/24 11:16) itchy ENVIRONMENTAL Allergy (Unknown, Uncoded 06/28/24 07:41) ITCHY EYES, WHEEZING statins Allergy (Unknown, Uncoded 06/28/24 07:41) hives Tremfya Allergy (Unknown, Uncoded 06/28/24 07:41) secondary rash Do you need a note to return to daycare/school/sports/work: No HPI HPI Comments History of Present Illness Details History of Present Illness The patient is a 69-year-old male presenting with flu-like symptoms and respiratory concerns. The symptoms began three days ago, following exposure to his , who had flu-like symptoms. Although not confirmed, she did not test for flu, COVID-19, or RSV. The patient's primary complaints include chest congestion, shortness of breath, and wheezing. He has a history of asthma but denies having COPD. He is not a smoker nor does he use vaping products. The patient reports head congestion and itchy ears but denies fever, nausea, vomiting, or diarrhea. He describes the mucus as being thick and dark in color, similar to a sinus infection. For management, he has been using albuterol nebulizers at home. He is on Symbicort, which he takes as prescribed, and uses a rescue inhaler more frequently than usual. The inhaler offers minimal relief due to the thickness of the mucus. The patient reports using Zyrtec regularly and has taken generic Mucinex, which he plans to continue. He has not used decongestants aside from those mentioned. Physical Exam General: Cooperative, healthy appearing, comfortable and no acute distress Orientation/consciousness: Patient oriented x3 Limitations: No limitations Head: Normal to inspection Ears: Hearing grossly normal bilaterally, external ears normal and TM's normal bilaterally, but reports itchy ears Nose: Normal external nose present, Normal nares present and No nasal discharge present Face and sinus: Normal facial exam and Sinuses tender Mouth: Normal oral and palatal mucosa present and moist mucous membranes Throat: Yes tonsils normal, Yes uvula midline. Posterior oropharynx erythema Eyes: Appearance normal, both eyes and all related structures Neck: Normal visual inspection Respirtory: Clear to auscultation bilaterally. Normal respiratory effort, able to speak in complete sentences, Actively coughing, no respiratory distress, not tachypneic, no tripod positioning and no use of accessory muscles Cardiovascular: Regular rate and rhythm. Normal S1 and S2 Skin: No rashes or lesions noted Neuro: Patient oriented x3 Extremities: Normal to inspection and Yes no clubbing, cyanosis or edema [facility] Medical History Mild ascending aorta dilatation Psoriatic arthritis Balanitis Gross hematuria Feeling of incomplete bladder emptying Benign prostatic hyperplasia with lower urinary tract symptoms Nocturia Asthma GERD (gastroesophageal reflux disease) Surgical History History of surgery History of prostate surgery H/O umbilical hernia repair Family History Father Diabetes Hypertension Cancer Mother Hypertension Cancer Social History Housing: House Patient Tobacco Use Status: Never used Tobacco e-Cigarette/Vaping Use: Never Used Second Hand Smoke Exposure: No Current occupational status: 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 - Possible atypical pneumonia Administer a Z-Siva for presumed walking pneumonia due to its anti-inflammatory effects that may benefit the patient's respiratory status. - History of Asthma: Prescribe Tessalon Perles to manage cough symptoms, especially nocturnally. Advise the patient on the continued use of inhalers as needed. Encourage fluid intake and consider using a decongestant to help alleviate the thickness of mucus. Recommend a chest x-ray to exclude pneumonia, and await further reports. If a pneumonia diagnosis is confirmed, consider adding Augmentin as a secondary antibiotic. Patient was informed and verbally consented to the use of an ambient scribe for clinic note documentation during this visit. Orders: Orders XR chest 2V Today R05.9 - Cough, unspecified SARS-CoV2/FLU/RSV Today J06.9 - Acute upper respiratory infection, unspecified Medications: New azithromycin For 250 mg dose pack: take 500 mg today (day 1), then 250 mg for 4 days (days 2-5) PO 6 tabs 0RF benzonatate 200 mg PO TID PRN 14 caps 0RF cough Coding Level of Care Code Est Pt Level 4 (07227) Diagnoses Upper respiratory tract infection, unspecified type J06.9 URI type: unspecified URI
== END 2024-10-20 12:48 | disposition home or self-care (01) ==
PROVIDERS: PCP Nurse Practitioner Family; Visit Provider Physician Assistant
DX: J06.9 Acute upper respiratory infection, unspecified (principal)

== ENCOUNTER 2024-10-20 11:31 | Outpatient (REF) | payer MEDICARE, OTHER, SELFPAY | END 2024-10-20 11:32 | disposition home or self-care (01) | LOC: HO.LAB 11:31 | PROVIDERS: Visit Provider Physician Assistant | DX: Z13.89 Encounter for screening for other disorder (principal) ==

== ENCOUNTER → 2024-10-20 11:35 | Outpatient (BNV) | payer MEDICARE, OTHER, SELFPAY | PROVIDERS: PCP Nurse Practitioner Family; Visit Provider Radiology Diagnostic Radiology | DX: R05.9 Cough, unspecified (principal) | CPT/HCPCS: 71046 ==

== ENCOUNTER 2024-11-23 10:20 | Outpatient (AMB) | payer MEDICARE, OTHER, SELFPAY ==
--- OUTSIDE RECORDS SUMMARY | 2024-11-23 10:22 | XMS_ITS | Patient Health Record ---
Author Organization [facility] Address [address] [place] [phone] Care Team Providers Care Static Balancer Name Role Phone GOPI QUINN Primary Care Provider Alexis Bajwa Jr REASON FOR REFERRAL No Information MEDICATIONS Medication SIG (Take, Route, Frequency, Duration) Notes Start Date End Date Status Pantoprazole Sodium 40 MG 1 tablet Orall y Every AM for 90 Active Suprep Bowel Prep 1 as directed Orally 1 for 1 dose Active Aspir-81 81 MG 1 tablet Orally Once a day Active Fish Oil 1000 MG 1 capsule Orally Onc e a day 10/05/2018 Active Cetirizine HCl 10 MG 1 tablet Orally Once a day Active Tremfya 100 MG/ML 1 ml Subcutaneous as directed Active IMMUNIZATIONS Vaccine Route Administration Date Status Comme nts Influenza Unknown 08/17/2018 Administered SOCIAL HISTORY Sex Assigned At : Social History Observation Description Sex Assigned At Unknown PROBLEMS Problem Type ICD Code Onset Dates Problem Status W/U Status Risk SNOMED Code Notes Problem Colon cancer screening (Z12.11) Active confirmed 499540613 Problem Rectal bleeding (K62.5) Active confirmed 12906434 Problem Gastroesophageal reflux disease without esophagitis (K21.9) Active confirmed 084062545 Problem Hypertension, unspecified type (I10) Active confirmed 25812553 Encounters Encounter Location Date Provider Diagnosis [facility] [address] [place] [phone] 12/01/2023 Alexis Sanchez Jr PLAN OF TREATMENT Future Test Test Name Order Date UPPER GI ENDOSCOPY 02/09/2013 COLONOSCOPY 02/09/2013 COLONOSCOPY 12/18/2016 UPPER GI ENDOSCOPY 10/05/2018 COLONOSCOPY 10/05/2018 Insurance Providers Payer Name Payer Address Payer Phone Subscriber Number Group Number Insured Name Patient Relationship to Insured Coverage Start Date Coverage End Date MEDICARE OF [place] [address] [place] [address] [id number] AIDA SCHULTZ Self - patient is the insured [facility] IN[facility]MNITY [address] [place] [address] [id number] AIDA SCHULTZ Self - patient is the insured MEDICAL (GENERAL) HISTORY Medical History History ICD Code psoriasis gastroesophageal reflux disease (GERD) hypertension hyperlipidemia asthma onychomycosis Denies OR,DM,CVA,renal disease sleep apnea Surgical History Surgery Date(Month/Year) lipoma bladder surgery X 2 tonsillectomy and adenoidectomy hernia repair sleep apnia surgery prostate surgery-removal of scar tissue
--- OUTSIDE RECORDS SUMMARY | 2024-11-23 10:22 | XMS_ITS ---
Author Organization [facility] Address [address] [place] [phone] Care Team Providers Care Benzene Washer Name Role Phone GOPI QUINN Primary Care Provider Alexis Bajwa Jr REASON FOR VISIT cancelled appt. Encounters Encounter Location Date Provider Diagnosis [facility] [address] [place] [id number] 11/01/2023 Alexis Sanchez Jr PLAN OF TREATMENT No Information
[2024-11-23 12:00] VITALS: BP 130/90; PULSE 60; TEMP 36.7; O2SAT 98
--- NOTE | 2024-11-23 12:00 | AM.OFFWIN_ITS ---
Intake Vital Signs 11/23/24 12:00 Weight 285 lb BP 130/90 H Blood Pressure Location Rt brachial Position Sitting Pulse 60 Pulse Source Pulse Oximeter Temp 98.0 F Temp Source Oral Pulse Oximetry (%) 98 Oxygen Delivery Method Room Air Intake Visit Reasons: EP-respiratory infection Intake Note: Patient here for SOB, congestion that has been present for 4 days. Patient Tobacco Use Status: Never used Tobacco Allergies oxycodone Allergy (Unknown, Verified 11/23/24 12:01) itchy ENVIRONMENTAL Allergy (Unknown, Uncoded 11/23/24 12:01) ITCHY EYES, WHEEZING statins Allergy (Unknown, Uncoded 11/23/24 12:01) hives Tremfya Allergy (Unknown, Uncoded 11/23/24 12:01) secondary rash Do you need a note to return to daycare/school/sports/work: No HPI EP-respiratory infection HPI Details This note is constructed using voice recognition software. While every effort has been made to ensure accuracy, research director errors may have been included. The patient is a 69 year old male who presents to the clinic today with cough, sinus congestion for the past 4 days. He has a longstanding history being immune compromised due to medication, so he is tries to be on top of the symptoms when they start. He did start his nebulizer 4 times a day, which seems to be helping the symptoms. He reports the cough which is dry in nature, and dyspnea with activity. He also reports chronic dyspnea due to long COVID. He denies fever, chills. He does report maxillary sinus congestion on the right, which is worse when he leans forward. He is taking Mucinex 12 hour to help his symptoms, it does help him get out thick green secretions. He tested x 2 for covid, negative for both tests. [facility] Medical History Mild ascending aorta dilatation Psoriatic arthritis Balanitis Gross hematuria Feeling of incomplete bladder emptying Benign prostatic hyperplasia with lower urinary tract symptoms Nocturia Asthma GERD (gastroesophageal reflux disease) Surgical History History of surgery History of prostate surgery H/O umbilical hernia repair Family History Father Diabetes Hypertension Cancer Mother Hypertension Cancer Social History Housing: House Patient Tobacco Use Status: Never used Tobacco e-Cigarette/Vaping Use: Never Used Second Hand Smoke Exposure: No Current occupational status: 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 Cognitive needs: No Hearing needs: No Vision needs: No Review of Systems Const All systems reviewed & are unremarkable except as noted in HPI and below Physical Exam Vital Signs: Last Vital Signs Temp 98.0 F 11/23/24 12:00 Pulse 60 11/23/24 12:00 BP 130/90 H 11/23/24 12:00 Pulse Ox 98 11/23/24 12:00 Oxygen Delivery Method Room Air 11/23/24 12:00 Const General: cooperative, healthy appearing, comfortable and no acute distress Orientation/consciousness: patient oriented x3 Limitations: no limitations HEENT Head: Yes normal to inspection Ears: hearing grossly normal bilaterally, external ears normal and TM's normal bilaterally General nose exam: Normal external nose present, Normal nares present, Abnormal mucous membranes and turbinates present erythematous and Nasal discharge present purulent Face and sinus: Yes normal facial exam and Yes sinus tenderness Mouth: Normal oral and palatal mucosa present and moist mucous membranes Throat: Yes posterior oropharynx normal, Yes tonsils normal and Yes uvula midline Eyes General: appearance normal, both eyes and all related structures Neck Neck: Yes normal visual inspection Resp Effort & Inspection: normal respiratory effort, able to speak in complete sentences, Actively coughing, no respiratory distress, not tachypneic, no tripod positioning and no use of accessory muscles Auscultation: clear to auscultation bilaterally Cardio Rate: regular rate Rhythm: regular rhythm Heart sounds: normal S1 and S2 Skin General skin exam: no rashes or lesions noted Neuro General: patient oriented x3 Extrem General: Yes normal to inspection and Yes no clubbing, cyanosis or edema Assessment & Plan Assessment & Plan (1) Sinusitis: Code(s): J32.9 - Chronic sinusitis, unspecified Qualifiers: Sinusitis location: maxillary Chronicity: acute Recurrence: non- recurrent Qualified Code(s): J01.00 - Acute maxillary sinusitis, unspecified Plan: Supportive measures encouraged and reviewed. Advised consideration of sinus rinse if needed. Antibiotic sent to requested pharmacy, advised patient to take antibiotics until completed and not to stop if feeling better, unless the patient has side effects. Advised patient to follow up with primary care provider with worsening or failure to resolve. Viral swab obtained to rule out Covid, Influenza, and RSV based on symptoms. Advised mask wearing while symptomatic and quarantine per current CDC guidelines. Reviewed at home support methods including hydration, humidification, vix vapor rub, sinus rinse, and otc treatment options. Advised follow up with worsening symptoms such as dyspnea at rest, which would require emergent evaluation. Plan See above for full details and plan. Orders: Orders SARS-CoV2/FLU/RSV Today J06.9 - Acute upper respiratory infection, unspecified Medications: New azithromycin For 250 mg dose pack: take 500 mg today (day 1), then 250 mg for 4 days (days 2-5) PO 6 tabs 0RF prednisone 40 mg (2 x 20 mg) PO DAILY 10 tabs 0RF 5 days Coding Level of Care Code Est Pt Level 3 (73116) Diagnoses Acute non-recurrent maxillary sinusitis J01.00 Sinusitis location: maxillary Chronicity: acute Recurrence: non-recurrent
== END 2024-11-23 12:53 | disposition home or self-care (01) ==
PROVIDERS: PCP Nurse Practitioner Family; Visit Provider Registered Nurse
DX: J01.00 Acute maxillary sinusitis, unspecified (principal)

== ENCOUNTER 2024-12-18 08:27 | Outpatient (AMB) | payer MEDICARE, OTHER, SELFPAY ==
[2024-12-18 08:28] VITALS: BP 150/90; PULSE 89; O2SAT 97; BMI 37.7
--- NOTE | 2024-12-18 08:28 | MHC.PC.OV ---
Vital Signs 12/18/24 08:28 Height 6 ft 1 in Weight 286 lb BMI 37.7 BP 150/90 H Blood Pressure Location Lt brachial Position Sitting Pulse 89 Pulse Source Pulse Oximeter Pulse Oximetry (%) 97 Oxygen Delivery Method Room Air Intake Visit Reasons: 4 month follow up Intake Note: pt is here for 4 mon f/up Hand Screen Printer Required: No Accompanied by: Self / Same As Patient Allergies oxycodone Allergy (Unknown, Verified 12/18/24 08:28) itchy ENVIRONMENTAL Allergy (Unknown, Uncoded 11/23/24 12:01) ITCHY EYES, WHEEZING statins Allergy (Unknown, Uncoded 11/23/24 12:01) hives Tremfya Allergy (Unknown, Uncoded 11/23/24 12:01) secondary rash Medication List - Last Reconciled 12/18/24 by Landon Wong, TELESCOPE REPAIRER- albuterol sulfate 2.5 mg (3 mL) inhalation Q4-6H PRN albuterol sulfate 90 mcg/actuation 1 inh inhalation QID PRN aspirin (Adult Aspirin Regimen) 81 mg PO DAILY budesonide-formoterol 80-4.5 mcg/actuation (Symbicort) 2 puffs inhalation BID clotrimazole mg PO BID ezetimibe 10 mg PO DAILY 90 days losartan 50 mg PO DAILY mupirocin 2% 1 appl topical DAILY pantoprazole 40 mg PO DAILY 90 days tamsulosin 0.4 mg PO DAILY Tobacco use date assessed: 12/18/24 Fall risk assessment: No Falls in past year Last assessed Fall Risk: 12/18/24 Dental Screening Dental Screen Date: 12/18/24 Did you have a dental visit in the last 12 months?: Yes Did you have a dental problem in the last 6 months where you did not have access to dental care?: No Was dental information given to patient?: Patient has dentist HPI 4 month follow up HPI Details Chief Complaint The patient presents with persistent shortness of breath and chest discomfort following COVID-19 infection. History of Present Illness The patient is a 69-year-old male presenting with respiratory symptoms following a recent COVID-19 infection about a month ago, which smyth his fourth episode with COVID-19. He reports ongoing shortness of breath, most notably with mild physical activity, and some associated chest discomfort. These symptoms have persisted for approximately four weeks. The patient has a history of asthma and has been using his nebulizer more frequently due to the exacerbated symptoms. Additional diagnostic assessments, including a previously ordered stress test, echocardiogram, and PFT were not completed due to COVID-19. Normal sinus rhythm was noted on today's ECG. The patient?s blood pressure has remained stable at home within the 130s systolically, and his oxygen saturation levels have been reported consistently at 98% or above. There is a consideration of Long COVID syndrome based on the persistent symptoms and patient history. Social History Health Maintenance - Reinforcement of previously ordered PFT testing - Resubmission of stress test and echocardiogram Review of Systems - Cardiovascular: Reports chest discomfort with activity - Respiratory: Reports increased shortness of breath with activity Physical Exam General: Cooperative, healthy appearing, comfortable, no acute distress and well developed Orientation: Patient oriented x3 Limitations: No limitations Head: Normal to inspection Ears: Hearing grossly normal bilaterally Nose: Normal external nose present Face and sinus: Normal facial exam Eyes: Appearance normal, both eyes and all related structures Neck: Normal visual inspection and Yes full ROM Respiratory: Shortness of breath with slightest activity, lungs sound tight with wheezing scattered Cardiovascular: Regular rate and rhythm. Normal S1 and S2, normal sinus rhythm noted on EKG GI: Normal to inspection. Soft to palpation and nontender Skin: No rashes or lesions noted Neuro: Patient oriented x3 Extremities: Normal to inspection Results - Tests: Normal sinus rhythm noted on today's ECG Plan - I will refer the patient to a slag motor operator for further evaluation due to the persistent respiratory symptoms and underlying asthma. - I will also reinforce the order for pulmonary function testing PFT) to assess lung function. - I plan to resubmit the orders for the previously planned echocardiogram ,stress test, PFT to investigate chest discomfort and dyspnea. Patient was informed and verbally consented to the use of an ambient scribe for clinic note documentation during this visit. Discussion Notes During our discussion, I acknowledged the patient's concern about his ongoing respiratory symptoms, which appear to align with a Long COVID syndrome. I explained the necessity of further evaluating the pulmonary symptoms due to his history of asthma and recent COVID infection. We discussed the previously planned diagnostic tests which were deferred due to COVID, and the plan to complete them to clarify any underlying cardiac or pulmonary issues. I recommended and obtained his agreement to continue the referral to a slag motor operator and perform additional testing like PFTs, echocardiogram, and stress test. These tests will aid in determining the underlying cause of his symptoms and inform any necessary treatment adjustments or additional interventions. Also sent symbicort to use daily. Patient Instructions - Continue monitoring oxygen saturation and report any significant drops. - Use the nebulizer as instructed to manage asthma symptoms. - Attend the pulmonary function test (PFT) appointment once scheduled. - Be prepared for the rescheduled echocardiogram and stress test. - Follow up with the learning and development specialist as directed. -chest XR ordered with labs -ER with worsening symptoms [facility] Medical History Mild ascending aorta dilatation Psoriatic arthritis Balanitis Gross hematuria Feeling of incomplete bladder emptying Benign prostatic hyperplasia with lower urinary tract symptoms Nocturia Asthma GERD (gastroesophageal reflux disease) Surgical History History of surgery History of prostate surgery H/O umbilical hernia repair Family History Father Diabetes Hypertension Cancer Mother Hypertension Cancer Social History Housing: House Patient Tobacco Use Status: Never used Tobacco e-Cigarette/Vaping Use: Never Used Second Hand Smoke Exposure: No Current occupational status: 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 1. Little interest or pleasure in doing things: not at all 2. Feeling down, depressed, or hopeless: not at all 3. Trouble falling or staying asleep, or sleeping too much: several days 4. Feeling tired or having little energy: nearly every day 5. Poor appetite or overeating: several days 6. Feeling bad about yourself - or that you are a failure or have let yourself or your family down: not at all 7. Trouble concentrating on things, such as reading the newspaper or watching television: not at all 8. Moving or speaking so slowly that other people could have noticed. Or the opposite - being so fidgety or restless that you have been moving around a lot more than usual: not at all 9. Thoughts that you would be better off or of hurting yourself in some way: not at all Total score: 5 Depression Screening Interpretation: Negative Depression Screening Done: Yes 18855 - PHQ-9 Billing: Yes Source: Developed by Drs. Dwight Ferreira, Yoselin Ruvalcaba, Curt Tabares and colleagues, with an educational salina from [employer]. Thrive Questionnaire Date Thrive assessed: 12/18/24 I am a: Patient What is your living situation today?: I have a steady place to live Within the past 12 months, did the food you bought not last and you didn't have the money to get more?: Never true Within the past 12 months, did you worry whether your food would run out before you got money to buy more?: Never true Do you have trouble paying for medicines?: No Do you have trouble getting transportation to medical appointments?: No Do you have trouble paying your heating and electricity bill?: No Do you have trouble taking care of your child, family member or friend?: No Do you have trouble with day-to-day activities such as bathing, preparing meals, shopping, managing finances, etc.?: No Are you currently unemployed and looking for a job?: No Are you interested in more education?: No Please select the resources that you would like help with: None Currently or been in a relationship where the following occur: No concerns reported THRIVE Score: 0 AUDIT C Alcohol Use Questionnaire (AUDIT-C) 1. How often do you have a drink containing alcohol?: 2-4 times a month 2. How many drinks containing alcohol do you have on a typical day when you are drinking?: 5 or 6 3. How often do you have six or more drinks on one occasion?: Less than monthly Total Score: 5 Score Reviewed/Action Taken: Yes PATRICIA-7 AMB Questionnaire PATRICIA-7 Date PATRICIA - 7 assessed: 12/18/24 Feeling nervous, anxious, or on edge: 0 = Not at all Not being able to stop or control worryin = Not at all Worrying too much about different things: 0 = Not at all Trouble relaxin = Several days Being so restless that it is hard to sit still: 1 = Several days Becoming easily annoyed or irritable: 0 = Not at all Feeling afraid as if something awful might happen: 1 = Several days Total PATRICIA-7 score (0-4 normal; 5-9 mild; 10-14 moderate; 15-21 severe): 3 Source: Developed by Drs. Dwight Ferreira, Yoselin Ruvalcaba, Curt Tabares and colleagues, with an educational salina from [employer]. PATRICIA-7 Assessment Billing PATRICIA-7 Assessment Tool: PATRICIA-7 Assessment 83777 Physical exam (Primary Care) Vital Signs: Last Vital Signs Pulse 89 12/18/24 08:28 BP 150/90 H 12/18/24 08:28 Pulse Ox 97 12/18/24 08:28 Oxygen Delivery Method Room Air 12/18/24 08:28 BMI result Body Mass Index 37.7 Tobacco/Smoking Status: Tobacco use Status Tobacco use date assessed 12/18/24 12/18/24 08:30 Patient Tobacco Use Status Never used Tobacco 12/18/24 08:30 e-Cigarette/Vaping Use Never Used 12/18/24 08:30 PHQ-9: PHQ-9 Score PHQ-9: Total score 5 12/18/24 09:00 Depression Screening Interpretation: Negative Thrive Assessment: Date of Thrive Assessment Date Thrive assessed 12/18/24 12/18/24 08:30 Currently or been in a relationship where the following occur: No concerns reported Coding Level of Care Code Est Pt Level 3 (58718) Diagnoses Chest discomfort R07.89 SOB (shortness of breath) R06.02 Additional Codes PATRICIA-7 Assessment Billing - PATRICIA-7 Assessment Tool: PATRICIA-7 Assessment 57182 ([id number]) PHQ-9 - 31423 - PHQ-9 Billing: Yes ([id number]) Assessment & Plan Assessment & Plan (1) Chest discomfort: Code(s): R07.89 - Other chest pain Category: Medical (2) SOB (shortness of breath): Code(s): R06.02 - Shortness of breath Category: Medical Plan . Orders: Orders XR chest 2V Today R07.89 - Other chest pain AMB EKG-In Office Today R07.89 - Other chest pain Complete Blood Count Auto Diff Today R06.02 - Shortness of breath, R07.89 - Other chest pain Comprehensive Met. Panel Today R06.02 - Shortness of breath, R07.89 - Other chest pain TSH reflex Free T4 Today R06.02 - Shortness of breath, R07.89 - Other chest pain Referrals Pulmonology Referral R06.02 - Shortness of breath, R07.89 - Other chest pain, U09.9 - Post COVID-19 condition, unspecified Medications: New budesonide-formoterol 80-4.5 mcg/actuation (Symbicort) 2 puffs inhalation BID 10.2 grams 0RF albuterol sulfate 90 mcg/actuation used for acute shortness of breath 1 inh inhalation QID PRN 8.5 grams 0RF shortness of breath or wheezing
== END 2024-12-18 09:08 | disposition home or self-care (01) ==
PROVIDERS: PCP Nurse Practitioner Family; Visit Provider Nurse Practitioner Family
DX: R07.89 Other chest pain (principal); R06.02 Shortness of breath

== ENCOUNTER 2024-12-18 08:27 | Outpatient (REF) | payer MEDICARE, OTHER, SELFPAY ==
--- NOTE | ~2024-12-18 | XR_ITS ---
EXAMINATION: XR CHEST 2 VIEWS HISTORY: R07.89 - Other chest pain COMPARISON: Comparison is made with the prior examination dated 10/20/2024. FINDINGS: PA and lateral views of the chest are submitted. The lungs are expanded and clear. There is no pleural effusion, pneumothorax, or pulmonary vascular congestion. The heart is normal in size. There is degenerative disc disease of the spine. XR/XR chest 2V IMPRESSION: No acute cardiopulmonary abnormality. Electronically signed by: Dwight Tovar MD 12/18/2024 10:03 AM MIGUEL
[2024-12-18 09:58] LABS: MANUAL DIFF FLAG NO
[2024-12-18 10:06] LABS: Basophils Percent Auto 0.8 % (0-2); Eosinophils Absolute Auto 0.4 X10*3/uL (0.0-0.4); Eosinophils Percent Auto 7.4 % (0-4); Hematocrit 40.9 % (42.0-52.0); Imm Gran Abs Auto 0.02 X10*3/uL (0.00-0.03); Imm Gran Pct Auto 0.4 % (0.0-0.4); Lymphocytes Absolute Auto 1.4 X10*3/uL (1.2-4.9); Lymphocytes Percent Auto 26.5 % (20-40); Mean Corpuscular HGB Conc 34.2 g/dl (31.0-36.0); Mean Corpuscular Hemoglobin 29.5 pg (27.0-33.0); Mean Corpuscular Volume 86.3 fL (80.0-98.0); Mean Platelet Volume 9.1 fL (9.4-12.4); Monocytes Absolute Auto 0.4 X10*3/uL (0.1-1.2); Monocytes Percent Auto 8.6 % (2-11); Neutrophils Absolute Auto 2.9 x10*3/uL (2.0-8.3); Neutrophils Percent Auto 56.3 % (45-73); Platelet Count 207 X10*3/uL (160-400); Red Blood Count 4.74 X10*6/uL (4.60-5.80); White Blood Count 5.1 X10*3/uL (4.8-10.8)
[2024-12-18 10:25] LABS: Alanine Aminotransferase 41 U/L (0-40); Albumin Level 4.6 g/dL (3.5-5.0); Alkaline Phosphatase 64 U/L (39-117); Anion Gap 11 (12-20); Aspartate Amino Transferase 27 U/L (5-37); Bilirubin Total 0.5 mg/dL (0.0-1.0); Blood Urea Nitrogen 16 mg/dL (9-16); Calcium 9.4 mg/dL (8.4-10.2); Carbon Dioxide 28 mmol/L (22-29); Chloride 106 mmol/L (96-108); Estimated Glomerular Filt Rate > 60; Glucose Random 117 mg/dL (60-115); Potassium 4.6 mmol/L (3.3-5.1); Sodium 140 mmol/L (135-145); Total Protein 7.7 g/dL (6.5-8.0)
[2024-12-18 10:41] LABS: TSH reflex Free T4 1.52 uIU/mL (0.32-4.0)
== END 2024-12-18 08:28 | disposition home or self-care (01) ==
LOC: HO.HMGCX 08:27
PROVIDERS: PCP Nurse Practitioner Family; Visit Provider Nurse Practitioner Family
DX: R07.89 Other chest pain (principal); R06.02 Shortness of breath
CPT/HCPCS: 36415; 71046; 80053; 84443; 85025; 96127; 99212

== ENCOUNTER → 2024-12-18 09:13 | Outpatient (BNV) | payer MEDICARE, OTHER, SELFPAY | PROVIDERS: PCP Nurse Practitioner Family; Visit Provider Radiology Diagnostic Radiology | DX: R07.89 Other chest pain (principal) | CPT/HCPCS: 71046 ==

== ENCOUNTER 2024-12-22 13:44 | Outpatient (REF) | payer MEDICARE, OTHER, SELFPAY ==
[2024-12-26 06:54] LABS: Class Alternaria alternata 0; Class Aspergillus fumigatus 0; Class Bermuda Grass 0; Class Birch 0/1; Class Cat Dander 3; Class Cladosporium herbarum 0; Class Cockroach 0; Class Common Ragweed 0; Class Cottonwood 0; Class Derm. pterony 0/1; Class Dermatophagoides farinae 0/1; Class Dog Dander 2; Class Elm 0; Class Maple Box Elder 0; Class Mountain Cedar 0; Class Mouse Urine Protein 0; Class Mugwort 0; Class Oak 0; Class Penicillium crysogenum 0; Class Rough Pigweed 0; Class Sheep Sorrel 0; Class Sycamore 0; Class Timothy Grass 1; Class Walnut Tree 0; Class White Ash 0; Class White Mulberry 0; D001 IgE D pteronyssinus 0.21 kU/L; D002 - IgE D farinae 0.33 kU/L; E001 - IgE Cat Dander 6.56 kU/L; E005 - IgE Dog Dander 1.25 kU/L; E072-IgE Mouse Urine <0.10 kU/L; G002 IgE Bermuda Grass <0.10 kU/L; G006 - IgE Timothy Grass 0.47 kU/L; I006-IgE Cockroach, German <0.10 kU/L; Immunoglobulin E 147 kU/L (<OR=114); M001 IgE Penicillium chrysogen <0.10 kU/L; M002 - IgE Cladosporium herbar <0.10 kU/L; M003 - IgE Aspergillus fumigat <0.10 kU/L; M006 - IgE Alternaria alternat <0.10 kU/L; T001 IgE Maple/Box Elder <0.10 kU/L; T006 - IgE Cedar, Mountain <0.10 kU/L; T007 - IgE Oak, White <0.10 kU/L; T008 IgE Elm, American <0.10 kU/L; T010 - IgE Walnut <0.10 kU/L; T011 - IgE Maple Leaf Sycamore <0.10 kU/L; T014 - IgE Cottonwood <0.10 kU/L; T015 - IgE Ash, White <0.10 kU/L; T070 - IgE White Mulberry <0.10 kU/L; W001 - IgE Ragweed, Short <0.10 kU/L; W006 - IgE Mugwort <0.10 kU/L; W014 IgE Pigweed, Common <0.10 kU/L; W018 IgE Sheep Sorrel <0.10 kU/L
== END 2024-12-22 13:45 | disposition home or self-care (01) ==
LOC: HO.WFDLDS 13:44
PROVIDERS: Visit Provider Nurse Practitioner Family
DX: R06.02 Shortness of breath (principal); R05.9 Cough, unspecified; J45.909 Unspecified asthma, uncomplicated; Z91.09 Other allergy status, other than to drugs and biological substances
CPT/HCPCS: 36415; 82785; 86003; 99202

== ENCOUNTER 2025-01-17 09:58 | Outpatient (AMB) | payer MEDICARE, OTHER, SELFPAY ==
[2025-01-17 10:00] VITALS: BP 140/86; PULSE 89; TEMP 37; O2SAT 95; BMI 37.7
--- NOTE | 2025-01-17 10:00 | A.OFFPC_ITS ---
Vital Signs 01/17/25 10:00 01/17/25 11:10 Height 6 ft 1 in Weight 286 lb BMI 37.7 BP 140/86 H 140/86 H Blood Pressure Location Lt brachial Position Sitting Pulse 89 Pulse Source Pulse Oximeter Temp 98.6 F Temp Source Oral Pulse Oximetry (%) 95 Oxygen Delivery Method Room Air Intake Visit Reasons: Annual PE Intake Note: pt is here for annual exam [facility] Psychiatrist Required: No Accompanied by: Self / Same As Patient Allergies oxycodone Allergy (Unknown, Verified 01/17/25 10:01) itchy ENVIRONMENTAL Allergy (Unknown, Uncoded 12/22/24 13:10) ITCHY EYES, WHEEZING statins Allergy (Unknown, Uncoded 12/22/24 13:10) hives Tremfya Allergy (Unknown, Uncoded 12/22/24 13:10) secondary rash Medication List - Last Reconciled 01/17/25 by Landon Wong, REHAB MANAGER- albuterol sulfate 2.5 mg (3 mL) inhalation Q4-6H PRN albuterol sulfate 90 mcg/actuation 1 inh inhalation QID PRN aspirin (Adult Aspirin Regimen) 81 mg PO DAILY budesonide-formoterol 80-4.5 mcg/actuation (Symbicort) 2 puffs inhalation BID cetirizine 10 mg PO DAILY clotrimazole mg PO BID ezetimibe 10 mg PO DAILY 90 days losartan 50 mg PO DAILY mupirocin 2% 1 appl topical DAILY pantoprazole 40 mg PO DAILY 90 days tamsulosin 0.4 mg PO DAILY Tobacco use date assessed: 12/18/24 Fall risk assessment: No Falls in past year Last assessed Fall Risk: 01/17/25 Dental Screening Dental Screen Date: 12/18/24 HPI Annual PE HPI Details History of Present Illness The patient is a 69-year-old male presenting with ongoing respiratory distress. The issue began approximately one year ago, following a COVID-19 infection. The patient reports significant wheezing, chest discomfort, and chest tightness. An EKG performed previously showed normal sinus rhythm. I have ordered an echocardiogram and stress test which are scheduled in the near future. Additionally, he is awaiting a CT scan and pulmonary function testing, and is under the care of pulmonology. Today, the patient reports episodes of severe chest tightness and shortness of breath. He notes that his nebulizer provides some relief, but any exertion exacerbates chest tightness and wheezing. No edema is noted, and obesity was observed on physical examination. HTN: pt reports his BP is much better at home Health Maintenance - Colon screening is up to date. - PSA testing is managed by the patient' s urologist. Social History Review of Systems - Respiratory: Reports chest tightness, wheezing, shortness of breath ( intermittent). -denies any fevers, chills, abd pains, c onstipation, diarrhea, blood in stool, SI or HI Physical Exam General: Cooperative, healthy appearing, comfortable, no acute distress and well developed Orientation: Patient oriented x3 Limitations: No limitations Head: Normal to inspection Ears: Hearing grossly normal bilaterally Nose: Normal external nose present Face and sinus: Normal facial exam Eyes: Appearance normal, both eyes and all related structures Neck: Normal visual inspection and Yes full ROM Respiratory: Diminished breath sounds with very scattered faint wheezes. Able to speak in complete sentences. Cardiovascular: Regular rate and rhythm. Normal S1 and S2 GI: Normal to inspection. Soft to palpation and nontender Skin: No rashes or lesions noted Neuro: Patient oriented x3 Extremities: Normal to inspection Results - Labs, Tests and Diagnostics: Previous EKG showed normal sinus rhythm. Plan - Schedule echocardiogram and stress ivelisse t for further evaluation of c ardiovascular status. - Proceed with CT scan and pulmonary fun ction tests as part of ongoing respiratory evaluation. - Continue management of respiratory sym ptoms with current nebulizer treatment. - Follow up with pulmonology as planned for further respiratory management. Discussion Notes I discussed with the patient the ongoing nature of his respiratory distress following COVID-19 and the steps we are taking to assess and manage these symptoms. We have scheduled further cardiac evaluation with an echocardiogram and stress test to rule out any underlying cardiac concerns given the chest t ightness and discomfort reported. Additionally, a CT scan and pulmonary function testing are in place to better understand his respiratory function and guide treatment. I have advised continuing with the current use of his nebulizer for symptom relief. I informed the patient that his colon health maintenance is up to date and that PSA testing is being managed by his urologist. any worsening symptoms, pt knows to go to the ER Patient Instructions - Continue using your nebulizer as direc jazzmine for relief of wheezing and chest tightness. - Follow up as scheduled for echocardiog jeannine, stress test, CT scan, and pulmonary tests. - Report any increase in severity or jayne quency of respiratory symptoms immediately. - Maintain a healthy diet and consider w eight management strategies. [facility] Medical History Mild ascending aorta dilatation Psoriatic arthritis Balanitis Gross hematuria Feeling of incomplete bladder emptying Benign prostatic hyperplasia with lower urinary tract symptoms Nocturia Asthma GERD (gastroesophageal reflux disease) Surgical History History of surgery History of prostate surgery H/O umbilical hernia repair Family History Father Diabetes Hypertension Cancer Mother Hypertension Cancer Social History Housing: House Patient Tobacco Use Status: Never used Tobacco e-Cigarette/Vaping Use: Never Used Second Hand Smoke Exposure: No Current occupational status: 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 Cognitive needs: No Hearing needs: No Vision needs: No Questionnaire Thrive Questionnaire Date Thrive assessed: 12/17/24 I am a: Patient What is your living situation today?: I have a steady place to live Within the past 12 months, did the food you bought not last and you didn't have the money to get more?: Never true Within the past 12 months, did you worry whether your food would run out before you got money to buy more?: Never true Do you have trouble paying for medicines?: No Do you have trouble getting transportation to medical appointments?: No Do you have trouble paying your heating and electricity bill?: No Do you have trouble taking care of your child, family member or friend?: No Do you have trouble with day-to-day activities such as bathing, preparing meals, shopping, managing finances, etc.?: No Are you currently unemployed and looking for a job?: No Are you interested in more education?: No Please select the resources that you would like help with: None Currently or been in a relationship where the following occur: No concerns reported THRIVE Score: 0 PATRICIA-7 AMB Questionnaire PATRICIA-7 Date PATRICIA - 7 assessed: 12/18/24 Source: Developed by Yoselin Casper B.W. Jordon, Curt Tabares and colleagues, with an educational salina from [employer] Physical exam (Primary Care) Vital Signs: Last Vital Signs Temp 98.6 F 01/17/25 10:00 Pulse 89 01/17/25 10:00 BP 140/86 H 01/17/25 10:00 Pulse Ox 95 01/17/25 10:00 Oxygen Delivery Method Room Air 01/17/25 10:00 BMI result Body Mass Index 37.7 Tobacco/Smoking Status: Tobacco use Status Tobacco use date assessed 12/18/24 01/17/25 10:02 Patient Tobacco Use Status Never used Tobacco 01/17/25 10:02 e-Cigarette/Vaping Use Never Used 01/17/25 10:02 Thrive Assessment: Date of Thrive Assessment Date Thrive assessed 12/17/24 01/17/25 10:02 Currently or been in a relationship where the following occur: No concerns reported Coding Level of Care Code Est Pt Prev Care 40-64y(01004) Diagnoses Physical exam Z00.00 Assessment & Plan Assessment & Plan (1) Physical exam: Code(s): Z00.00 - Encounter for general adult medical examination without abnormal findings Category: Medical Plan . Orders: Orders Complete Blood Count Auto Diff Today Z00.00 - Encounter for general adult medical examination without abnormal findings UA CC w/rflx Micro + Cult Today Z00.00 - Encounter for general adult medical examination without abnormal findings Comprehensive [place]. Panel Fast Today Z00.00 - Encounter for general adult medical examination without abnormal findings TSH reflex Free T4 Today Z00.00 - Encounter for general adult medical examination without abnormal findings Lipid Panel Today Z00.00 - Encounter for general adult medical examination without abnormal findings
--- OUTSIDE RECORDS SUMMARY | 2025-01-17 10:26 | XMS_ITS ---
Author Organization [facility] Address [address] [place] [phone] Care Team Providers Care Sander Wooden Pencils Name Role Phone GOPI QUINN Primary Care Provider Alexis Bajwa Jr REASON FOR VISIT cancelled appt. Encounters Encounter Location Date Provider Diagnosis [facility] [address] [place] [phone] 11/01/2023 Alexis Sanchez Jr PLAN OF TREATMENT No Information
--- OUTSIDE RECORDS SUMMARY | 2025-01-17 10:26 | XMS_ITS | Patient Health Record ---
Author Organization [facility] Address [address] [place] [address] Care Team Providers Care Web Content Editor Name Role Phone GOPI QUINN Primary Care Provider Alexis Bajwa Jr Unavailable [phone] REASON FOR REFERRAL No Information MEDICATIONS Medication [...] Problem Colon cancer screening (Z12.11) Active confirmed 761578287 Problem Rectal bleeding (K62.5) Active confirmed 39692573 Problem Gastroesophageal reflux disease without esophagitis (K21.9) Active confirmed 051561952 Problem Hypertension, unspecified type (I10) Active confirmed 78146629 PLAN OF TREATMENT Future Test Test Name Order Date UPPER GI ENDOSCOPY 02/09/2013 COLONOSCOPY 02/09/2013 COLONOSCOPY 12/18/2016 UPPER GI ENDOSCOPY 10/05/2018 COLONOSCOPY 10/05/2018 Insurance Providers Payer Name Payer Address Payer Phone Subscriber Number Group Number Insured Name Patient Relationship to Insured Coverage Start Date Coverage End Date MEDICARE OF [employer] [address] [place] [address] [id number] AIDA SCHULTZ Self - patient is the insured [facility] INDEMNITY [address] [place] [address] [phone] [id number] [id number] BYRD Self - patient is the insured MEDICAL (GENERAL) HISTORY Medical History History ICD Code psoriasis gastroesophageal reflux disease (GERD) hypertension hyperlipidemia asthma onychomycosis Denies [place],DM,CVA,renal disease sleep apnea Surgical History Surgery Date(Month/Year) lipoma bladder surgery X 2 tonsillectomy and adenoidectomy hernia repair sleep apnia surgery prostate surgery-removal of scar tissue
--- OUTSIDE RECORDS SUMMARY | 2025-01-17 10:27 | XMS_ITS ---
Author Organization [facility] Address [address] [place] [phone] Care Team Providers Care Snow Ranger Name Role Phone GOPI QUINN Primary Care Provider Paulina e Alexis Sanchez Jr REASON FOR VISIT Patient presents today for a screening colonoscopy Encounters Encounter Location Date Provider Diagnosis [facility] [address] [place] [phone] 12/01/2023 Alexis Sanchez Jr PLAN OF TREATMENT No Information
[2025-01-17 11:10] VITALS: BP 140/86
== END 2025-01-17 11:22 | disposition home or self-care (01) ==
PROVIDERS: PCP Nurse Practitioner Family; Visit Provider Nurse Practitioner Family
DX: Z00.00 Encounter for general adult medical examination without abnormal findings (principal)

== ENCOUNTER 2025-01-17 09:58 | Outpatient (REF) | payer MEDICARE, OTHER, SELFPAY ==
[2025-01-17 13:09] LABS: MANUAL DIFF FLAG NO
[2025-01-17 13:11] LABS: Appearance Urine Turbid; Color Urine Yellow; Glucose Urine UA Negative (Negative); Leukocyte Esterase Urine Negative (Negative); Nitrite Urine Negative (Negative); PH 5.5 (5.0-9.0); Specific Gravity - Urine >= 1.030 (1.005-1.025); Urine Blood Negative (Negative); Urine Ketones Negative (Negative); Urine Protein Negative (Neg-Trace)
[2025-01-17 13:36] LABS: Basophils Absolute Auto 0.1 X10*3/uL (0.0-0.2); Basophils Percent Auto 0.9 % (0-2); Eosinophils Absolute Auto 0.2 X10*3/uL (0.0-0.4); Eosinophils Percent Auto 3.5 % (0-4); Hematocrit 39.8 % (42.0-52.0); Hemoglobin 13.8 g/dl (14.0-18.0); Imm Gran Abs Auto 0.01 X10*3/uL (0.00-0.03); Imm Gran Pct Auto 0.2 % (0.0-0.4); Lymphocytes Absolute Auto 1.8 X10*3/uL (1.2-4.9); Lymphocytes Percent Auto 27.9 % (20-40); Mean Corpuscular HGB Conc 34.7 g/dl (31.0-36.0); Mean Corpuscular Hemoglobin 29.6 pg (27.0-33.0); Mean Corpuscular Volume 85.2 fL (80.0-98.0); Mean Platelet Volume 9.5 fL (9.4-12.4); Monocytes Absolute Auto 0.6 X10*3/uL (0.1-1.2); Monocytes Percent Auto 9.3 % (2-11); Neutrophils Absolute Auto 3.7 x10*3/uL (2.0-8.3); Neutrophils Percent Auto 58.2 % (45-73); Platelet Count 218 X10*3/uL (160-400); Red Blood Count 4.67 X10*6/uL (4.60-5.80); Red Cell Distribution Width 13.1 % (11.0-16.0); White Blood Count 6.4 X10*3/uL (4.8-10.8)
[2025-01-17 14:15] LABS: Alanine Aminotransferase 50 U/L (0-40); Albumin Level 4.8 g/dL (3.5-5.0); Alkaline Phosphatase 70 U/L (39-117); Anion Gap 13 (12-20); Aspartate Amino Transferase 35 U/L (5-37); Bilirubin Total 0.5 mg/dL (0.0-1.0); Blood Urea Nitrogen 19 mg/dL (9-16); Calcium 9.5 mg/dL (8.4-10.2); Carbon Dioxide 25 mmol/L (22-29); Chloride 106 mmol/L (96-108); Cholesterol 213 mg/dL (<200); Estimated Glomerular Filt Rate > 60; Glucose Fasting 100 mg/dL (60-99); HDL Cholesterol 50 mg/dL (>40); LDL Cholesterol Calculated 116 mg/dL (<100); Potassium 4.4 mmol/L (3.3-5.1); Sodium 140 mmol/L (135-145); TSH reflex Free T4 1.09 uIU/mL (0.32-4.0); Total Protein 7.9 g/dL (6.5-8.0); Triglycerides 236 mg/dL (<150)
[2025-01-18 09:04] LABS: Immunoglobulin E 404 kU/L (<OR=114)
== END 2025-01-17 09:59 | disposition home or self-care (01) ==
LOC: HO.HMGCLDS 09:58
PROVIDERS: Nurse Practitioner Family; PCP Nurse Practitioner Family; Visit Provider Nurse Practitioner Family
DX: Z00.01 Encounter for general adult medical examination with abnormal findings (principal); R06.02 Shortness of breath; R07.89 Other chest pain; I10 Essential (primary) hypertension; Z86.16 Personal history of COVID-19
CPT/HCPCS: 36415; 80053; 80061; 81003; 82785; 84443; 85025; 99397

== ENCOUNTER → 2025-01-24 07:58 | Outpatient (REF) | payer MEDICARE, OTHER, SELFPAY ==
--- NOTE | 2025-01-24 08:01 | CA_ITS ---
Acquisition Time: 2025-01-24 08:07:36 Total Exercise Time: 00:05:05 Test Indications: Dyspnea with Exercise Medications: ALBUTEROL LOSARTAN ASA CETERIZINE PANTOPRAZOLE TAMSULOSIN Protocol: HIPOLITO Max HR: 137 BPM 90% of Pred: 152 BPM Max BP: 204/84 mmHG Max Work Load: 7.0 METS Exercise Stress Test with exercise 5 mins 5 secs of Hipolito Protocol, achieving 90% MPHR, with reports of moderate SOB, no chest discomfort, with isolated PACs, with normotenisve response to exercise- resting BP 150/88. Without any EKG changes meeting criteria for ischemia. In recovery, breathing returned to baseline. BP improved. Nuclear images pending. Test reviewed with Dr. Orantes. Referred By: Landon Wong Electronically Signed By: Andrew Early
--- OUTSIDE RECORDS SUMMARY | 2025-01-24 08:05 | XMS_ITS | Patient Health Record ---
Author Organization [facility] Address [address] [place] [address] Care Team Providers Care Ham Doctor Name Role Phone GOPI QUINN Primary Care Provider Alexis Bajwa Jr Unavailable [phone] REASON FOR REFERRAL No Information MEDICATIONS Medication [...] Problem Colon cancer screening (Z12.11) Active confirmed [id number] Problem Rectal bleeding (K62.5) Active confirmed 51694558 Problem Gastroesophageal reflux disease without esophagitis (K21.9) Active confirmed 664251846 Problem Hypertension, unspecified type (I10) Active confirmed 19077161 PLAN OF TREATMENT Future Test Test Name Order Date UPPER GI ENDOSCOPY 02/09/2013 COLONOSCOPY 02/09/2013 COLONOSCOPY 12/18/2016 UPPER GI ENDOSCOPY 10/05/2018 COLONOSCOPY 10/05/2018 Insurance Providers Payer Name Payer Address Payer Phone Subscriber Number Group Number Insured Name Patient Relationship to Insured Coverage Start Date Coverage End Date MEDICARE OF [employer] [address] [place] [address] [id number] AIDA SCHULTZ Self - patient is the insured [facility] INDEMNITY [address] [place] [address] [phone] [id number] [id number] BYRD Self - patient is the insured MEDICAL (GENERAL) HISTORY Medical History History ICD Code psoriasis gastroesophageal reflux disease (GERD) hypertension hyperlipidemia asthma onychomycosis Denies [place],DM,CVA,renal disease sleep apnea Surgical History Surgery Date(Month/Year) lipoma bladder surgery X 2 tonsillectomy and adenoidectomy hernia repair sleep apnia surgery prostate surgery-removal of scar tissue
--- OUTSIDE RECORDS SUMMARY | 2025-01-24 08:05 | XMS_ITS ---
Author Organization [facility] Address [address] [place] [phone] Care Team Providers Care Automotive Leasing Sales Representative Name Role Phone GOPI QUINN Primary Care Provider Alexis Bajwa Jr [phone] REASON FOR VISIT cancelled appt. Encounters Encounter Location Date Provider Diagnosis [facility] [address] [place] [phone] 11/01/2023 Alexis Sanchez Jr PLAN OF TREATMENT No Information
--- OUTSIDE RECORDS SUMMARY | 2025-01-24 08:05 | XMS_ITS ---
Author Organization [facility] Address [address] [place] [phone] Care Team Providers Care Microstrategy Reports Developer Name Role Phone GOPI QUINN Primary Care Provider Paulina e Alexis Sanchez Jr [phone] REASON FOR VISIT Patient presents today for a screening colonoscopy Encounters Encounter Location Date Provider Diagnosis [facility] [address] [place] [phone] 12/01/2023 Alexis Sanchez Jr PLAN OF TREATMENT No Information
== END ==
LOC: HO.CARD 07:58
PROVIDERS: PCP Nurse Practitioner Family; Visit Provider Nurse Practitioner Family
DX: R06.02 Shortness of breath (principal)
CPT/HCPCS: 93017; J0280; J2785

== ENCOUNTER → 2025-01-24 08:01 | Outpatient (BNV) | payer MEDICARE, OTHER, SELFPAY | PROVIDERS: PCP Nurse Practitioner Family | DX: R06.02 Shortness of breath (principal); I49.1 Atrial premature depolarization | CPT/HCPCS: 78452; 93016; 93018 ==

== ENCOUNTER 2025-01-26 14:07 | Outpatient (REF) | payer MEDICARE, OTHER, SELFPAY ==
--- NOTE | ~2025-01-26 | CT_ITS ---
CLINICAL HISTORY: U09.9 - Post COVID-19 condition, unspecified CT chest without contrast Comparison: None Findings: The heart size is normal. There is coronary arterial calcification. The visualized thyroid and mediastinum are otherwise unremarkable. The lungs are clear. The upper abdomen is unremarkable. The bones are intact. IMPRESSION: 1. Coronary artery calcification. This document has been electronically signed by: Jose Villegas MD on 01/29/2025 08:46:47
--- OUTSIDE RECORDS SUMMARY | 2025-01-26 16:19 | XMS_ITS ---
Author Organization [facility] Address [address] [place] [phone] Care Team Providers Care Video News Editor Name Role Phone GOPI QUINN Primary Care Provider Paulina e Alexis Sanchez Jr REASON FOR VISIT Patient presents today for a screening colonoscopy Encounters Encounter Location Date Provider Diagnosis [facility] [address] [place] [phone] 12/01/2023 Alexis Sanchez Jr PLAN OF TREATMENT No Information
--- OUTSIDE RECORDS SUMMARY | 2025-01-26 16:19 | XMS_ITS ---
Author Organization [facility] Address [address] [place] [phone] Care Team Providers Care Mud Temperer Name Role Phone GOPI QUINN Primary Care Provider Alexis Bajwa Jr [phone] REASON FOR VISIT cancelled appt. Encounters Encounter Location Date Provider Diagnosis [facility] [address] [place] [phone] 11/01/2023 Alexis Sanchez Jr PLAN OF TREATMENT No Information
--- OUTSIDE RECORDS SUMMARY | 2025-01-26 16:19 | XMS_ITS | Patient Health Record ---
Author Organization [facility] Address [address] [place] [address] Care Team Providers Care Agricultural Equipment Test Engineer Name Role Phone GOPI QUINN Primary Care Provider Alexis Bajwa Jr Unavailable REASON FOR REFERRAL No Information MEDICATIONS Medication [...] Problem Colon cancer screening (Z12.11) Active confirmed 184103468 Problem Rectal bleeding (K62.5) Active confirmed 99541530 Problem Gastroesophageal reflux disease without esophagitis (K21.9) Active confirmed 620937311 Problem Hypertension, unspecified type (I10) Active confirmed 79779629 PLAN OF TREATMENT Future Test Test Name Order Date UPPER GI ENDOSCOPY 02/09/2013 COLONOSCOPY 02/09/2013 COLONOSCOPY 12/18/2016 UPPER GI ENDOSCOPY 10/05/2018 COLONOSCOPY 10/05/2018 Insurance Providers Payer Name Payer Address Payer Phone Subscriber Number Group Number Insured Name Patient Relationship to Insured Coverage Start Date Coverage End Date MEDICARE OF [employer] [address] [place] [address] [id number] AIDA SCHULTZ Self - patient is the insured [facility] INDEMNITY [address] [place] [address] [phone] [id number] [id number] BYRD Self - patient is the insured MEDICAL (GENERAL) HISTORY Medical History History ICD Code psoriasis gastroesophageal reflux disease (GERD) hypertension hyperlipidemia asthma onychomycosis Denies [place],DM,CVA,renal disease sleep apnea Surgical History Surgery Date(Month/Year) lipoma bladder surgery X 2 tonsillectomy and adenoidectomy hernia repair sleep apnia surgery prostate surgery-removal of scar tissue
== END 2025-01-26 14:08 | disposition home or self-care (01) ==
LOC: HO.CT 14:07
PROVIDERS: PCP Nurse Practitioner Family; Visit Provider Nurse Practitioner Family
DX: U09.9 Post COVID-19 condition, unspecified (principal); R05.9 Cough, unspecified
CPT/HCPCS: 71250

== ENCOUNTER → 2025-01-26 14:10 | Outpatient (BNV) | payer MEDICARE, OTHER, SELFPAY | PROVIDERS: PCP Nurse Practitioner Family; Visit Provider Specialist | DX: R05.9 Cough, unspecified (principal); U09.9 Post COVID-19 condition, unspecified; I25.84 Coronary atherosclerosis due to calcified coronary lesion | CPT/HCPCS: 71250 ==

== ENCOUNTER → 2025-01-30 13:55 | Outpatient (REF) | payer MEDICARE, OTHER, SELFPAY ==
--- NOTE | 2025-01-30 14:00 | CA_ITS ---
Transthoracic Echocardiogram Patient (Last, First, Middle): Kwabena Lucio J Gender: Male Date of : 1955 Age: 69 Procedure Date: 01/30/2025 Procedure Type: Transthoracic Echocardiogram Location: OP Height: 185. cm Weight: 127.92 kg BSA: 2.49 m2 Heart Rate: 78 bpm BP: 158 / 90 mmHg Warping Machine Operator: NICOLE Referring MD: Landon Wong [facility] Software Development Coordinator: Jhonatan Murcia MD Symptoms: R06.02 - Shortness of breath Study Quality: Fair ECG Rhythm: Sinus Conclusions: - 1. Normal LV ejection fraction of 60-65% with mild LVH with impaired relaxation filling pattern 2. Mild aortic regurgitation 3. Mildly dilated ascending aorta at 3.7 cm 4. Normal RV systolic pressure 5. No gross pericardial effusion Findings Left Ventricle Normal left ventricular size and systolic function. There is mildly increased left ventricular wall thickness. The visually estimated ejection fraction is between 60-65%. Spectral Doppler is indicative of an impaired relaxation filling pattern. E/E prime ratio is between 8 and 15 consistent with indeterminate filling pressures. There is mild septal asymmetric hypertrophy. Right Ventricle Normal right ventricular cavity size and systolic function. Atria The left atrium is normal in size. Interatrial shunt cannot be excluded. The right atrium is normal in size. Aortic Valve There is mild calcification of the aortic valve. There is no aortic valve stenosis. There is mild aortic valve regurgitation. Mitral Valve There is mild anterior and posterior mitral leaflet thickening. There is trace mitral valve regurgitation. There is no mitral valve stenosis. Pulmonic Valve The pulmonic valve was not well visualized. Tricuspid Valve Likely normal tricuspid valve structure and function. There is trace tricuspid valve regurgitation. The right ventricular systolic pressure is normal. The right ventricular systolic pressure is 20 mmHg. Normal right atrial pressure. There is no evidence of pulmonary hypertension. Great Vessels The aorta was not well visualized. The pulmonary artery was not well visualized. There is mild dilatation of the ascending aorta measuring 3.70 cm. Venous The inferior vena cava is normal in size. Pericardium/Pleural There is no evidence of pericardial effusion. Recommendations, Care & Conclusions Recommend contrast in the future to improve endocardial definition. Measurements 2D Linear Measurements IVSd: 1.16 0.6-0.9/0.6-1.0 cm LVIDd: 5.21 3.9-5.3/4.2-5.9 cm LVIDd Index: 2.09 2.4-3.2/2.2-3.1 cm/m2 LVIDs: 2.65 2.0-3.6 cm LVPWd: 1.07 0.7-1.1 cm LA Diam: 3.60 2.7-3.8/3.0-4.0 cm LAIDs Index: 1.45 1.5-2.3 cm/m2 LV Mass: 281.23 67-162/88-224 g LV Mass Index: 112.94 43-95/49-115 g/m2 LVOT Diam: 2.20 3.0+(-)1.3 cm 2D Systolic Function EF 4C: 60.70 >55% EF 2C: 58.90 >55% EF BiP: 61.50 >55% Mitral Valve MV Pk E: 0.81 MV PK A: 0.77 MV Decel Time: 293.00 E/A: 1.10 E'Lateral: 6.74 E'Medial: 6.09 E/E' Med: 13.30 E/E' Lat: 12.00 PHT: 86.00 MVA PHT: 2.56 Decel [place]: 2.76 Aortic Valve AoV Pk Kiko: 1.72 AoV Mn Kiko: 1.34 AoV VTI: 0.36 AoV Pk Grad: 12.00 Aov Mn Grad: 8.00 [place] Cont.VTI: 3.77 AI Pk Kiko: 3.90 AI [place]: 2.09 LVOT LVOT Pk Kiko: 1.63 LVOT Mn Kiko: 1.29 LVOT VTI: 0.36 LVOT Pk Grad: 11.00 LVOT Mn Grad: 7.00 LVOT Diam: 2.20 LVOT Area: 3.80 Diastolic Function MV Pk E: 0.81 MV Pk A: 0.77 E/A: 1.10 E'Medial: 6.09 E/E' Med: 13.30 E' Laterial: 6.74 E/E' Lat: 12.00 Right Ventricle TAPSE (mm): 22.30 TVS' Kiko: 11.50 Tricuspid Valve TR Pk Kiko: 2.07 TR Pk Grad: 17.00 RA Press: 3.00 RVSP: 20.00 Great Vessels Aorta Sinus of Valsalva: 3.80 2.0-3.5 cm Ao Asc: 3.70 2.1-3.4 cm Pulmonary Valve PV Pk Kiko: 1.06 Peak PV Grad: 4.00 Updated in Other Vendor System with Status of Final Jhonatan Murcia MD electronically signed on 01/31/2025 11:17:04 AM with status of Final
--- NOTE | 2025-01-30 15:07 | PFT_ITS ---
Indication: Asthma Spirometry [FEV1 to FVC 65%; FEV1 3.4 L; FVC 5.21 L. no significant response to bronchodilators noted although there was a trend.] Lung Volumes [Total capacity 100% predicted; residual volume that is 6% predicted; expiratory reserve volume 45% predicted] Diffusion Capacity [DLCO 100% predicted] Comparisons [None] Interpretation [There is a obstructive ventilatory defect consistent with mild COPD. Patient may have asthma COPD overlap syndrome. No significant response to bronchodilators noted although there was a trend. Lung volumes are normal except for decrease in the expiratory reserve volume secondary to likely an elevated BMI. Diffusing capacity is within normal limits. Clinical correlation warranted.] MTDD
[2025-01-30 15:53] VITALS: PULSE 86
--- OUTSIDE RECORDS SUMMARY | 2025-01-30 17:34 | XMS_ITS | Patient Health Record ---
Author Organization [facility] Address [address] [place] [address] Care Team Providers Care Senior Education Specialist Name Role Phone GOPI QUINN Primary Care Provider Alexis Bajwa Jr Unavailable [phone] REASON FOR REFERRAL No Information MEDICATIONS [...] Problem Colon cancer screening (Z12.11) Active confirmed 105233943 Problem Rectal bleeding (K62.5) Active confirmed 52602731 Problem Gastroesophageal reflux disease without esophagitis (K21.9) Active confirmed 901188491 Problem Hypertension, unspecified type (I10) Active confirmed [id number] PLAN OF TREATMENT Future Test Test Name Order Date UPPER GI ENDOSCOPY 02/09/2013 COLONOSCOPY 02/09/2013 COLONOSCOPY 12/18/2016 UPPER GI ENDOSCOPY 10/05/2018 COLONOSCOPY 10/05/2018 Insurance Providers Payer Name Payer Address Payer Phone Subscriber Number Group Number Insured Name Patient Relationship to Insured Coverage Start Date Coverage End Date MEDICARE OF [place] [address] [place] [address] [id number] AIDA SCHULTZ Self - patient is the insured [facility] INDEMNITY [address] [place] [address] [phone] [id number] SABRINAAIDA BYRD Self - patient is the insured MEDICAL (GENERAL) HISTORY Medical History History ICD Code psoriasis gastroesophageal reflux disease (GERD) hypertension hyperlipidemia asthma onychomycosis Denies [place],DM,CVA,renal disease sleep apnea Surgical History Surgery Date(Month/Year) lipoma bladder surgery X 2 tonsillectomy and adenoidectomy hernia repair sleep apnia surgery prostate surgery-removal of scar tissue
--- OUTSIDE RECORDS SUMMARY | 2025-01-30 17:34 | XMS_ITS ---
Author Organization [facility] Address [address] [place] [address] Care Team Providers Care Residential Property Consultant Name Role Phone GOPI QUINN Primary Care Provider Paulina e Alexis Sanchez Jr [phone] REASON FOR VISIT cancelled appt. Encounters Encounter Location Date Provider Diagnosis [facility] [address] [place] [id number] 11/01/2023 Alexis Sanchez Jr PLAN OF TREATMENT No Information
--- OUTSIDE RECORDS SUMMARY | 2025-01-30 17:34 | XMS_ITS ---
Author Organization [facility] Address [address] [place] [phone] Care Team Providers Care Surfacing Machine Operator Name Role Phone GOPI QUINN Primary Care Provider Paulina e Alexis Sanchez Jr REASON FOR VISIT Patient presents today for a screening colonoscopy Encounters Encounter Location Date Provider Diagnosis [facility] [address] [place] [id number] 12/01/2023 Alexis Sanchez Jr PLAN OF TREATMENT No Information
== END ==
LOC: HO.CARD 13:55
PROVIDERS: PCP Nurse Practitioner Family; Visit Provider Nurse Practitioner Family
DX: R07.89 Other chest pain (principal); R06.02 Shortness of breath; J45.909 Unspecified asthma, uncomplicated
CPT/HCPCS: 93306; 94010; 94640; 94727; 94729

== ENCOUNTER → 2025-01-30 14:00 | Outpatient (BNV) | payer MEDICARE, OTHER, SELFPAY | PROVIDERS: PCP Nurse Practitioner Family; Visit Provider Internal Medicine Cardiovascular Disease | DX: I42.2 Other hypertrophic cardiomyopathy (principal); I35.1 Nonrheumatic aortic (valve) insufficiency | CPT/HCPCS: 93306 ==

== ENCOUNTER → 2025-01-30 15:07 | Outpatient (BNV) | payer MEDICARE, OTHER, SELFPAY | PROVIDERS: PCP Nurse Practitioner Family; Visit Provider Hospitalist | DX: J45.909 Unspecified asthma, uncomplicated (principal) | CPT/HCPCS: 94060; 94727; 94729 ==

== ENCOUNTER 2025-03-28 12:39 | Outpatient (AMB) | payer MEDICARE, OTHER, SELFPAY ==
--- NOTE | 2025-03-28 12:49 | MHC.OFFVIS ---
Intake Visit Reasons: OV-joint of RT thumb possible discuss surgery? Intake Note: Kwabena is a 69 year old -- hand dominant male who presents today fora follow up of his Right Basal Joint OA. He was last seen on 11/30/23 where he received an injection. Patient reports that this injection was only helpful for about 2 weeks. He is having increasing pain, swelling and weakness of the left thumb and wrist. He states that the pain and weakness is not preventing him from opening jars and lifting things. He is open to discuss surgical intervention if it will improve his current symtpoms. Allergies oxycodone Allergy (Unknown, Verified 03/28/25 12:56) itchy ENVIRONMENTAL Allergy (Unknown, Uncoded 03/28/25 12:56) ITCHY EYES, WHEEZING statins Allergy (Unknown, Uncoded 03/28/25 12:56) hives Tremfya Allergy (Unknown, Uncoded 03/28/25 12:56) secondary rash HPI HPI OV-joint of RT thumb possible discuss surgery?: Details: Kwabena is a 69 year old right hand dominant man who returns to discuss his right basal joint OA. He was last seen, and injected, on 11/30/23, with limited relief. He continues to complain of pain & weakness in his thumb, and has difficulty with gripping or twisting objects. He says the injection only gave him ~2 weeks of relief. He is now having difficulty with more basic daily activities due to his pain & weakness. He denies any numbness or tingling. He is open to discussing a repeat injection vs surgery. 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 He is currently retired. [facility] Medical History (Updated 01/31/25 @ 12:17 by ANANT Wallace) Mild ascending aorta dilatation Psoriatic arthritis Balanitis Gross hematuria Feeling of incomplete bladder emptying Benign prostatic hyperplasia with lower urinary tract symptoms Nocturia Asthma GERD (gastroesophageal reflux disease) Surgical History History of surgery History of prostate surgery H/O umbilical hernia repair Family History Father Diabetes Hypertension Cancer Mother Hypertension Cancer Social History Housing: House Patient Tobacco Use Status: Never used Tobacco e-Cigarette/Vaping Use: Never Used Second Hand Smoke Exposure: No Current occupational status: 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 They show no fractures or dislocations. He has basal joint OA with near complete loss of the joint space , suluxation, and osteophyte formation Office Procedures AMB Fracture Care Details: no fx, inj Fracture Billing Code: Fracture Billing Code Assessment & Plan Assessment & Plan (1) Arthritis of carpometacarpal (CMC) joint of right thumb: Code(s): M18.11 - Unilateral primary osteoarthritis of first carpometacarpal joint, right hand Category: Medical (2) Long COVID: Code(s): U09.9 - Post COVID-19 condition, unspecified Category: Medical (3) Asthma: Code(s): J45.909 - Unspecified asthma, uncomplicated Category: Medical Plan Assessment & Plan: 1. Right basal joint OA, S/P injection Date of injection: 11/30/23 He claims to have had a work related injury ~14 years ago. I educated him about this condition I discussed operative and non-operative treatment options, and had a long discussion with him concerning surgery He would like to proceed with an injection today I discussed activity modification, they should limit or avoid any heavy or repetitive pinching or gripping activities He should work on ROM exercises, and avoid any gripping or strengthening activities I discussed the use of assistive devices for daily activity Injection #1: The risks and benefits of a steroid injection including but not limited to risk of damage to blood vessels, nerve, tendon, infection, skin bleaching, persistent or worsening pain, and failure to improve symptoms were discussed with the patient and they wish to proceed with the steroid injection. Once consent was obtained the skin over the dorsum of the Right basal joint was sterilely prepped. The joint was then injected with a combination of 1 mL of (40 mg/ml} Depo-Medrol and 1% plain Lidocaine. The patient appears to have tolerated the procedure well and with no complications. He had good early relief before leaving clinic today. He knows that they may not have another steroid injection into this joint for least 4 months. Scribed for Cynthia Coburn MD by Giovanni Cheney, medical logistics specialist, on 03/28/25 at 1:20 PM, EST. Orders: Orders XR hand RT min 3V Today M79.641 - Pain in right hand Coding Level of Care Code Est Pt Level 4 (40991) Diagnoses Arthritis of carpometacarpal (CMC) joint of right thumb M18.11 Long COVID U09.9 Asthma J45.909 CPT Codes Fracture Care - Fracture Billing Code: Fracture Billing Code ([id number])
--- NOTE | 2025-03-28 12:49 | MHC.OFFVIS ---
Intake Visit Reasons: OV-joint of RT thumb possible discuss surgery? Allergies oxycodone Allergy (Unknown, Verified 03/28/25 12:56) itchy ENVIRONMENTAL Allergy (Unknown, Uncoded 03/28/25 12:56) ITCHY EYES, WHEEZING statins Allergy (Unknown, Uncoded 03/28/25 12:56) hives Tremfya Allergy (Unknown, Uncoded 03/28/25 12:56) secondary rash PFSH Medical History (Updated 01/31/25 @ 12:17 by KACY WallaceTRAMAINE) Mild ascending aorta dilatation Psoriatic arthritis Balanitis Gross hematuria Feeling of incomplete bladder emptying Benign prostatic hyperplasia with lower urinary tract symptoms Nocturia Asthma GERD (gastroesophageal reflux disease) Surgical History History of surgery History of prostate surgery H/O umbilical hernia repair Family History Father Diabetes Hypertension Cancer Mother Hypertension Cancer Social History Housing: House Patient Tobacco Use Status: Never used Tobacco e-Cigarette/Vaping Use: Never Used Second Hand Smoke Exposure: No Current occupational status: 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
== END 2025-03-28 13:46 | disposition home or self-care (01) ==
LOC: HO.HOS 12:40
PROVIDERS: PCP Nurse Practitioner Family; Visit Provider Orthopaedic Surgery
DX: M18.11 Unilateral primary osteoarthritis of first carpometacarpal joint, right hand (principal); U09.9 Post COVID-19 condition, unspecified; J45.909 Unspecified asthma, uncomplicated
CPT/HCPCS: 20600; 99214

== ENCOUNTER 2025-03-28 12:44 | Outpatient (REF) | payer MEDICARE, OTHER, SELFPAY ==
--- NOTE | ~2025-03-28 | XR_ITS ---
EXAMINATION: XR HAND 3 OR MORE VIEWS RIGHT HISTORY: M79.641 - Pain in right hand COMPARISON: Comparison is made with the prior examination dated 09/15/2023. FINDINGS: Four views of the right hand are submitted. Osseous mineralization is normal. There is no fracture or dislocation. Again seen is severe osteoarthritis of the 1st carpometacarpal joint, with joint space narrowing and osteophyte formation. The remaining joint spaces are maintained. The soft tissues are unremarkable. XR/XR hand RT min 3V IMPRESSION: Severe osteoarthritis of the 1st carpometacarpal joint. Electronically signed by: Dwight Tovar MD 03/29/2025 03:18 PM EDT
== END 2025-03-28 12:45 | disposition home or self-care (01) ==
LOC: HO.HOSX 12:44
PROVIDERS: Visit Provider Orthopaedic Surgery
DX: M79.641 Pain in right hand (principal); M18.11 Unilateral primary osteoarthritis of first carpometacarpal joint, right hand
CPT/HCPCS: 20600; 73130; 99212; J1010; J2003

== ENCOUNTER → 2025-03-28 12:44 | Outpatient (BNV) | payer MEDICARE, OTHER, SELFPAY | PROVIDERS: Visit Provider Radiology Diagnostic Radiology | DX: M18.11 Unilateral primary osteoarthritis of first carpometacarpal joint, right hand (principal) | CPT/HCPCS: 73130 ==

== ENCOUNTER → 2025-06-29 08:58 | Outpatient (BNVA) | payer MEDICARE, OTHER, SELFPAY | PROVIDERS: PCP Nurse Practitioner Family | DX: Z01.30 Encounter for examination of blood pressure without abnormal findings (principal) | CPT/HCPCS: 99211 ==

== ENCOUNTER 2025-07-03 09:57 | Outpatient (REF) | payer MEDICARE, OTHER, SELFPAY ==
--- OUTSIDE RECORDS SUMMARY | 2025-07-03 10:28 | XMS_ITS | Patient Health Record ---
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 Name Role Phone GOPI QUINN Primary Care Provider Alexis Bajwa Jr Unavailable Reason For Referral No Information Medications Medication SIG (Take, Route, Frequency, Duration) Notes [...] MG/ML 1 ml Subcutaneous as directed Active Immunizations Vaccine Route Administration Date Status Comme nts Influenza Unknown 08/17/2018 Administered Problems Problem Type SNOMED Code ICD Code Onset Dates Problem Status W/U Status Risk Notes Problem 252009122 Colon cancer screening (Z12.11) Active confirmed Problem 13760597 Rectal bleeding (K62.5) Active confirmed Problem 183096539 Gastroesophageal reflux disease without esophagitis (K21.9) Active confirmed Problem 28861557 Hypertension, unspecified type (I10) Active confirmed Plan Of Treatment Future Test Test Name Order Date UPPER GI ENDOSCOPY 02/09/2013 COLONOSCOPY 02/09/2013 COLONOSCOPY 12/18/2016 UPPER GI ENDOSCOPY 10/05/2018 COLONOSCOPY 10/05/2018 Insurance Providers Payer Name Payer Address Payer Phone Subscriber Number Group Number Insured Name Patient Relationship to Insured Coverage Start Date Coverage End Date MEDICARE OF [place] [address] [place] [address] [id number] KARINAAIDA GATICA Self - patient is the insured [facility] VIKRAMNI [address] [place] [phone] [id number] AIDA SCHULTZ Self - patient is the insured Medical (General) History Medical History History ICD Code psoriasis gastroesophageal reflux disease (GERD) hypertension hyperlipidemia asthma onychomycosis Denies [place],DM,CVA,renal disease sleep apnea Surgical History Surgery Date(Month/Year) lipoma bladder surgery X 2 tonsillectomy and adenoidectomy hernia repair sleep apnia surgery prostate surgery-removal of scar tissue
[2025-07-03 13:15] LABS: Appearance Urine Clear; Glucose Urine UA Negative (Negative); PH 5.5 (5.0-9.0); Specific Gravity - Urine 1.020 (1.005-1.025)
[2025-07-03 13:42] LABS: MANUAL DIFF FLAG NO
[2025-07-03 13:52] LABS: Hematocrit 38.6 % (42.0-52.0); Hemoglobin 13.1 g/dl (14.0-18.0); Imm Gran Abs Auto 0.01 X10*3/uL (0.00-0.03); Imm Gran Pct Auto 0.2 % (0.0-0.4); Lymphocytes Absolute Auto 1.5 X10*3/uL (1.2-4.9); Mean Corpuscular HGB Conc 33.9 g/dl (31.0-36.0); Mean Corpuscular Hemoglobin 29.5 pg (27.0-33.0); Mean Corpuscular Volume 86.9 fL (80.0-98.0); NRBC Abs Auto 0.000 X10*3/uL (0.0-0.012); NRBC Pct Auto 0.0 /100WBC (0.0-0.2); Platelet Count 205 X10*3/uL (160-400); Red Blood Count 4.44 X10*6/uL (4.60-5.80); White Blood Count 5.9 X10*3/uL (4.8-10.8)
[2025-07-03 14:25] LABS: Alanine Aminotransferase 55 U/L (0-40); Albumin Level 4.7 g/dL (3.5-5.0); Alkaline Phosphatase 73 U/L (39-117); Anion Gap 12 (12-20); Aspartate Amino Transferase 46 U/L (5-37); Blood Urea Nitrogen 21 mg/dL (9-16); Calcium 9.4 mg/dL (8.4-10.2); Carbon Dioxide 25 mmol/L (22-29); Chloride 107 mmol/L (96-108); Cholesterol 214 mg/dL (<200); Estimated Glomerular Filt Rate 58; HDL Cholesterol 43 mg/dL (>40); Potassium 4.3 mmol/L (3.3-5.1); Sodium 140 mmol/L (135-145); Total Protein 7.2 g/dL (6.5-8.0); Triglycerides 239 mg/dL (<150)
== END 2025-07-03 09:58 | disposition home or self-care (01) ==
LOC: HO.HMGCLDS 09:57
PROVIDERS: PCP Nurse Practitioner Family; Visit Provider Nurse Practitioner Family
DX: I10 Essential (primary) hypertension (principal); Z12.5 Encounter for screening for malignant neoplasm of prostate
CPT/HCPCS: 36415; 80053; 80061; 81003; 84153; 84443; 85025

== ENCOUNTER 2025-08-28 09:53 | Outpatient (AMB) | payer MEDICARE, OTHER, SELFPAY ==
[2025-08-28 09:59] VITALS: BP 156/100; PULSE 89; RESP 16; O2SAT 98; BMI 37.2
--- NOTE | 2025-08-28 09:59 | MHC.PC.OV ---
Vital Signs 08/28/25 09:59 08/28/25 10:57 Height 6 ft 1 in Weight 282 lb BMI 37.2 BP 156/100 H 148/100 H Blood Pressure Location Lt brachial Rt brachial Position Sitting Sitting Respiration 16 Pulse 89 Pulse Source Pulse Oximeter Pulse Oximetry (%) 98 Oxygen Delivery Method Room Air Intake Visit Reasons: BP, med followup Allergies oxycodone Allergy (Unknown, Verified 08/28/25 11:03) itchy ENVIRONMENTAL Allergy (Unknown, Uncoded 08/28/25 11:03) ITCHY EYES, WHEEZING statins Allergy (Unknown, Uncoded 08/28/25 11:03) hives Tremfya Allergy (Unknown, Uncoded 08/28/25 11:03) secondary rash Medication List - Last Reconciled 08/28/25 by Landon Wong, ENERGY CONSERVATION TECHNICIAN- albuterol sulfate 2.5 mg (3 mL) inhalation Q4-6H PRN albuterol sulfate 90 mcg/actuation 1 inh inhalation QID PRN aspirin (Adult Aspirin Regimen) 81 mg PO DAILY budesonide-formoterol 160-4.5 mcg/actuation (Symbicort) 2 puffs inhalation BID 30 days cetirizine 10 mg PO DAILY clotrimazole mg PO BID ezetimibe 10 mg PO DAILY 90 days losartan 50 mg PO BID 90 days montelukast 10 mg PO BEDTIME mupirocin 2% 1 appl topical DAILY pantoprazole 40 mg PO DAILY 90 days tirzepatide (weight loss) (Zepbound) 2.5 mg (0.5 mL) subcut QWEEK Tobacco use date assessed: 12/18/24 Dental Screening Dental Screen Date: 12/18/24 HPI BP, med followup HPI Details Chief Complaint The patient reports difficulty breathing, with good and bad days, mostly bad. History of Present Illness The patient is a 70-year-old male presenting with a generalized follow-up visit. He has a history of long-term COVID-19 and severe asthma, which contribute to his breathing difficulties. The patient experiences good and bad days, with a predominance of bad days, and reports not using his Symbicort inhaler consistently, although it provides relief when used. The patient has dyslipidemia and cannot tolerate statins, currently managed with Zetia. He is also on aspirin for coronary artery disease, and a coronary artery calcification was noted on a previous chest CT scan, although the scan was otherwise negative. The patient reports allergies, particularly to cats and dogs, and is being considered for Montelukast addition to his regimen. The patient experiences significant dyspnea, particularly when walking short distances, attributed to long-term COVID-19 and asthma. His blood pressure remains elevated, and an increase in losartan dosage has been planned, with home monitoring advised. obesity: currently cannot participate in a walking routine due to his SOB. I hanny he would be a good candidate for a Glp-1 agonist, will send Social History Health Maintenance Review of Systems - Respiratory: Reports dyspnea, particularly when walking short distances. -denies any fevers, chills, cp, n/v Physical Exam General: Cooperative, healthy appearing, comfortable, no acute distress and well developed Orientation: Patient oriented x3 Limitations: No limitations Head: Normal to inspection Ears: Hearing grossly normal bilaterally Nose: Normal external nose present Face and sinus: Normal facial exam Eyes: Appearance normal, both eyes and all related structures Neck: Normal visual inspection and Yes full ROM Respiratory: Normal respiratory effort and able to speak in complete sentences. Clear to auscultation bilaterally currently. Cardiovascular: Regular rate and rhythm. Normal S1 and S2 GI: Normal to inspection. Soft to palpation and nontender Skin: No rashes or lesions noted Neuro: Patient oriented x3 Extremities: Normal to inspection Results - Imaging: Chest CT scan negative except for coronary artery calcification Plan Patient was informed and verbally consented to the use of an ambient scribe for clinic note documentation during this visit. 1. Long-Term Covid-19 The patient continues to experience significant dyspnea, particularly when walking short distances, attributed to long-term COVID-19 and asthma. I will reach out to his pulmonary team to coordinate care and confirm follow-up plans. 2. Severe Asthma The patient reports not using his Symbicort inhaler consistently, although it provides relief when used. I will increase the dose and emphasize the importance of daily use and rinsing the mouth after each use. 3. Dyslipidemia The patient cannot tolerate statins and is currently managed with Zetia. I am considering adding Padre [place]-Bergamot pending review of his lab results. 4. Coronary Artery Disease The patient is on aspirin for coronary artery disease, and a coronary artery calcification was noted on a previous chest CT scan. 5. Allergic Rhinitis The patient reports allergies, particularly to cats and dogs. I plan to add Montelukast to his regimen to manage these symptoms. 6. Hypertension The patient's blood pressure remains elevated, and I plan to increase his losartan dosage from 50 mg once daily to 50 mg twice daily. I have advised home monitoring of blood pressure with values to be sent via the portal. 7. obesity starting glp 1 agonist, denies any hx of pancreatitis, went over major side effects and mechanism of action. Discussion Notes I discussed with the patient the importance of consistent use of Symbicort for asthma management and the need to rinse his mouth after use to prevent oral side effects. We also talked about the potential addition of [place]-B[place]amot for dyslipidemia management, pending lab review. I advised increasing losartan dosage for hypertension and emphasized the importance of home blood pressure monitoring. Patient Instructions - Use Symbicort daily and rinse mouth after each use. - Monitor blood pressure at home and send readings via the portal. - Await further instructions regarding potential addition of Padre [place]amot. [facility] Medical History (Updated 01/31/25 @ 12:17 by ANANT Wallace) Mild ascending aorta dilatation Psoriatic arthritis Balanitis Gross hematuria Feeling of incomplete bladder emptying Benign prostatic hyperplasia with lower urinary tract symptoms Nocturia Asthma GERD (gastroesophageal reflux disease) Surgical History History of surgery History of prostate surgery H/O umbilical hernia repair Family History Father Diabetes Hypertension Cancer Mother Hypertension Cancer Social History Housing: House Patient Tobacco Use Status: Never used Tobacco e-Cigarette/Vaping Use: Never Used Second Hand Smoke Exposure: No Current occupational status: 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 Cognitive needs: No Hearing needs: No Vision needs: No Questionnaire Thrive Questionnaire Date Thrive assessed: 12/17/24 I am a: Patient What is your living situation today?: I have a steady place to live Within the past 12 months, did the food you bought not last and you didn't have the money to get more?: Never true Within the past 12 months, did you worry whether your food would run out before you got money to buy more?: Never true Do you have trouble paying for medicines?: No Do you have trouble getting transportation to medical appointments?: No Do you have trouble paying your heating and electricity bill?: No Do you have trouble taking care of your child, family member or friend?: No Do you have trouble with day-to-day activities such as bathing, preparing meals, shopping, managing finances, etc.?: No Are you currently unemployed and looking for a job?: No Are you interested in more education?: No Please select the resources that you would like help with: None Currently or been in a relationship where the following occur: No concerns reported THRIVE Score: 0 PATRICIA-7 AMB Questionnaire PATRICIA-7 Date PATRICIA - 7 assessed: 12/18/24 Source: Developed by Drs. Dwight Ferreira, Yoselin Ruavlcaba, Curt Tabares and colleagues, with an educational salina from [employer]. Physical exam (Primary Care) Vital Signs: Last Vital Signs Pulse 89 08/28/25 09:59 Resp 16 08/28/25 09:59 BP 156/100 H 08/28/25 09:59 Pulse Ox 98 08/28/25 09:59 Oxygen Delivery Method Room Air 08/28/25 09:59 BMI result Body Mass Index 37.2 Tobacco/Smoking Status: Tobacco use Status Tobacco use date assessed 12/18/24 08/28/25 09:59 Patient Tobacco Use Status Never used Tobacco 08/28/25 09:59 e-Cigarette/Vaping Use Never Used 08/28/25 09:59 Thrive Assessment: Date of Thrive Assessment Date Thrive assessed 12/17/24 08/28/25 09:59 Currently or been in a relationship where the following occur: No concerns reported Coding Level of Care Code Est Pt Level 4 (61025) Diagnoses Long COVID U09.9 Assessment & Plan Assessment & Plan (1) Long COVID: Code(s): U09.9 - Post COVID-19 condition, unspecified Category: Medical Plan . Orders: Orders Comprehensive [place]. Panel Fast Today U09.9 - Post COVID-19 condition, unspecified UA CC w/rflx Micro + Cult Today U09.9 - Post COVID-19 condition, unspecified Complete Blood Count Auto Diff Today U09.9 - Post COVID-19 condition, unspecified TSH reflex Free T4 Today U09.9 - Post COVID-19 condition, unspecified Lipid Panel Today U09.9 - Post COVID-19 condition, unspecified Medications: New budesonide-formoterol 160-4.5 mcg/actuation (Symbicort) 2 puffs inhalation BID 10.2 grams 0RF 30 days montelukast 10 mg PO BEDTIME 30 tabs 2RF tirzepatide (weight loss) (Zepbound) for 4 weeks 2.5 mg (0.5 mL) subcut QWEEK 2 mL 0RF Changed From losartan 50 mg PO DAILY 90 tabs 0RF To losartan 50 mg PO BID 180 tabs 0RF 90 days Discontinued budesonide-formoterol 80-4.5 mcg/actuation Discontinued Reason: Doctor's Order 2 puffs inhalation BID 30.6 ea 1RF
--- OUTSIDE RECORDS SUMMARY | 2025-08-28 10:53 | XMS_ITS | Patient Health Record ---
Author Organization [facility] Address [address] [place] [address] Care Team Providers Care Lead Database Administrator Name Role Phone GOPI QUINN Primary Care [...] Problem Status W/U Status Risk Notes Problem 226136877 Colon cancer screening (Z12.11) Active confirmed Problem 73552604 Rectal bleeding (K62.5) Active confirmed Problem 906587542 Gastroesophageal reflux disease without esophagitis (K21.9) Active confirmed Problem 45230179 Hypertension, unspecified type (I10) Active confirmed Plan Of Treatment Future Test Test Name Order Date UPPER GI ENDOSCOPY 02/09/2013 COLONOSCOPY 02/09/2013 COLONOSCOPY 12/18/2016 UPPER GI ENDOSCOPY 10/05/2018 COLONOSCOPY 10/05/2018 Insurance Providers Payer Name Payer Address Payer Phone Subscriber Number Group Number Insured Name Patient Relationship to Insured Coverage Start Date Coverage End Date MEDICARE OF [place] [address] [place] [address] [id number] KARINAAIDA GATICA Self - patient is the insured [facility] VIKRAMNI [address] [place] [phone] [id number] AIDA SCHULTZ Self - patient is the insured Medical (General) History Medical History History ICD Code psoriasis gastroesophageal reflux disease (GERD) hypertension hyperlipidemia asthma onychomycosis Denies [place],DM,CVA,renal disease sleep apnea Surgical History Surgery Date(Month/Year) lipoma bladder surgery X 2 tonsillectomy and adenoidectomy hernia repair sleep apnia surgery prostate surgery-removal of scar tissue
[2025-08-28 10:57] VITALS: BP 148/100
== END 2025-08-28 12:19 | disposition home or self-care (01) ==
LOC: HO.HMCC 09:54
PROVIDERS: PCP Nurse Practitioner Family; Visit Provider Nurse Practitioner Family
DX: U09.9 Post COVID-19 condition, unspecified (principal)

== ENCOUNTER 2025-08-28 09:53 | Outpatient (REF) | payer MEDICARE, OTHER, SELFPAY ==
[2025-08-28 13:36] LABS: MANUAL DIFF FLAG NO
[2025-08-28 13:39] LABS: Hematocrit 40.9 % (42.0-52.0); Hemoglobin 14.1 g/dl (14.0-18.0); Imm Gran Abs Auto 0.02 X10*3/uL (0.00-0.03); Imm Gran Pct Auto 0.3 % (0.0-0.4); Lymphocytes Absolute Auto 1.5 X10*3/uL (1.2-4.9); Mean Corpuscular HGB Conc 34.5 g/dl (31.0-36.0); Mean Corpuscular Hemoglobin 29.6 pg (27.0-33.0); Mean Corpuscular Volume 85.7 fL (80.0-98.0); NRBC Abs Auto 0.000 X10*3/uL (0.0-0.012); NRBC Pct Auto 0.0 /100WBC (0.0-0.2); Platelet Count 212 X10*3/uL (160-400); Red Blood Count 4.77 X10*6/uL (4.60-5.80); White Blood Count 6.6 X10*3/uL (4.8-10.8)
[2025-08-28 13:49] LABS: Appearance Urine Clear; Glucose Urine UA Negative (Negative); PH 5.5 (5.0-9.0); Specific Gravity - Urine 1.015 (1.005-1.025)
[2025-08-28 16:26] LABS: Alanine Aminotransferase 59 U/L (0-40); Albumin Level 5.0 g/dL (3.5-5.0); Alkaline Phosphatase 75 U/L (39-117); Anion Gap 13 (12-20); Aspartate Amino Transferase 40 U/L (5-37); Blood Urea Nitrogen 17 mg/dL (9-16); Calcium 9.7 mg/dL (8.4-10.2); Carbon Dioxide 27 mmol/L (22-29); Chloride 106 mmol/L (96-108); Cholesterol 232 mg/dL (<200); Estimated Glomerular Filt Rate 58; HDL Cholesterol 50 mg/dL (>40); Potassium 4.5 mmol/L (3.3-5.1); Sodium 141 mmol/L (135-145); Total Protein 7.6 g/dL (6.5-8.0); Triglycerides 265 mg/dL (<150)
== END 2025-08-28 09:54 | disposition home or self-care (01) ==
LOC: HO.HMGCLDS 09:53
PROVIDERS: PCP Nurse Practitioner Family; Visit Provider Nurse Practitioner Family
DX: U09.9 Post COVID-19 condition, unspecified (principal); Z79.82 Long term (current) use of aspirin; Z79.899 Other long term (current) drug therapy
CPT/HCPCS: 36415; 80053; 80061; 81003; 84443; 85025; 99212

== ENCOUNTER 2025-10-02 11:27 | Outpatient (AMB) | payer MEDICARE, OTHER, SELFPAY ==
[2025-10-02 11:30] VITALS: BP 130/88; PULSE 88; O2SAT 97; BMI 36.2
--- NOTE | 2025-10-02 11:30 | A.OFFVIS_ITS ---
Vital Signs 10/02/25 11:30 Height 6 ft 1 in Weight 274 lb 8 oz BMI 36.2 BP 130/88 Blood Pressure Location Rt brachial Position Sitting Pulse 88 Pulse Source Pulse Oximeter Pulse Oximetry (%) 97 Oxygen Delivery Method Room Air Intake Visit Reasons: Shortness of breath Allergies oxycodone Allergy (Unknown, Verified 10/02/25 11:33) itchy ENVIRONMENTAL Allergy (Unknown, Uncoded 10/02/25 11:33) ITCHY EYES, WHEEZING statins Allergy (Unknown, Uncoded 10/02/25 11:33) hives Tremfya Allergy (Unknown, Uncoded 10/02/25 11:33) secondary rash HPI HPI Shortness of breath: Details: Kwabena is a pleasant 69 year old male, never smoker, with underlying asthma since childhood, psoriatric arthritis previously on skyrizi, GERD, severe STEPHANIE could not tolerate CPAP, HTN and BPH. He was last seen November 2024 and presents to follow up. At the last visit he was sent for chest CT, unremarkable and PFT demonstrated mild obstructive defect consistent with poorly controlled asthma. Over the last month patient has been using Symbicort 160 mcg 2 inhalations BID consistently in addition to Singulair with significant improvements in symptoms. He reports resolution of wheezing, continues with dyspnea however much improved and occasional productive cough with clear sputum. He uses albuterol MDI infrequently. He denies any visits urgent care or hospitalizations related to respiratory distress since the last visit. [facility] Medical History (Updated 10/02/25 @ 11:36 by Whitney Menchaca NP) Mild ascending aorta dilatation Psoriatic arthritis Balanitis Gross hematuria Feeling of incomplete bladder emptying Benign prostatic hyperplasia with lower urinary tract symptoms Nocturia Asthma GERD (gastroesophageal reflux disease) Surgical History History of surgery History of prostate surgery H/O umbilical hernia repair Family History Father Diabetes Hypertension Cancer Mother Hypertension Cancer Social History Housing: House Patient Tobacco Use Status: Never used Tobacco e-Cigarette/Vaping Use: Never Used Second Hand Smoke Exposure: No Current occupational status: 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 Cognitive needs: No Hearing needs: No Vision needs: No Review of Systems Const Denies chills, Denies excessive sweating, Denies fever(s), Denies headache(s) and Denies night sweats Eyes Denies dry eyes, Denies irritation and Denies itchy eyes ENT Reports Normal hearing present, Denies headache(s) and Denies sore throat Card Denies chest pain, Denies chest pain at rest, Denies chest pain with activity, Denies claudication, Denies leg edema, Reports dyspnea on exertion, Denies orthopnea and Denies paroxysmal nocturnal dyspnea Resp Denies change in phlegm color, Denies chest congestion, Reports cough, Denies hemoptysis, Denies excessive phlegm production, Denies pain on inspiration, Denies pain with cough, Reports dyspnea on exertion, Denies stridor and Denies wheezing Musc Denies myalgias Neuro Reports Normal hearing present and Denies headache(s) Endo Denies excessive sweating Mario/Lymph Denies lymphadenopathy Aller/Immun Denies itchy eyes, Denies seasonal rhinorrhea and Denies wheezing Physical Exam Vital Signs: Last Vital Signs Pulse 88 10/02/25 11:30 BP 130/88 10/02/25 11:30 Pulse Ox 97 10/02/25 11:30 Oxygen Delivery Method Room Air 10/02/25 11:30 BMI result Body Mass Index 36.2 Const General: cooperative, healthy appearing, comfortable, no acute distress, well developed and alert Nutritional Appearance: obese Orientation/consciousness: patient oriented x3 Limitations: no limitations HEENT Head: Yes normal to inspection, Yes normocephalic and Yes atraumatic Ears: hearing grossly normal bilaterally and external ears normal Eyes General: appearance normal, both eyes and all related structures Eyelids: Yes eyelids normal Sclerae: sclerae normal EOM: EOMs intact bilaterally Neck Neck: Yes normal visual inspection and Yes no lymphadenopathy Lymphatic: no lymphadenopathy noted Chest Chest palpation & inspection: normal inspection of the chest Resp Effort & Inspection: normal respiratory effort, able to speak in complete sentences, no audible wheezes, no cough, no stridor, not tachypneic, no tripod positioning and no use of accessory muscles Auscultation: clear to auscultation bilaterally Cardio Jugular venous distension: no JVD Rate: regular rate Rhythm: regular rhythm Skin Other: warm, dry General skin exam: no rashes or lesions noted Neuro General: patient oriented x3 Cranial nerves: Yes Normal hearing present Cognition (Neuro): normal cognition Gait exam (Neuro): Normal gait present Extrem General: Yes normal to inspection, Yes capillary refill normal, Yes no clubbing, cyanosis or edema and Yes no pedal edema Psych Appearance: grossly normal and well kempt Speech and movement: Normal speech and movement present and Clear speech present Affect: normal affect Attitude: cooperative Thought process: Normal thought process present Thought content: Normal thought content present Insight: Good insight present (Psych) Judgement: Good judgement present (Psych) Results Reviewed Results Reviewed: [address] [address] [address] Scan Report Signed Patient: Kwabena Lucio MR#: [id number] : 1955 Acct:[id number] Age/Sex: 69 / M ADM Date: 01/26/25 Loc: HO.CT Attending Dr: Whitney Menchaca NP Ordering Physician: Whitney Menchaca NP Date of Service: 01/26/25 Procedure(s): CT chest wo IV con Accession Number(s): [id number] cc: Landon Wong [employer]-; Whitney Menchaca NP~ Report Number: [id number]: Total DLP = 317.00 mGy-cm CLINICAL HISTORY: U09.9 - Post COVID-19 condition, unspecified CT chest without contrast Comparison: None Findings: The heart size is normal. There is coronary arterial calcification. The visualized thyroid and mediastinum are otherwise unremarkable. The lungs are clear. The upper abdomen is unremarkable. The bones are intact. IMPRESSION: 1. Coronary artery calcification. 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 He is aware to call if symptoms change. Reviewed prior home sleep study 2019 which demonstrated severe STEPHANIE, patient previously could not tolerate CPAP therapy. We discussed importance of addressing this and he is motivated to work towards weight loss, recently started on GLP-1. Will review at next visit and consider repeating sleep study. In the mean time, discussed positional therapy. All questions were answered and patient is in agreement of plan. Will follow up in 3 months or sooenr if needed. Medications: New amlodipine 2.5 mg PO DAILY 30 tabs 2RF 30 days Landon Wong, [employer]- Refilled albuterol sulfate 90 mcg/actuation used for acute shortness of breath 1 inh inhalation QID PRN 1 ea 3RF shortn ess of breath or wheezing Whitney Menchaca NP Coding Level of Care Code Est Pt Level 4 (37667) Diagnoses Asthma-COPD overlap syndrome J44.9 Environmental allergies Z91.09 Cough R05.9
--- OUTSIDE RECORDS SUMMARY | 2025-10-02 14:05 | XMS_ITS | Patient Health Record ---
Author Organization [facility] Address [address] [place] [id number] Care Team Providers Care Legal Collector Name Role Phone GOPI QUINN Primary Care Provider Alexis Bajwa Jr Unavailable Reason For Referral No Information Medications Medication SIG (Take, Route, Frequency, Duration) Notes Start Date End Date Status Pantoprazole Sodium 40 MG 1 tablet Orall y Every AM; Duration: 90 Active Suprep Bowel Prep 1 as directed Orally 1 ; Duration: 1 dose Active Aspir-81 81 MG 1 [...] Problem Status W/U Status Risk Notes Problem Colon cancer screening (796310104) Colon cancer screening (Z12.11) Active confirmed Problem Rectal bleeding (34907024) Rectal bleeding (K62.5) Active confirmed Problem Gastroesophageal reflux disease without esophagitis (984495282) Gastroesophageal reflux disease without esophagitis (K21.9) Active confirmed Problem Essential hypertension (19245047) Hypertension, unspecified type (I10) Active confirmed Plan Of Treatment Future Test Test Name Order Date UPPER GI ENDOSCOPY 02/09/2013 COLONOSCOPY 02/09/2013 COLONOSCOPY 12/18/2016 UPPER GI ENDOSCOPY 10/05/2018 COLONOSCOPY 10/05/2018 Insurance Providers Payer Name Payer Address Payer Phone Subscriber Number Group Number Insured Name Patient Relationship to Insured Coverage Start Date Coverage End Date MEDICARE OF [place] [address] [place] [address] [id number] AIDA SCHULTZ Self - patient is the insured [facility] [address] [place] [address] [phone] [id number] AIDA SCHULTZ Self - patient is the insured Medical (General) History Medical History History ICD Code psoriasis gastroesophageal reflux disease (GERD) hypertension hyperlipidemia asthma onychomycosis Denies NE,DM,CVA,renal disease sleep apnea Surgical History Surgery Date(Month/Year) lipoma bladder surgery X 2 tonsillectomy and adenoidectomy hernia repair sleep apnia surgery prostate surgery-removal of scar tissue
== END 2025-10-02 12:01 | disposition home or self-care (01) ==
LOC: HO.HPSW 11:27
PROVIDERS: PCP Nurse Practitioner Family; Visit Provider Nurse Practitioner Family
DX: J44.9 Chronic obstructive pulmonary disease, unspecified (principal); Z91.09 Other allergy status, other than to drugs and biological substances; R05.9 Cough, unspecified
CPT/HCPCS: 99214

== ENCOUNTER → 2025-10-02 11:27 | Outpatient (BNVA) | payer MEDICARE, OTHER, SELFPAY | PROVIDERS: PCP Nurse Practitioner Family; Visit Provider Nurse Practitioner Family | DX: J44.9 Chronic obstructive pulmonary disease, unspecified (principal); R05.9 Cough, unspecified; Z91.09 Other allergy status, other than to drugs and biological substances | CPT/HCPCS: 99212 ==